=== PATIENT | male | born 1945 | race Caucasian/White ===

== ENCOUNTER 2017-05-05 23:49 | Inpatient (IN) ==
[2017-05-06] MEDS ORDERED: NS 1,000 ML IV ONE ×4 (00:05→00:58)
[2017-05-06] MEDS ORDERED: LANOXIN IV ONE ×2 (00:16→10:36)
[2017-05-06] MEDS ORDERED: OFIRMEV 1000 MG/ISOTONIC SOLN 1,000 MG/100 ML BOTTLE IV ONE (00:17)
[2017-05-06] MEDS ORDERED: VANCOMYCIN 1 GM/NS 1 GM/250 ML IVPB IV ONE (00:49)
[2017-05-06] MEDS ORDERED: VANCOMYCIN 2,000 MG in NS 500 ML IV ONE (01:00)
[2017-05-06 01:06] LABS: BASO% 0.1 % (0.0-0.8); EOS# 0.07 X1000 (0.0-0.7); EOS% 0.8 % (0.0-10.0); HEMATOCRIT 27.7 % (42.0-52.0); IMM GRAN# 0.02 X1000 (0.0-0.04); IMM GRAN% 0.2 % (0.0-0.5); LYMPH% 2.4 % (20.5-51.1); MANUAL DIFF NEEDED? NO; MCHC 32.5 g/dL (33-37); MONO# 0.76 X1000 (0.11-0.59); MONO% 9.2 % (1.7-9.3); NEUT% 87.3 % (42.2-75.2); PLT 166 X1000 (130-400); RBC 3.22 XMIL (4.7-6.1)
[2017-05-06 01:09] LABS: ALBUMIN 3.5 g/dL (3.5-5.0); CALCIUM 8.9 mg/dL (8.8-10.2); INR 1.19; POTASSIUM 3.9 mmol/L (3.5-5.1); PROTIME 12.6 Seconds (9.2-11.7); PTT 33.4 Seconds (22.0-36.0); TOTAL BILIRUBIN 0.8 mg/dL (0.20-1.00); TOTAL PROTEIN 7.3 g/dL (6.3-8.3)
[2017-05-06 01:14] LABS: URINE MICRO REVIEW NEEDED? NO; URINE SOURCE CATH
[2017-05-06 01:16] LABS: BILIRUBIN URINE NEGATIVE (NEGATIVE); BLOOD URINE MODERATE (NEGATIVE); COLOR YELLOW; GLUCOSE URINE NEGATIVE (NEGATIVE); LEUKOCYTES URINE MODERATE (NEGATIVE); NITRITE URINE NEGATIVE (NEGATIVE); PH URINE 5.5; PROTEIN URINE 50 mg/dL (NEGATIVE); SP GRAVITY URINE 1.015; TURBIDITY URINE HAZY (CLEAR); UROBILINOGEN URINE NORMAL (NORMAL)
[2017-05-06 01:17] LABS: UR EPITHELIAL CELLS <10 /HPF (<10); URINE BACTERIA 2+ /HPF
[2017-05-06 01:31] LABS: CK INDEX 1.8 (0.0-2.5); CK-MB 3.89 ng/mL (0.0-5.0)
[2017-05-06] MEDS: LEVOPHED 8 MG in D5 1/2 NS 250 ML IV SCH ×4 (01:57→02:55)
--- NOTE | 2017-05-06 02:03 | PROVIDER DOCUMENTATION ---
This chart was entered by Sharon Calzada Scribe, acting as scribe for Ruperto Henning MD. HPI-General Adult - General Stated Complaint: weakness Time Seen by Provider: 05/05/17 23:54 Source: patient Allergies/Adverse Reactions: Patient Allergies Allergy/AdvReac Type Severity Reaction Status Date / Time bacitracin Allergy Intermediate RASH Verified 12/17/16 17:13 [From Neosporin ([id number])] bacitracin zinc * Allergy Intermediate RASH Verified 12/17/16 17:13 [From Neosporin ([id number])] neomycin sulfate * Allergy Intermediate RASH Verified 12/17/16 17:13 [From Neosporin ([id number])] polymyxin B Allergy Intermediate RASH Verified 12/17/16 17:13 [From Neosporin ([id number])] Home Medications: Home Medication List Medication Instructions Recorded Confirmed Last Taken Type Aspirin 325 mg PO QHS 08/20/13 12/17/16 12/16/16 History Furosemide [Lasix] 40 mg PO BID 08/20/13 12/17/16 12/16/16 History Isosorbide Mononitrate [Isosorbide 60 mg PO DAILY 08/20/13 12/17/16 12/16/16 History Mononitrate ER] Labetalol [Trandate] 400 mg PO TID 08/20/13 12/17/16 12/16/16 History Metformin [Glucophage] 1,000 mg PO BID CC 08/20/13 12/17/16 12/16/16 History Minoxidil 2.5 mg PO BID 08/20/13 12/17/16 12/16/16 History Montelukast [Singulair] 10 mg PO DAILY 08/20/13 12/17/16 12/16/16 History Nitroglycerin [Nitroglycerin 1 spray SL Q5M PRN 08/20/13 12/17/16 06/21/16 History Lingual [place]] Omeprazole [Prilosec] 40 mg PO DAILY 08/20/13 12/17/16 12/16/16 History Potassium Chloride 20 meq PO BID 08/20/13 12/17/16 12/16/16 History Tamsulosin [Flomax] 0.4 mg PO DAILY 08/20/13 12/17/1612/16/17 History Triazolam [Halcion] 0.125 mg PO QHS 08/20/13 12/17/16 12/16/16 History Apixaban [Eliquis] 2.5 mg PO BID 06/29/16 12/17/16 12/16/16 History Cyanocobalamin (Vitamin B-12) 1,000 mcg PO BID 06/29/16 12/17/16 12/16/16 History [Vitamin B-12] Folic Acid 1 mg PO 1200 06/29/16 12/17/16 12/16/16 History Ranolazine [Ranexa] 500 mg PO BID 06/29/16 12/17/16 12/16/16 History Hydrocodone/Acetaminophen [[place] 1 each PO Q4HR PRN 06/30/16 12/17/16 12/16/16 History 10-325 Tablet] Magnesium Citrate [Citrate of 296 ml PO DIRECTED #0 bottle 06/30/16 12/17/16 Unknown Rx Magnesia] Colestipol [Colestid] 1 gm PO DAILY 12/17/16 12/17/16 12/16/16 History Losartan/Hydrochlorothiazide 1 each PO DAILY 12/17/16 12/17/16 12/16/16 History [Hyzaar 100-25 Tablet] ATORVAstatin [Lipitor] 20 mg PO HS #0 tablet 12/18/16 Unknown Rx Acetaminophen [Tylenol] 650 mg PO Q6H PRN PRN #0 tablet 12/18/16 Unknown Rx Benzonatate [Tessalon Perle] 100 mg PO TID #60 capsule 12/18/16 Unknown Rx Clobetasol Prop 0.05% Cream 0 gm TOP BID #0 tube 12/18/16 Unknown Rx [Temovate 0.05% Cream] Multivitamins/Minerals [Centrum 1 each PO DAILY #0 tablet 12/18/16 Unknown Rx Silver] - History of Present Illness -Gen Adult Nature of Presenting Problems: 71 Y/O M presents to ED with Weakness. Pt states that he's been feeling fatigue all day, no other c/o. Pt is a poor historian, family states memory issues. Pt family states increased weakness since Wednesday, pt c/o of sore throat noted by family members. pt had a CT scan done due to incontinence issues yesterday. Location of Pain/Injury: reports: generalized Quality of Pain: reports: aching Severity: reports: moderate, severe Onset/Duration: reports: 4 days ago Timing: reports: still present Context/Activities at Onset: reports: none Associated Symptoms: reports: fatigue, genitourinary problems, weakness. denies : fever/chills Similar Symptoms Previously?: No Review of Systems - Adult - REVIEW OF SYSTEMS - ADULT Constitutional: reports: fever, fatique. denies: chills Eyes: reports: no symptoms reported Ears, Nose, Mouth & Throat: reports: no symptoms reported Cardiovascular: reports: irregular heart rate Respiratory: reports: no symptoms reported Gastrointestinal: reports: no symptoms reported Genitourinary: reports: incontinence. denies: dysuria, discharge Musculoskeletal: denies: bone pain, muscle aches, muscle weakness Integumentary: reports: no symptoms reported Neurological: reports: no symptoms reported Psychiatric: reports: no symptoms reported Endocrine: reports: no symptoms reported Hematologic/Lymphatic: reports: no symptoms reported Allergic/Immunologic: reports: no symptoms reported All Other Systems: Reviewed and Negative Past History - Adult - PAST MEDICAL HISTORY-ADULT Review of Records: reports: Old Records Reviewed, Nursing Assessment Review, Medications Reviewed, Social history reviewed & non-contributory. Cardiovascular: reports: HTN Respiratory: reports: sleep apnea Endocrine/Immune: reports: Diabetes Other Conditions: reports: other cancer (melanoma) - PRIOR SURGERIES/PROCEDURES Surgical/Procedure History: reports: CABG - IMMUNIZATION STATUS Childhood Immunizations: See Nurse Assessment Flu Vaccine: See Nurse Assessment - FAMILY HISTORY Family History: reviewed, not pertinent Physical Exam-General - CONSTITUTIONAL General Appearance: alert, mild distress - EYES Eyes: PERRL/EOMI, pink conjunctivae - HEAD, EARS, NOSE, MOUTH & THROAT HENMT: moist mucous membranes, normal ENT inspection, TMs normal, pharynx normal - NECK Neck: non-tender, full range of motion, supple, normal inspection - RESPIRATORY Respiratory: lungs clear - CARDIOVASCULAR Cardiovascular: tachycardia, other (afib) - GASTROINTESTINAL (ABDOMEN) Abdominal Exam: non tender, soft - MUSCULOSKELETAL Back Exam: normal inspection Extremity: pedal edema (1+ right leg), other (rt hand amputated) - SKIN Integumentary: normal turgor, warm/dry - PSYCHIATRIC Psych/Mental Status: oriented x 3 Progress - PLAN OF CARE/RESULTS Progress/Plan/Lab Results: Orders Category Date Time Status EKG [EKG] Stat Ther 05/06/17 00:00 Ordered Result Diagrams: 05/06/17 00:05 05/06/17 00:05 - EKG 1 Time of EKG reading by physician:: 23:58 EKG Read and Signed by:: Ruperto Henning EKG Interpretation (*Must complete 3 of following elements*): Abnormal Rate: 134 Rhythm: Afib with RVR QRS: other (Marked ST abnormality, possible inferolateral subendocardial injury. ) Comments: Abnormal ECG - CT/MRI 1 CT Study: Renal Stone Impression: Abnormal CT Results: no renal stone identified study ordered by 05/04/[address] Study: Thorax Impression: Normal CT Results: NAD 3 CT Study: Head Impression: Normal CT Results: nad - CONSULTS/PCP/HOSPITALIST Notification #1 *Consult/PCP/Hospitalist*: Time Discussed: 01:48 Reason/Comments: Admit Consult Disposition: Admit (Admit Accepted) Departure - Departure Date of Disposition Decision: 05/06/17 Time of Disposition Decision: 02:00 DIAGNOSIS: UTI (urinary tract infection) Qualifiers: Urinary tract infection type: acute pyelonephritis Qualified Code(s): N10 - Acute pyelonephritis Sepsis Qualifiers: Sepsis type: sepsis due to unspecified organism Qualified Code(s): A41.9 - Sepsis, unspecified organism Renal failure (ARF), acute on chronic Qualifiers: Acute renal failure type: unspecified Chronic kidney disease stage: unspecified stage Qualified Code(s): N17.9 - Acute kidney failure, unspecified; N18.9 - Chronic kidney disease, unspecified Disposition: ADMITTED INPATIENT 09 Certified Medical Emergency: Emergent Condition: Serious Referrals and Follow-Ups: Sky Flores MD [Primary Care Provider] - - Critical Care Note This patient required my direct & personal management of CC.: Yes Total Time (mins): 120 Critical Care Statement: This patient required my direct personal management to treat or rule out processes, the absence of which, could potentiallly result in sudden, clinically significant life or limb threatening deterioration. This chart was documented by the indicated scribe, ([place],Sharon, Scribe) and accurately reflects the services I performed and decisions made by me, Ruperto Henning MD, as attested by the provider's signature.
[2017-05-06 02:27] LABS: HEMOGLOBIN A1C 6.5 % (4.8-6.0)
[2017-05-06] MEDS ORDERED: MAXIPIME 1 GM/NS 1 GM/50 ML IVPB IV ONE (03:16)
[2017-05-06] MEDS ORDERED: NS 1,000 ML IV SCH (03:17)
[2017-05-06] MEDS ORDERED: ZOFRAN IV PRN (03:17)
[2017-05-06] MEDS ORDERED: NORCO-7.5 PO PRN (05:01)
--- NOTE | 2017-05-06 05:06 | SEPSIS: TISSUE PERFUSION ASSMT ---
Sepsis: Tissue Perfusion Assmt - Physical Exam Assessment Date: 05/06/17 Time Assessment Initialized: 02:00 Vital Signs: Last Vital Signs Temp 98.8 F 05/06/17 02:18 Pulse 114 H 05/06/17 03:59 Resp 23 05/06/17 03:59 BP 106/64 05/06/17 03:59 Pulse Ox 98 05/06/17 03:59 Lung Sounds:: lungs clear Heart Sounds:: Regular Capillary Refill Time: Less Than 2 Seconds Peripheral Pulse Evaluation:: radial (R): 3+, radial (L): 3+, dorsalis-pedis (R) : 3+, dorsalis-pedis (L): 3+ Skin Exam:: pink, turgor good - Impression Impression:: Tissue Perfusion Adequate - Plan Plan:: See Orders
--- NOTE | 2017-05-06 05:56 | EKG Report ---
Test Performed on : 05/05/2017 11:58:22 PM Test Reason : Weakness Blood Pressure : / mmHG Vent. Rate : 134 BPM Atrial Rate : 125 BPM P-R Int : 000 ms QRS Dur : 092 ms QT Int : 312 ms P-R-T Axes : 000 022 205 degrees QTc Int : 465 ms Atrial fibrillation. with rapid ventricular response. Marked ST abnormality, possible inferolateral subendocardial injury Abnormal ECG When compared with ECG of 18-DEC-2016 07:20, Vent. rate has increased BY [address] now depressed in Anterior leads T wave inversion now evident in Inferior leads T wave inversion now evident in Anterolateral leads Unconfirmed Result
[2017-05-06 06:03] LABS: URINE CULTURE NEEDED? YES
[2017-05-06] MEDS: HUMALOG SUBQ SCH ×4 (06:09→20:54)
--- NOTE | 2017-05-06 06:20 | Diag Imaging Result Doc PS360 ---
EXAM: CHEST-PORTABLE HISTORY: fever TECHNIQUE: Portable COMPARISON: 12/17/2016 FINDINGS: There are sternal wires and surgical clips. The heart is mildly enlarged. There is pulmonary edema. No pleural effusions identified. Questionable underlying infiltrate in the left base. IMPRESSION: 1.Cardiomegaly with pulmonary edema 2.Possible underlying infiltrate in the left base. Follow-up films recommended. Electronically signed by Fidel Carter 05/06/2017 6:18 AM
--- NOTE | 2017-05-06 06:24 | Diag Imaging Result Doc PS360 ---
EXAM: HEAD W/O CONTRAST HISTORY: fall TECHNIQUE: COMPARISON: 12/17/2016 FINDINGS: No parenchymal hemorrhage. No epidural or subdural hematoma. No subarachnoid hemorrhage. No mass identified on this noncontrasted exam. No hydrocephalus. There are chronic microvascular ischemic changes. Mild atrophy. No sinus opacification. IMPRESSION: 1.No hemorrhage. No injury. 2.Mild atrophy with chronic microvascular ischemic changes. 3.A preliminary report was given at 1:54 AM. Electronically signed by Fidel Carter 05/06/2017 6:22 AM
[2017-05-06] MEDS ORDERED: TYLENOL PO PRN (06:45)
--- NOTE | 2017-05-06 07:37 | Diag Imaging Result Doc PS360 ---
EXAM: CT THORAX W/O CONTRAST INDICATION: poss sepsis COMPARISON: 06/04/2016 FINDINGS: There are several bilateral lung nodules. Many of these are stable. There is a nodule in the right lower lobe on image 87 of series 3 that is not identified on the previous study measuring up to 7 mm. There is another nodule at the superior aspect of the right lower lobe abutting the posterior chest wall that measures up to 1.7 cm axially. This was probably the same nodule that was seen on the previous study where it measures 1.3 cm axially. Note that there was an attempted CT guided biopsy of this nodule on 06/29/2016. The pathology results are unknown. There is a lingular nodule on image 64 series 3 that may have increased marginally in size measuring up to 8.4 mm. The other nodules are essentially stable. There is mild dependent atelectasis at the lung bases. There is mild paraseptal emphysema at the upper lung zones. There is no pleural fluid collection and no pneumothorax. There is stable cardiomegaly. There are few calcified mediastinal and hilar lymph nodes indicating prior granulomatous disease. There is no new lymphadenopathy. There is a small amount of retained debris in the midesophagus. Esophageal wall is questionably slightly thickened. Correlate clinically to exclude mild esophagitis. There is bilateral adrenal gland thickening similar to the previous study, likely representing adrenal hyperplasia or underlying adrenal adenomas. There are calcified granulomata in the liver and spleen. The spleen is enlarged. The liver is partially imaged but is probably enlarged as well. IMPRESSION: 1.Several bilateral lung nodules as described with a new nodule on the right in the lower lobe and a couple nodules that have increased in size. Please see above discussion. 2.Small amount of debris in the midesophagus. Although questionable, there may be very minimal diffuse esophageal wall thickening, which could relate to esophagitis. 3.Splenomegaly and possible hepatomegaly. 4.Other incidental/nonacute findings detailed above. Electronically signed by Estuardo Perry 05/06/2017 7:35 AM
[2017-05-06 08:01] LABS: ALBUMIN 3.4 g/dL (3.5-5.0); CALCIUM 8.7 mg/dL (8.8-10.2); POTASSIUM 4.1 mmol/L (3.5-5.1)
[2017-05-06 08:04] LABS: BASO% 0.2 % (0.0-0.8); EOS# 0.02 X1000 (0.0-0.7); EOS% 0.2 % (0.0-10.0); HEMATOCRIT 29.4 % (42.0-52.0); HEMOGLOBIN 9.6 g/dL (14.0-18.0); IMM GRAN# 0.02 X1000 (0.0-0.04); IMM GRAN% 0.2 % (0.0-0.5); LYMPH# 0.38 X1000 (1.2-3.4); LYMPH% 4.1 % (20.5-51.1); MANUAL DIFF NEEDED? YES; MCH 28.4 PG (27-31); MCHC 32.7 g/dL (33-37); MONO# 0.33 X1000 (0.11-0.59); MONO% 3.6 % (1.7-9.3); MPV 10.6 FL (7.4-10.4); NEUT% 91.7 % (42.2-75.2); PLT 150 X1000 (130-400); RBC 3.38 XMIL (4.7-6.1)
[2017-05-06] MEDS ORDERED: NITROGLYCERIN SL PRN (08:04)
[2017-05-06] MEDS ORDERED: LABETALOL IV PRN (08:06)
[2017-05-06] MEDS ORDERED: LABETALOL IV ONE (08:06)
[2017-05-06] MEDS ORDERED: LASIX IV ONE (08:09)
[2017-05-06 08:10] LABS: LYMPHS 4 % (21-51); MONO 4 % (1-9)
[2017-05-06 08:25] LABS: CK-MB 7.7 ng/mL (0.0-5.0)
[2017-05-06 08:32] LABS: IRON SATURATION 6 %; TIBC 219 ug/dL; TOTAL IRON 14 ug/dL (53-167); UNBOUND IRON 205 ug/dL (112-346)
[2017-05-06 08:51] LABS: FERRITIN 196 ng/mL (30-400)
--- NOTE | 2017-05-06 08:55 | HISTORY AND PHYSICAL ---
PRIMARY CARE PROVIDER: Dr. Sky Flores. DATE AND TIME: May 06, 2017 at 0200. CHIEF COMPLAINT: Weakness, altered mental status, and multiple falls. HISTORY OF PRESENT ILLNESS: Mr. Dueñas is a 71-year-old male who presented to the ER [facility] with increasing weakness, altered mental status, and multiple falls over the past week. His family which include his son and his at bedside reported that since Wednesday the patient has had increasing weakness, confusion. He has fallen a total of 4 times. He has also had some nausea and vomiting as well and has had some hematuria. The patient's states that on Wednesday when he fell he did hit his head, though they denied any loss of consciousness. She states that since Wednesday he has also had symptoms of urinary incontinence. His reports that on Wednesday she tried to get a hold of Dr. Flores's office though was unable to do so and did get a hold of Dr. Brown's office and reported to them his symptoms of hematuria. Dr. Brown ordered a renal CT. He reported that his symptoms though continued to worsen and last night just prior to the patient's arrival to the ER he fell and was unable to get up off the floor, so his son and called an ambulance to come bring him to the ER for further evaluation. Upon arrival to the ER the patient was found to be febrile with a temperature of 103.1 degrees, heart rate 134, in atrial fibrillation with RVR, respirations were 30, blood pressure was 96/54. Oxygen saturation was 100% nasal cannula at 5 L. The patient was initially confused according to ER staff upon arrival. Shortly after his arrival the patient did become increasingly hypotensive. His blood pressure got down to as low as 74 systolic. He was started on sepsis protocol and given a fluid bolus according to sepsis protocol recommendations. He has now had a total of 5 L of normal saline bolus, though unfortunately his pressure continued to remain low and was placed on a Levophed drip. His white blood cell count is within normal limits at 8.29. His lactate is 1.4. He was found to have increased creatinine and a GFR from his baseline. Urine showed moderate blood, moderate leukocytes, 10-20 white blood cells, and 2+ bacteria. His renal CT performed on the did show some findings that may relate to a urinary bladder cystitis with early pyelonephritis on the left. His CT of the chest showed some right pulmonary nodules in his lung, splenomegaly, possible hepatomegaly with some mild esophageal wall thickening with retained debris in the midesophagus. Also the patient does take Eliquis for what we have found to be atrial fibrillation. Patient's denied him having any previous history of atrial fibrillation, though looking back at previous EKGs the patient has had this previously on other admissions. We did do a CT of his head due to this, though it showed no acute intracranial findings. The patient denies any dizziness, lightheadedness, headache, chest pain, shortness of breath, or cough. He denies any abdominal pain, though has had some nausea and vomiting as previously mentioned. He denies any diarrhea, though states his last bowel movement was approximately 2-3 days ago. He denies any hematemesis, hematochezia, or melena. He does report some urinary incontinence and a strong odor to his urine but denies any dysuria. The patient does have some chronic low back pain but other than this, he denies any pain, numbness, tingling or swelling in extremities. At this time. The patient will be admitted for further treatment evaluation of sepsis, urinary tract infection, acute kidney injury, hypotension, atrial fibrillation. We will be admitted inpatient to the ICU. REVIEW OF SYSTEMS: A 14 point review of systems was conducted with the patient and all were negative except for pertinent positives mentioned above in the HPI. PAST MEDICAL HISTORY: 1. Coronary artery disease, status post myocardial infarction and stent placement in 2002 with subsequent coronary artery bypass graft in June of 2009. 2. Diabetes mellitus type 2. 3. Gastroesophageal reflux disease. 4. Chronic kidney disease. 5. History of melanoma skin cancer. 6. Chronic low back pain from multiple low back surgeries. 7. Iron deficiency. 8. Anemia. 9. Previous left pulmonary nodules, followed by Dr. Maurice. 10. Chronic kidney disease. 11. Atrial fibrillation, currently on Eliquis 2.5 mg b.i.d. 12. Hypertension. 13. Hyperlipidemia. PAST SURGICAL HISTORY: 1. Cardiac stent placement in 2002. 2. Coronary artery bypass graft in 2008. 3. Cholecystectomy in 2008. 4. Lumbar fusion May 2010. 5. Lumbar laminectomy in 2001, 2003, and 2012. 6. A total of 4 surgeries in 2001, 2004, 2006, and 2008 for a right ankle fracture with pin placement. 7. Right hand surgery after a traumatic amputation from an industrial accident in 1981. SOCIAL HISTORY: The patient is a former smoker. The patient smoked 3-4 packs a day for 52 years. He quit smoking in 2008 when he had his coronary artery bypass graft. He denies any past or present alcohol or illicit drug use. He currently lives at home with his . FAMILY HISTORY: Positive for a stroke, heart disease, and cancer which is thought to be melanoma cancer. ALLERGIES: The patient reports allergy to Neosporin stating it causes him to have a rash. HOME MEDICATIONS: Folic acid 1 mg p.o. daily, Halcion 0.125 mg p.o. at bedtime , Flomax 0.4 mg p.o. daily, Ranexa 500 mg p.o. b.i.d., potassium chloride 10 mEq p.o. b.i.d., omeprazole 40 mg p.o. daily, nitroglycerin 0.4 mg sublingual p.r.n. for chest pain, Centrum Silver 1 p.o. daily, Singulair 10 mg p.o. daily, minoxidil 2.5 mg b.i.d., metformin 1000 mg p.o. b.i.d., Hyzaar 100/25 mg tablet 1 p.o. daily, labetalol 400 mg p.o. t.i.d., isosorbide mononitrate extended release 60 mg p.o. daily, [place] 10 mg p.o. q.4 hours p.r.n. for pain, Lasix 40 mg p.o. b.i.d., vitamin B12 1000 mcg p.o. b.i.d., Colestid 1 g p.o. daily, Temovate 0.05% cream 1 g topically b.i.d., aspirin 81 mg p.o. at bedtime, Eliquis 2.5 mg p.o. b.i.d., and Lipitor 20 mg p.o. daily. DIAGNOSTIC DATA: Laboratory results: White blood cell count 8.29, hemoglobin 9 , hematocrit 27.7, platelet count is 166,000. PTT is 33.4, INR 1.19, PT is 12.6. Sodium 135, potassium 3.9, chloride 94, bicarb is 35, BUN 59, creatinine 3.5, with a GFR of 17, glucose 142 , hemoglobin A1c 6.5, calcium is 8.9, magnesium 1.8. Liver function tests are within normal limits. CK is 217, CK index 1.8, CK-MB 3.89. Troponin 0.260. ProBNP 6,065. Plasma lactate 1.4. Urinalysis was obtained via catheter and was positive for protein, moderate blood, moderate leukocytes, 10-20 white blood cells, and 2+ bacteria. Renal CT performed on 05/04/2017 showed distal hydroureter with periureteral edema on the left. There is mild perinephric edema or scarring on the left. Hazy infiltration of fat around the urinary bladder. These findings may relate to urinary bladder cystitis with early pyelonephritis on the left. A recently passed stone from the left may also be considered. There is also uncomplicated sigmoid diverticulosis. Stable hepatosplenomegaly and bilateral adrenal enlargement. This was per radiology. A CT of the head showed no intracranial abnormality. This was per radiology. CT of the chest noncontrast showed unchanged left and new right lung pulmonary nodules. There is also mild esophageal wall thickening with retained debris in the midesophagus. Splenomegaly and possible hepatomegaly. EKG showed atrial fibrillation with RVR at a rate of 134 with a QTc of 465. PHYSICAL EXAMINATION: VITAL SIGNS: Temperature 98.8 degrees, heart rate 125, respirations 26, blood pressure 108/47, oxygen saturation is 97% nasal cannula at 2 L. GENERAL: Mr. Dueñas is a pleasant, 71-year-old male, who is resting in the ER stretcher. He was in no acute distress. He was awake and alert and able to answer questions appropriately. HEENT: Head is atraumatic, normocephalic. Pupils are equal, round, reactive to light, were 3 mm bilaterally and brisk. Sub conjunctivae were pink. Oral mucosa is slightly dry. Oropharynx is clear. NECK: Supple. Trachea midline. No carotid bruits noted upon auscultation bilaterally. There is some JVD noted. CARDIOVASCULAR: Patient has normal S1, S2. No murmurs, gallops, or rubs appreciated, with a tachycardic rate that is regular. PULMONARY: Patient has symmetrical chest expansion bilaterally. Lung sounds were clear in bilateral full son. ABDOMEN: Soft, nontender, though does appear to be slightly distended as the patient has a protuberant abdomen noted. Bowel sounds are present in all 4 quadrants, normoactive. GENITOURINARY: Patient does have a Dunn catheter in place at this time. He has slightly cloudy kang color urine noted to the Dunn drainage bag. EXTREMITIES: No cyanosis. No clubbing or edema noted. Pulse, motor, and sensory are noted in bilateral lower extremities and left upper extremity. The patient does have an amputation of his right arm right around the elbow, though he does have positive movement, sensation, and good capillary refill less than 3 in this extremity. Capillary refill is also less than 3 and other extremities as well. INTEGUMENTARY: Patient's skin is pink, warm, dry, and intact. The patient does have a hard, thickened callus noted to his left great toe, as well as he is third right toe. He does have a previous amputation of his right great toe noted as well. NEUROLOGICAL: Patient is alert and oriented to person, place, and time. Cranial nerves 2 through 12 appear to be grossly intact. ASSESSMENT AND PLAN: 1. Sepsis. At this time we think this is likely related to a urinary tract infection and possibly early pyelonephritis. We have placed the patient to receive Maxipime 1 g IV initially and then will do 1 g IV q.24 hours for renal dosing. Blood cultures have been obtained as well as a urine culture. He has been fluid resuscitated according to the sepsis protocol and we will continue to follow closely. 2. Urinary tract infection. We will continue treatment as mentioned above in # 1 and continue to follow. 3. Acute kidney injury. The patient does have a history of chronic kidney disease. Though compared to previous labs, there has been a decrease in his renal function. His creatinine is 3.5, BUN is 59 with a GFR of 17. The patient has been fluid resuscitated. We will continue with gentle fluid infusion of normal saline at 75 mL/h. We will monitor his intake and output very closely. We have placed a consult with Dr. Brown and we will await his evaluation and further recommendations. 4. Hypotension. The patient I do believe is septic from a possible urinary tract infection, though he does not appear to be in septic shock. He does have a normal lactate. He does have adequate tissue perfusion. It is possible since he does have acute kidney injury with a decrease in his renal function that is quite significant from his baseline and he does take several antihypertensive medications, this may be due to a buildup of these and this could be causing his hypotension as well due to he has received 5 L normal saline bolus and subsequently still had to be placed on a Levophed drip to maintain adequate blood pressure. We will continue with the Levophed drip, monitor his vital signs closely, and continue to follow. We have held all of his blood pressure medications at this time. 5. Atrial fibrillation. The patient did receive a one time dose of 250 mcg IV digoxin in the ER. With this along with fluid boluses his heart rate has improved. It is down to 107 at this time, atrial fib. We have placed a consult with cardiology and will await their evaluation and further recommendations. We have also placed order for an echo in the morning. We will do a series of cardiac enzymes and repeat an EKG in the morning. The patient normally takes Eliquis 2.5 mg twice a day though given his renal function at this time, we have decided to switch him to heparin 5000 units q.12 hours so that we can better control this. 6. Coronary artery disease, status post cardiac stent placement and coronary artery bypass graft. We will continue with the patient's aspirin and continue to follow. 7. Diabetes mellitus type 2. We have held his oral diabetic medications and have placed him on a insulin lispro low-dose sliding scale. We will continue to follow. 8. Anemia of chronic disorder. This is likely related to the patient's history of chronic kidney disease, though he does take folate and vitamin B12 and has previously had to have iron infusions. We will order an anemia profile and continue to follow, though his numbers look stable compared to previous labs. 9. Deep vein thrombosis prophylaxis. We will continue with heparin 5000 units q.12 as mentioned above. 10. Gastroesophageal reflux disease and gastrointestinal prophylaxis. We will continue the patient's omeprazole 40 mg p.o. daily. 11. He will be placed in ICU with telemetry. He will have vital signs per ICU protocol. He will be placed on aspiration precaution as well as fall precautions. We will do q.4 hours neuro checks. He will be on a diabetic diet. 12. We also did discuss the patient's resuscitation status. The patient does not have a Power of [employer] but does have a Living Will. He was alert and oriented to person, place, time during this conversation and his was present at bedside. The patient at this time does want CPR to be performed as well as intubation, defibrillation, and for cardiac medications to be given. He has been placed a full code. Further orders and recommendations pending hospital course, diagnostic studies, and physician evaluation. Dictated by ESA Bowers for Candace Li MD Seen and examined and discussed pt with SHAP[employer] SET UP OPERATOR cc: MD Sky Herrera MD [facility]
[2017-05-06] MEDS ORDERED: HEPARIN SUBQ SCH (09:00)
[2017-05-06] MEDS: CENTRUM SILVER PO SCH (09:46)
[2017-05-06] MEDS: VITAMIN B-12 PO SCH ×2 (09:46→20:53)
[2017-05-06] MEDS: RANEXA PO SCH ×2 (09:46→20:53)
[2017-05-06] MEDS: FLOMAX PO SCH (09:46)
[2017-05-06] MEDS: FOLIC ACID PO SCH (09:46)
[2017-05-06] MEDS: PRILOSEC PO SCH (09:46)
[2017-05-06] MEDS: LIPITOR PO SCH (09:46)
[2017-05-06] MEDS ORDERED: TRANDATE PO SCH (10:30)
[2017-05-06] MEDS: ASPIRIN PO SCH (11:38)
--- NOTE | 2017-05-06 11:49 | CONSULTATION ---
DATE OF CONSULTATION: 05/06/2017 Cardiology was consulted for atrial fibrillation, known coronary artery disease, altered mental status, and multiple falls. HISTORY OF PRESENT ILLNESS: Mr. Dueñas is a 71-year-old gentleman, who was admitted with increasing weakness and altered mental status with multiple falls over the past week. History was obtained from the chart, as well as discussing with the patient. The patient states that he feels much better today compared to the last couple of days. He does not remember exactly what had been going on; however, he had seen his house calls nurse, Dr. Marks. From a cardiac standpoint, he does not complain of any chest pain, at least at the present time and prior to this he has not had any chest pain. He has chronic shortness of breath. He has sleep apnea, as well, and multiple other problems as listed below. He had fallen multiple times. Family had stated that he had not lost consciousness but was disoriented. In the emergency room he was noted to have a fever of 103, heart rate of 134 in atrial fibrillation, and a blood pressure of 74 systolic. He was started on the Levophed drip. He was also given normal saline bolus and had urine infection with moderate blood, moderate leukocytes, 10-12 WBCs, and 2+ bacteria. His renal CT performed on the did show some findings of urinary bladder cystitis, pyelonephritis on the left. CT of the chest showed a pulmonary nodules, which had been there in the past. REVIEW OF SYSTEMS: A 14-point review of system was done. GI System: Patient does not complain of nausea, vomiting, hematemesis, or melena. Central nervous system: He says he feels much better. No focal weakness to suggest a CVA or transient ischemic attack. Genitourinary System: As above. Cardiovascular System: No chest pain. He does not remember the situation when he was admitted; however, in the recent past no syncopal episode. PAST MEDICAL HISTORY: 1. Coronary artery disease, status post coronary artery bypass grafting with WHITAKER to left anterior descending artery, SVG to obtuse marginal artery. Cardiac catheterization 01/09/2005, RCA distal PTCA with drug-eluting stents. CABG was on 06/13/2013. 2. Last cardiac catheterization February,. That is when he underwent a PTCA with a drug- eluting stent to RCA and his grafts, WHITAKER, and SVG were patent. 3. Chronic atrial fibrillation. 4. Chronic anticoagulation therapy. 5. Pulmonary arterial hypertension. Last echocardiogram ejection fraction of 60-65%. 6. Hyperlipidemia. 7. Diabetes mellitus. 8. Last stress test in 2016, no evidence of ischemia. 9. Esophageal stricture, status post dilatation. 10. Pulmonary nodules. 11. Morbid obesity. 12. Sleep apnea. 13. Gastroesophageal reflux disease. 14. Diabetes. 15. Colon diverticulosis. OTHER SURGERIES: 1. Lumbar fusion in 2009. 2. Lumbar laminectomy 2001, 2003, 2012. 3. Ankle fracture. 4. 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 SOCIAL HISTORY: Patient is a former smoker. Smoked about 3-4 packs for 52 years. He quit smoking in 2008. FAMILY HISTORY: Was positive for stroke and cerebrovascular accident. ALLERGIES: Patient is allergic to Neosporin. HOME MEDICATIONS: Folic acid 1 mg p.o. b.i.d., Halcion 0.125 mg at bedtime, Flomax 0.4, Ranexa 500 b.i.d., potassium supplements 10, omeprazole 40, nitroglycerin, Singulair 10, minoxidil 2.5 mg p.o. b.i.d., metformin 1000 b.i.d., Hyzaar 125 one tablet daily, labetalol 400 mg p.o. t.i.d., isosorbide mononitrate 60, [place] 10, Lasix 40 mg p.o. b.i.d., multivitamins, B12 1000 mcg p.o. b.i.d., Colestid 1 g p.o. daily, Eliquis 2.5 mg p.o. b.i.d., Lipitor 20, aspirin 81 mg a day, Temovate 0.05% cream 1 g topical twice daily. PHYSICAL EXAMINATION: Vital Signs: Blood pressure on the Levophed drip was 104/60, heart rate 115, irregular. Neck: Jugular venous pressure was elevated. First and second heart sounds were heard. There was faint murmur. Respiratory System: Scattered expiratory wheeze. Abdomen: Soft, obese, nontender. There was no guarding or rigidity. Bowel sounds were heard. Extremities: He was moving all 4 extremities. Central nervous system: Detailed examination not performed, but was answering questions appropriately. Hand: Examination of his right hand has chronic traumatic injury in the past. HEENT: Atraumatic. Pupils reacting to light. LABORATORY EXAMINATION: 1. Revealed sodium 137, potassium 4.1. BUN 52, creatinine 2.9. When he came in his best creatinine was 3.5. 2. Creatinine kinase 256, CK-MB 7.7, troponin abnormal at 0.322. 3. Hematology: Hemoglobin 9.6, hematocrit 29, platelet count 150,000. WBC 9.17. 4. CT scan of his chest revealed several bilateral lung nodules with new nodule on the right lower lobe that had been chronic in the past. A small amount of mid- esophagus debris. 5. Splenomegaly and hepatomegaly, possibly noted. 6. A CT scan of his head was unremarkable. There was no acute bleed. 7. Microbiology: Blood cultures and urine culture pending. CURRENT MEDICATIONS: Include Levophed and antibiotics and Maxipime. ASSESSMENT AND PLAN: Mr. Ismael Dueñas is a 71-year-old gentleman, who is admitted with altered mental status. Had a fever of 103. Urine was abnormal and had urinary pyelonephritis and cystitis in the recent scans. He is admitted with urosepsis and started on IV antibiotics. Since admission, he says he feels much better. He is more oriented today. From a cardiac standpoint, he has had multiple problems including coronary artery disease, coronary artery bypass grafting, multiple stents in the past, chronic atrial fibrillation, pulmonary arterial hypertension, and has diabetes, and morbid obesity. From a cardiac standpoint: 1. His cardiac enzymes were abnormal. This is probably multifactorial, related to acute on chronic renal insufficiency, which is probably related to sepsis urinary tract infection. We will get serial cardiac enzymes. He denies chest pain. 2. Will get an echocardiogram to reassess cardiac and valvular function. 3. His electrocardiogram revealed atrial fibrillation, which has been chronic. Right now he is on a Levophed drip. We will give him 1 dose of digoxin for rate control and put him back on labetalol 100 b.i.d. Continue with the aspirin and Eliquis. Will hold other medications, as he is a hypotensive requiring Levophed. His electrocardiogram does not show acute ST-T changes and I suspect this abnormal troponin is secondary to acute renal insufficiency and sepsis; however, we will follow hospital course. 4. He said he uses oxygen at home and probably has sleep apnea and uses a CPAP machine at home as well. Thank you for the consult. We will follow hospital course. cc: MD Sky Yousif MD
[2017-05-06 14:57] LABS: CK INDEX 2.7 (0.0-2.5); CK-MB 7.53 ng/mL (0.0-5.0)
[2017-05-06] MEDS: NORCO-10 PO PRN ×2 (15:15→21:38)
--- NOTE | 2017-05-06 15:59 | ECHO REPORT ---
ORDER DATE: 05/06/2017 INDICATION: Atrial fibrillation with rapid ventricular response, hypotension. COMMENT: This is an extremely difficult study. The patient's heart rate was anywhere from 120 to 140 beats per minute during the course of the study. Windows were extremely limited and very poor quality. FINDINGS: 1. Likely normal LV systolic function with an estimated left ventricular systolic function greater than 55 as well as normal RV systolic function. Measurements could not be assessed due to poor resolution of the endocardial borders. 2. The aortic valve appears to open well. It does not appear to be significantly stenotic. 3. No pericardial effusion seen. 4. Very poor visualization of the right heart overall. CONCLUSION: This is an extremely limited study with likely normal LV systolic function. Due to atrial fibrillation and rapid rates, I would recommend repetition of the study when the rate is better controlled for a better quality study with better endocardial resolution. cc: MD Sky Rodriguez MD
--- NOTE | 2017-05-06 16:04 | CONSULTATION ---
DATE OF CONSULTATION: 05/06/2017 REASON FOR ADMISSION: Weakness, altered mental status, multiple falls. CONSULTING PHYSICIAN: Dr. Sky Flores. REASON FOR CONSULTATION: Acute on chronic kidney disease, assist with medical management. HISTORY OF PRESENT ILLNESS: This is a 71-year-old gentleman known to our service for chronic kidney disease stage III with a baseline creatinine of 1.7. He was last seen in our office last October and was at that baseline. The patient called our office at the end of last week secondary to hematuria and nausea, vomiting. There was concern for renal stone and he had a renal stone search ordered. There was no stone found, however there were findings of possible early pyelonephritis or possibly previously-passed stone. Over the weekend the patient's symptoms got worse and came to the emergency room secondary to falling and unable to be able to get up. In the emergency room, he was found to be febrile with a temperature of 103.1 degrees in atrial fibrillation with RVR rate of 130s. He continued to have some confusion and was hypotensive with systolic in the 70s. He received saline bolus total of 5 L, but continued to have hypotension. He had a Levophed drip initiated. Continued workup indicated his creatinine was 3.5. So he was admitted to the hospital for further workup and treatment. He was placed in intensive care unit. Placed on pressor support, antibiotics. Today they have been able to wean his pressors down, but not off yet. The patient still is somewhat confused, wanting to go home. He does not really recall all the events prior to hospitalization. The patient today has no complaints and again is willing to go home. PAST MEDICAL HISTORY: 1. Chronic kidney disease stage III with a baseline creatinine of 1.7. 2. Hypertension. 3. Atrial fibrillation on anticoagulation. 4. Chronic anemia, iron deficiency. 5. GERD. 6. Diabetes. 7. Coronary artery disease. 8. Chronic low back pain. 9. History of pulmonary nodules. 10. Hypertension. 11. Hyperlipidemia. SURGICAL HISTORY: 1. Cardiac stenting: Cardiac artery bypass 2008. 2. Cholecystectomy. 3. Lumbar fusion 2009. 4. Lumbar laminectomy x3. 5. Ankle surgery x4. 6. 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 ALLERGIES: Neosporin causes a rash. HOME MEDICATIONS: 1. Folic acid. 2. Halcion. 3. Flomax. 4. Ranexa. 5. Potassium chloride. 6. Omeprazole. 7. Nitroglycerin. 8. Centrum Silver. 9. Singulair. 10. Minoxidil. 11. Metformin. 12. Hyzaar. 13. [place]. 14. Lasix. 15. Vitamin B 12. 16. Colestid. 17. Temovate. 18. Aspirin. 19. Eliquis. 20. Lipitor. FAMILY HISTORY: Vascular disease, CVA, heart disease, cancer. SOCIAL HISTORY: Former smoker. None since 2008. No EtOH or illicit drug use. He is retired from [employer]. REVIEW OF SYSTEMS: Pertinent positives noted above in the HPI. PHYSICAL EXAMINATION: Vital Signs: Temperature 99.6 degrees, pulse 115, respiratory rate 30, blood pressure 131/94. Intake 320 mL; output 815 mL. General: This is an elderly gentleman sitting up in bed. He is awake and alert. He has a large body habitus. HEENT : Normocephalic, atraumatic. Conjunctivae pink. Oral mucosa dry. Neck: Supple. Trachea midline. No JVD. Cardiovascular: Regular rate and rhythm. He remains tachycardic. Pulmonary: He has equal excursion. He is clear bilaterally with no increased work of breathing. Abdomen: Obese, soft, positive bowel sounds. : Not inspected. He has a Dunn catheter with yellow urine. Extremities: He has vascular changes noted to bilateral lower extremities. The right ankle is deformed. The left lower extremity has an old scar. 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 Integumentary: Skin is warm and dry otherwise. Neuro: Grossly nonfocal. LAB DATA: WBC of 9.1, hemoglobin 9.6, hematocrit 29.4, and platelet count 150. Sodium 137, potassium 4.1, CO2 24, BUN 52, creatinine 2.9 (3.5). ASSESSMENT AND PLAN: 1. Urosepsis with pyelonephritis. Patient has been placed on Maxipime. Make no changes. 2. Acute on chronic kidney disease secondary to #1. Renal function has improved overnight. He still about a point off of his baseline. 3. Hypotension. He remains on pressor support. 4. Electrolytes, acid-base balance. These are acceptable. 5. Anemia of chronic disease. He is on oral supplementations. He has an anemia profile ordered. He may need some intravenous iron. 6. Fluid volume. He is not overloaded at this time. Seen, data reviewed, discussed with Reji Cade on 05/06/17. I agree with the above assessment and plan of care. rg Dictated by ESA Flaherty for Rey Brown MD cc: MD Sky Lubin MD [facility]
[2017-05-06] MEDS: ELIQUIS PO SCH (20:54)
[2017-05-06] MEDS: AMBIEN PO SCH (20:54)
[2017-05-06] MEDS ORDERED: ASPIRIN PO SCH (21:00)
[2017-05-06] MEDS: TRANDATE PO SCH (21:04)
[2017-05-06] MEDS: ATIVAN IV PRN (22:59)
[2017-05-06 23:11] LABS: CK INDEX 2.8 (0.0-2.5); CK-MB 7.05 ng/mL (0.0-5.0)
[2017-05-06] MEDS ORDERED: STERILE WATER INJ. INJ ONE (23:51)
[2017-05-06] MEDS ORDERED: GEODON IM ONE (23:51)
[2017-05-07] MEDS ORDERED: STERILE WATER INJ. INJ ONE (00:17)
[2017-05-07] MEDS ORDERED: GEODON IM ONE (00:30)
[2017-05-07 04:31] LABS: ALLEN TEST YES; BE 0.1 mmoll (-3.0-3.0); BLOOD TYPE ARTERIAL; DRAW SITE L RADIAL; PCO2(98.6) 46 mmHg (35-45); PO2(98.6) 61 mmHg (60-100); SAMPLE BLOOD; pH(98.6) 7.36 (7.35-7.45)
[2017-05-07 04:32] LABS: MODALITY CANNULA
[2017-05-07] MEDS: MAXIPIME 1 GM/NS 1 GM/50 ML IVPB IV SCH (05:00)
[2017-05-07] MEDS: LEVOPHED 8 MG in D5 1/2 NS 250 ML IV SCH (05:00)
[2017-05-07] MEDS: ATIVAN IV PRN ×2 (05:18→22:26)
[2017-05-07 05:30] LABS: CALCIUM 9.1 mg/dL (8.8-10.2); POTASSIUM 3.6 mmol/L (3.5-5.1)
--- NOTE | 2017-05-07 06:20 | EKG Report ---
Test Performed on : 05/07/2017 05:46:20 AM Test Reason : dyspnea Blood Pressure : / mmHG Vent. Rate : 119 BPM Atrial Rate : 107 BPM P-R Int : 000 ms QRS Dur : 094 ms QT Int : 302 ms P-R-T Axes : 000 015 151 degrees QTc Int : 424 ms Atrial fibrillation. with rapid ventricular response. ST \T\ T wave abnormality, consider inferolateral ischemia Abnormal ECG When compared with ECG of 05-MAY-2017 23:58, (Unconfirmed) No significant change was found Confirmed by Higinio EM, Mani Arellano ([id number]) on 05/11/2017 2:13:44 PM
[2017-05-07] MEDS: HUMALOG SUBQ SCH ×4 (06:25→20:57)
--- NOTE | 2017-05-07 07:28 | PROGRESS NOTE ---
DATE: 05/07/2017 PRIMARY CARE PHYSICIAN: Sky Flores MD The patient is being followed by Cardiology and Nephrology currently. SUBJECTIVE: Overnight, much difficulty in the patient's acute delirium with agitation, unresponsive to Ativan, as concerns for benzodiazepine withdrawal were noted. Geodon was used x2 with improved effect. The patient is still demonstrating difficulty in focus and overt agitation. Findings consistent with delirium and toxicity. Orders placed at that time. Also of note, the patient had a critical troponin. Cardiology was notified. OBJECTIVE: Vital Signs: Temperature 99.6 degrees, pulse 112, respirations 25, O2 saturation 92% on 4 L nasal cannula. I/O's out in the realm of 1800 above and intake of 3290. Dunn placed. General: Extremely agitated male with overt loss of sensorium. Alert only to self. HEENT: OP is clear. Moist mucous membranes. Neck: Supple. CV: Tachycardic with irregular rate consistent with AFib. No murmur appreciated. Lungs: Showing decreased breath sounds at the bilateral bases. Tachypneic. Wet rhonchi noted. Abdomen: Protuberant. Bowel sounds scant. No tenderness to palpation noted. : Dunn is in place and draining. Concentrated urine. Lower Extremities: No cyanosis, clubbing, with trace edema noted. The patient is right-hand is surgically absent. Neurological: Cranial nerves 2-12 are grossly intact but there is increased movement consistent with psychomotor agitation. Psychiatric: The patient's loss of sensorium is mostly consistent with dementia versus delirium. Multiple repeated questions have been noted with inability to maintain a specific answer to those questions, i.e., short-term memory loss. LABS: Blood gas at 0400 hours shows pH of 7.36, pCO2 of 46, lactate of 0.9. Electrolytes show a BUN of 42 with a creatinine of 2.0, glucose 144-156, troponin staying steady at 0.495. Microbiology shows blood cultures x2 preliminary with gram-negative rods. Waiting for culture and speciation. Urine cultures currently pending. No overt findings at this time. Echo was performed yesterday but difficult to assess per Feet. Rubio Disla's read secondary to patient's rate. ASSESSMENT: 71-year-old male with: 1. Chronic atrial fibrillation. 2. Hypotension, on Levophed. 3. Abnormal troponin. 4. Respiratory distress. 5. Pyelonephritis. 6. Sepsis, gram-negative rods. 7. Acute delirium on chronic baseline dementia versus metabolic encephalopathy. PLAN: The plans are to continue patient in the ICU along with the Nephrology and Cardiology consultations. Patient will be redirected in with psychiatric medications including Geodon for sedation. We will continue the labetalol along with Eliquis and aspirin for the atrial fibrillation and attempt further rate control once patient has been discontinued from the Levophed drip. Liquids are being held right now. Acetaminophen given for the fever. The patient will continue on a vancomycin antibiotic dosing now day 2 and fevers. WBC and cultures will be followed. The patient is in critical condition and will be followed daily by the consulting team. cc: Sky Flores MD
--- NOTE | 2017-05-07 08:13 | PROGRESS NOTE ---
DATE: 05/07/2017 SUBJECTIVE: This morning, Mr. Dueñas states he is feeling okay. The nurse relates that he has been coughing all night and was drinking excessive amounts of fluid. He is now held n.p.o. PHYSICAL EXAMINATION: Blood pressure 120/86, heart rate 112, respirations 25, T-max 101.2 degrees. Intake 3.3 L. Output 5.2 L. PHYSICAL EXAMINATION: No acute distress. Skin is warm and dry. Conjunctivae are pink. Neck veins are distended. Trachea is midline. Heart has irregular rhythm, tachycardia. Lungs have equal breath sounds with a lot of upper airway noise but a few crackles. Abdomen is soft, nontender. Bowel sounds are present. Extremities have 2+ edema. No clubbing or cyanosis. LABORATORY DATA: Sodium 140, potassium 3.6, chloride 99, bicarbonate 21. BUN 42, creatinine 2.0. IMPRESSION: 1. Acute kidney injury overlying chronic kidney disease. His kidney function is approaching his historical baseline. 2. Crackles, elevated neck veins and edema. We will check a chest x-ray today. He is polyuric and was 2 L negative yesterday. As long as he remains polyuric, no diuretics are needed at this point. He is not currently receiving IV fluids. cc: MD Sky Lubin MD
[2017-05-07] MEDS: CENTRUM SILVER PO SCH (08:15)
[2017-05-07] MEDS: FLOMAX PO SCH (08:15)
[2017-05-07] MEDS: VITAMIN B-12 PO SCH ×2 (08:15→20:56)
[2017-05-07] MEDS: ELIQUIS PO SCH ×2 (08:15→20:56)
[2017-05-07] MEDS: FOLIC ACID PO SCH (08:15)
[2017-05-07] MEDS: PRILOSEC PO SCH (08:15)
[2017-05-07] MEDS: RANEXA PO SCH ×2 (08:15→20:57)
[2017-05-07] MEDS: TRANDATE PO SCH ×2 (08:16→20:57)
[2017-05-07] MEDS: LIPITOR PO SCH (08:16)
[2017-05-07] MEDS: ASPIRIN PO SCH (08:16)
[2017-05-07] MEDS: NORCO-10 PO PRN (08:27)
--- NOTE | 2017-05-07 09:22 | Diag Imaging Result Doc PS360 ---
EXAM: CHEST-1 VIEW HISTORY: sob TECHNIQUE: Portable upright AP COMPARISON: 05/06/2017 FINDINGS: Interval worsening in the pulmonary edema. Interval worsening in the infiltrates or atelectasis in the left base. Cardiomegaly remains. No pleural effusions identified. There are sternal wires. IMPRESSION: Interval worsening compared to the prior study. Electronically signed by Fidel Carter 05/07/2017 9:20 AM
[2017-05-07] MEDS ORDERED: LASIX IV ONE (14:40)
[2017-05-07] MEDS: HYZAAR 50/12.5 MG PO SCH (16:09)
[2017-05-07] MEDS: NS IV SCH (16:19)
[2017-05-07] MEDS: VITAMIN C IV SCH (16:19)
[2017-05-07] MEDS: AMBIEN PO SCH (20:57)
[2017-05-07] MEDS: STERILE WATER INJ. INJ PRN (22:38)
[2017-05-07] MEDS: GEODON IM PRN (22:39)
[2017-05-08] MEDS: MAXIPIME 1 GM/NS 1 GM/50 ML IVPB IV SCH (04:11)
[2017-05-08 04:13] LABS: MANUAL DIFF NEEDED? NO
[2017-05-08 04:18] LABS: BASO% 0.2 % (0.0-0.8); EOS# 0.08 X1000 (0.0-0.7); EOS% 1.2 % (0.0-10.0); HEMATOCRIT 27.4 % (42.0-52.0); HEMOGLOBIN 8.7 g/dL (14.0-18.0); IMM GRAN# 0.06 X1000 (0.0-0.04); IMM GRAN% 0.9 % (0.0-0.5); LYMPH# 0.46 X1000 (1.2-3.4); LYMPH% 7.2 % (20.5-51.1); MCH 27.7 PG (27-31); MCHC 31.8 g/dL (33-37); MCV 87.3 FL (81-99); MONO# 0.95 X1000 (0.11-0.59); MONO% 14.8 % (1.7-9.3); MPV 10.5 FL (7.4-10.4); NEUT% 75.7 % (42.2-75.2); PLT 181 X1000 (130-400); RBC 3.14 XMIL (4.7-6.1)
[2017-05-08 04:32] LABS: ALLEN TEST YES; BE 5.1 mmoll (-3.0-3.0); BLOOD TYPE ARTERIAL; DRAW SITE R RADIAL; MODALITY CANNULA; O2(CT) 13.5 mL/dL (15.0-23.0); PO2(98.6) 79 mmHg (60-100); SAMPLE BLOOD; SAO2 100.5 % (95.0-100.0); THB 9.9 g/dL (11.5-17.4); pH(98.6) 7.36 (7.35-7.45)
[2017-05-08 04:33] LABS: PCO2(98.6) 56 mmHg (35-45)
[2017-05-08 04:33] LABS: ALBUMIN 3.1 g/dL (3.5-5.0); CALCIUM 9.3 mg/dL (8.8-10.2); MAGNESIUM 2.2 mg/dL (1.5-2.7); POTASSIUM 3.2 mmol/L (3.5-5.1); TOTAL BILIRUBIN 0.97 mg/dL (0.20-1.00); TOTAL PROTEIN 7.4 g/dL (6.3-8.3)
[2017-05-08] MEDS: HUMALOG SUBQ SCH ×4 (07:18→20:16)
[2017-05-08] MEDS: FLOMAX PO SCH (09:05)
[2017-05-08] MEDS: CENTRUM SILVER PO SCH (09:06)
[2017-05-08] MEDS: ASPIRIN PO SCH (09:06)
[2017-05-08] MEDS: RANEXA PO SCH ×2 (09:06→20:16)
[2017-05-08] MEDS: HYZAAR 50/12.5 MG PO SCH (09:06)
[2017-05-08] MEDS: FOLIC ACID PO SCH (09:06)
[2017-05-08] MEDS: LIPITOR PO SCH (09:06)
[2017-05-08] MEDS: VITAMIN B-12 PO SCH ×2 (09:06→20:16)
[2017-05-08] MEDS: ELIQUIS PO SCH ×2 (09:06→20:15)
[2017-05-08] MEDS: PRILOSEC PO SCH (09:06)
[2017-05-08] MEDS: TRANDATE PO SCH ×2 (09:28→20:15)
--- NOTE | 2017-05-08 11:24 | PROGRESS NOTE ---
DATE: 05/08/2017 Vital signs. Temperature 98.1 degrees, heart rate 110, respirations 16, blood pressure 155/101. O2 saturation 90% on 3 L nasal oxygen. LABORATORY: Hemoglobin 8.7, hematocrit 27.4, white blood count 6400 with 76% neutrophils. Sodium 145, potassium 3.2, BUN 36, creatinine 1.5, glucose 142. Calcium 9.3. Liver functions normal. ProBNP 9414. Albumin low at 3.1. Ammonia 34. General: Patient is slowly improving. Renal function is better with decrease in BUN and creatinine. He continues to be afebrile. He is on cefepime for sepsis and urinary tract infection. Blood cultures and urine cultures grew E. coli. Patient has other chronic problems including coronary artery disease, and chronic back pain. There has also been agitation and multiple recent falls at home. He continues to be on [place] for pain and p.r.n. Ativan and Geodon. He will be restarted on p.o. liquids. If he continues to improve he may be transferred to the floor soon. cc: MD Sky De León MD
--- NOTE | 2017-05-08 13:29 | PROGRESS NOTE ---
DATE: 05/08/2017 SUBJECTIVE: He denies any complaints. OBJECTIVE: Vital Signs: Blood pressure 157/81, heart rate 78, respirations 16, afebrile. Intake 400 mL; output 5.9 L. General: On physical exam, no acute distress. Skin: Warm and dry. Eyes: Conjunctivae are pink. Neck: Neck veins are distended. Heart: Regular with a gallop. Lungs: Have equal breath sounds. No crackles. Abdomen: Soft, nontender. Bowel sounds are present. Extremities: Have 1+ edema. No clubbing or cyanosis. LABORATORY DATA: Sodium 145, potassium 3.2, chloride 104, bicarbonate 27, BUN 36, creatinine 1.5. IMPRESSION: Acute kidney injury overlying chronic kidney disease. His creatinine is back to his historical baseline. Electrolytes are acceptable and volume status is improving daily. As such, I will sign off. If I can be of further assistance, please do not hesitate to call. cc: MD Sky Lubin MD
[2017-05-08] MEDS: KLOR-CON PO SCH ×2 (13:44→17:34)
[2017-05-08] MEDS: APRESOLINE PO SCH ×2 (13:44→20:15)
--- NOTE | 2017-05-08 14:25 | PROGRESS NOTE ---
DATE: 05/08/2017 CHIEF COMPLAINT: Weakness, hypotension, irregular heartbeat. SUBJECTIVE: Mr. Dueñas is feeling much stronger now. Heart rate is better controlled. He is not having any pain. OBJECTIVE: Blood pressure is 157/81, temperature 97.3, pulse 78, respirations 16. He is awake and alert, follows commands. He has eaten all of his meals. HEENT is unremarkable. Chest: Relatively clear to auscultation and percussion. Heart sounds are irregularly irregular without gallop or murmur. Abdomen is obese, nontender. There is no hepatomegaly. Extremities showed no obvious swelling. Neurologic: He is awake and alert, follows commands. DIAGNOSTIC DATA: A chest x-ray done on 05/07/2017 shows worsening infiltrate. Laboratory work shows sodium is 145, potassium 3.2, BUN is 36, creatinine 1.5. His ProBNP went up to 9414. His hemoglobin is down to 8.7, white count is 6420. Blood gases showed pH of 7.36, pCO2 of 56, pO2 of 79, and that was on 3 L of oxygen per nasal cannula earlier this morning. IMPRESSION: 1. The patient presented with septicemia due to Escherichia coli which is resistant to ampicillin and ampicillin sulbactam, sensitive to other antibiotics. 2. Atrial fibrillation with rapid response. This is chronic, with tachycardia probably related to septicemia. 3. Coronary artery disease, previous coronary bypass surgery. Elevation of CK and troponins, possibly demand related coronary ischemia. 4. The patient has abnormal repolarization noted on his 12-lead EKG from 05/07/2017. 5. Obesity. RECOMMENDATIONS: The patient will continue antibiotics. We will continue present medical therapy as we are doing. We may want to do a followup chest x-ray in the next day or two, and further intervention will depend on his clinical course. The patient seems to be improving. cc: MD Sky Moss MD
[2017-05-08] MEDS: NS IV SCH (16:15)
[2017-05-08] MEDS: VITAMIN C IV SCH (16:15)
[2017-05-08] MEDS: AMBIEN PO SCH (20:15)
[2017-05-08] MEDS: NORCO-10 PO PRN (22:47)
[2017-05-09] MEDS: ATIVAN IV PRN ×5 (02:40→23:59)
[2017-05-09] MEDS: GEODON IM PRN ×3 (03:17→20:00)
[2017-05-09] MEDS: MAXIPIME 1 GM/NS 1 GM/50 ML IVPB IV SCH (04:30)
[2017-05-09] MEDS: APRESOLINE PO SCH ×3 (04:36→21:26)
[2017-05-09] MEDS: HUMALOG SUBQ SCH ×4 (06:47→21:27)
--- NOTE | 2017-05-09 08:55 | PROGRESS NOTE ---
DATE: 05/09/2017 VITAL SIGNS: Stable with temperature of 98.8 degrees, heart rate 90, respirations 17, blood pressure 174/97, O2 saturation on 4 L nasal oxygen of 94%. LABORATORY: Hemoglobin 8.7, hematocrit 27.4, white blood count 6400 with 75% neutrophils. Sugar 167. PHYSICAL EXAMINATION: General: Patient is confused and trying to get out of bed this morning. He is agitated. Lungs: Are fairly clear. Abdomen: Soft. ASSESSMENT AND PLAN: He is not wanting to eat but just wanting to leave the hospital. He has as needed medications ordered for agitation. Physical therapy is consulted to assist range of motion. He will be assisted to get up in a chair twice a day. Transfer to the floor will be considered if his agitation is controlled. cc: MD Sky De León MD
[2017-05-09] MEDS ORDERED: LASIX IV SCH (09:00)
[2017-05-09] MEDS: CENTRUM SILVER PO SCH (09:01)
[2017-05-09] MEDS: RANEXA PO SCH ×2 (09:01→21:26)
[2017-05-09] MEDS: VITAMIN B-12 PO SCH ×2 (09:01→21:26)
[2017-05-09] MEDS: PRILOSEC PO SCH (09:01)
[2017-05-09] MEDS: KLOR-CON PO SCH ×3 (09:01→16:32)
[2017-05-09] MEDS: ELIQUIS PO SCH ×2 (09:01→21:26)
[2017-05-09] MEDS: FLOMAX PO SCH (09:01)
[2017-05-09] MEDS: ASPIRIN PO SCH (09:02)
[2017-05-09] MEDS: LIPITOR PO SCH (09:02)
[2017-05-09] MEDS: HYZAAR 50/12.5 MG PO SCH (09:02)
[2017-05-09] MEDS: FOLIC ACID PO SCH (09:02)
[2017-05-09] MEDS: TRANDATE PO SCH ×2 (09:02→21:26)
[2017-05-09] MEDS: STERILE WATER INJ. INJ PRN (09:19)
[2017-05-09] MEDS ORDERED: LABETALOL IV ONE (11:44)
--- NOTE | 2017-05-09 12:13 | PROGRESS NOTE ---
DATE: 05/09/2017 CHIEF COMPLAINT: Irregular heartbeat, shortness of breath. SUBJECTIVE: Mr. Dueñas is confused today. According to his nurse, he has required Ativan and Geodon. The patient is not oriented to place or time and drifts into sleep. He does not seem to be in any pain. OBJECTIVE: His blood pressure is 169/99, pulse 110, respirations 25. The patient is confused. He does not sustain conversation. HEENT: No obvious abnormalities. Chest: Diminished breath sounds at bases. Heart sounds are irregularly irregular, rapid. Abdomen is nontender. Extremities showed no edema. He has amputation of right arm. Neurologic: Exam cannot be performed, he is confused. DIAGNOSTIC DATA: His laboratory has not been done today. Something has been ordered for tomorrow. IMPRESSION: 1. The patient is with atrial fibrillation, chronic, persistent. 2. Possible [id number] myocardial infarction. 3. Coronary artery disease, previous bypass. 4. Diabetes mellitus. 5. Urinary tract infection with septicemia and E. coli with metabolic encephalopathy at this time. RECOMMENDATIONS: I will request STAT blood work. We will make appropriate adjustments. Further advice will be forthcoming. cc: MD Sky Moss MD
[2017-05-09 12:54] LABS: CALCIUM 9.2 mg/dL (8.8-10.2); MAGNESIUM 1.9 mg/dL (1.5-2.7); POTASSIUM 3.1 mmol/L (3.5-5.1)
[2017-05-09 12:58] LABS: BASO% 2.8 % (0.0-0.8); EOS# 0.23 X1000 (0.0-0.7); EOS% 2.8 % (0.0-10.0); HEMATOCRIT 28.1 % (42.0-52.0); HEMOGLOBIN 9.3 g/dL (14.0-18.0); IMM GRAN# 0.14 X1000 (0.0-0.04); IMM GRAN% 1.7 % (0.0-0.5); LYMPH# 0.86 X1000 (1.2-3.4); LYMPH% 10.3 % (20.5-51.1); MANUAL DIFF NEEDED? YES; MCH 28.3 PG (27-31); MCHC 33.1 g/dL (33-37); MCV 85.4 FL (81-99); MONO# 0.96 X1000 (0.11-0.59); MONO% 11.5 % (1.7-9.3); MPV 10.4 FL (7.4-10.4); NEUT% 70.9 % (42.2-75.2); PLT 244 X1000 (130-400); RBC 3.29 XMIL (4.7-6.1)
[2017-05-09 13:14] LABS: EOS 3 % (1-10); LYMPHS 10 % (21-51); MONO 10 % (1-9)
[2017-05-09] MEDS ORDERED: POTASSIUM CHLORIDE 20% LIQUID PO ONE (13:19)
[2017-05-09] MEDS: NORCO-10 PO PRN (16:32)
[2017-05-09] MEDS: NS IV SCH (16:50)
[2017-05-09] MEDS: VITAMIN C IV SCH (16:50)
[2017-05-09] MEDS ORDERED: DILAUDID IV SCH (17:00)
[2017-05-09] MEDS ORDERED: LABETALOL IV STA (17:09)
[2017-05-09] MEDS: NITROGLYCERIN TOP SCH ×2 (17:25→23:31)
[2017-05-09] MEDS: LABETALOL IV SCH ×2 (17:46→18:05)
[2017-05-09] MEDS: DILAUDID IV PRN (19:45)
[2017-05-09] MEDS: NORVASC PO SCH (21:26)
[2017-05-09] MEDS: AMBIEN PO SCH (21:26)
[2017-05-10] MEDS: DILAUDID IV PRN
[2017-05-10] MEDS: NITROGLYCERIN TOP SCH ×4 (04:55→23:05)
[2017-05-10] MEDS: MAXIPIME 1 GM/NS 1 GM/50 ML IVPB IV SCH (04:55)
[2017-05-10] MEDS: APRESOLINE PO SCH ×3 (04:57→20:28)
[2017-05-10 05:28] LABS: BASO% 2.2 % (0.0-0.8); EOS# 0.22 X1000 (0.0-0.7); EOS% 2.2 % (0.0-10.0); HEMATOCRIT 30.5 % (42.0-52.0); HEMOGLOBIN 9.7 g/dL (14.0-18.0); IMM GRAN# 0.37 X1000 (0.0-0.04); IMM GRAN% 3.7 % (0.0-0.5); LYMPH# 1.07 X1000 (1.2-3.4); LYMPH% 10.8 % (20.5-51.1); MANUAL DIFF NEEDED? YES; MCH 27.9 PG (27-31); MCHC 31.8 g/dL (33-37); MCV 87.6 FL (81-99); MONO# 1.12 X1000 (0.11-0.59); MONO% 11.3 % (1.7-9.3); MPV 9.6 FL (7.4-10.4); NEUT% 69.8 % (42.2-75.2); PLT 281 X1000 (130-400); RBC 3.48 XMIL (4.7-6.1)
--- NOTE | 2017-05-10 05:31 | EKG Report ---
Test Performed on : 05/09/2017 07:00:00 AM Test Reason : non ST PA/ASHD/ sepsis Blood Pressure : / mmHG Vent. Rate : 117 BPM Atrial Rate : 127 BPM P-R Int : 000 ms QRS Dur : 096 ms QT Int : 334 ms P-R-T Axes : 000 031 175 degrees QTc Int : 465 ms Atrial fibrillation. with rapid ventricular response. ST \T\ T wave abnormality, consider lateral ischemia Abnormal ECG When compared with ECG of 07-MAY-2017 05:46, (Unconfirmed) No significant change was found Confirmed by Higinio EM, Mani Arellano ([id number]) on 05/11/2017 2:15:24 PM
[2017-05-10 05:59] LABS: CALCIUM 9.5 mg/dL (8.8-10.2); POTASSIUM 3.9 mmol/L (3.5-5.1)
[2017-05-10] MEDS: HUMALOG SUBQ SCH ×4 (06:46→20:29)
[2017-05-10 06:51] LABS: BANDS 2 % (0-1); LYMPHS 12 % (21-51); MONO 10 % (1-9)
--- NOTE | 2017-05-10 07:34 | EKG Report ---
Test Performed on : 05/10/2017 06:26:27 AM Test Reason : atrial fibrillation/ND Blood Pressure : / mmHG Vent. Rate : 111 BPM Atrial Rate : 136 BPM P-R Int : 000 ms QRS Dur : 092 ms QT Int : 356 ms P-R-T Axes : 000 026 188 degrees QTc Int : 484 ms Atrial fibrillation. with rapid ventricular response. ST \T\ T wave abnormality, consider lateral ischemia Abnormal ECG When compared with ECG of 09-MAY-2017 07:00, (Unconfirmed) Nonspecific T wave abnormality has replaced inverted T waves in Inferior leads Confirmed by Higinio EM, Mani Arellano ([id number]) on 05/11/2017 2:15:54 PM
[2017-05-10] MEDS ORDERED: MAGNESIUM SULFATE 2 GM/S.W.I. 2 GM/50 ML IVPB IV ONE (07:38)
--- NOTE | 2017-05-10 08:08 | PROGRESS NOTE ---
DATE: 05/10/2017 SUBJECTIVE: The patient was admitted on 05/06/2017. Overnight, the patient continues to have increased agitation, minimally responsive to Ativan and Dilaudid. Overnight complaining of low back pain and responding minimally to Geodon 20 mg x1. OBJECTIVE: Vital Signs: Temperature 98 degrees, pulse is 108, blood pressure 165/118. O2 saturation 96% on 40 on a Ventimask at 40% FiO2. I Os: Demonstrating good urine output. The patient had 1 bowel movement yesterday. Is eating approximately 75% of meals. PHYSICAL EXAMINATION: General: The patient is agitated, large, male, mild to moderate distress. Ventimask in place. Cardiovascular: Tachycardic with a regular rhythm. Lungs: Showed diffuse decreased breath sounds and mild rhonchi at the left lateral base. Abdomen: Protuberant. Bowel sounds are scant, but audible. Lower Extremities: No cyanosis, clubbing, or edema. Right hand is surgically absent. Neurological: Cranial nerves 2-12 grossly intact. The patient is alert and oriented. Pupils are equal, round, reactive to light. There is some mild confusion and some short-term memory delay being noted. LABS: WBC is 9.94, with an hemoglobin and hematocrit of 9.7 and 30.5. Platelets of 281,000. Neutrophils down from 91% to 69%. The patient is still noted to have increased segs at 76, lymphocytes at 12, and 2 bands. Blood gas on 05/08 showed a pCO2 of 56, sodium elevated at 149, with a potassium of 3.9, creatinine down to 1.3. Glucose ranging from 142-168. Calcium and magnesium have been within normal limits. Patient continues to have troponin, but it is coming down. B-type natriuretic peptide last checked 05/08/2017 was 9414. Digoxin level 0.3. Microbiology: Urine culture came back positive Escherichia coli, resistant to ampicillin. Blood culture also Escherichia coli, resistant to Bactrim and ampicillin. ASSESSMENT AND PLAN: 1. A 71-year-old male with history of atrial fibrillation, chronic, persistent. 2. Questionable ST elevation myocardial infarction. 3. Urosepsis, Escherichia coli bacteremia. 4. Diabetes mellitus. 5. Respiratory failure. 6. Metabolic encephalopathy. 7. Hypernatremia. PLAN: Will continue the patient on antibiotics. Continue further workup of the acute nature of the further myocardial infarction that is under evaluation. Continue the aggressive respiratory therapy and maintain electrolyte normality by decreasing the amount of Lasix the patient is using slowly for the hypernatremia. The patient is still under a guarded prognosis. Will continue to follow daily. cc: Sky Flores MD
[2017-05-10] MEDS: RANEXA PO SCH ×2 (08:30→20:28)
[2017-05-10] MEDS: CENTRUM SILVER PO SCH (08:30)
[2017-05-10] MEDS: TRANDATE PO SCH ×4 (08:30→20:28)
[2017-05-10] MEDS: FLOMAX PO SCH (08:30)
[2017-05-10] MEDS: PRILOSEC PO SCH (08:30)
[2017-05-10] MEDS: VITAMIN B-12 PO SCH ×2 (08:30→20:28)
[2017-05-10] MEDS: HYZAAR 50/12.5 MG PO SCH (08:31)
[2017-05-10] MEDS: NORVASC PO SCH ×2 (08:31→20:28)
[2017-05-10] MEDS: LIPITOR PO SCH (08:31)
[2017-05-10] MEDS: FOLIC ACID PO SCH (08:31)
[2017-05-10] MEDS: ELIQUIS PO SCH ×2 (08:31→20:28)
[2017-05-10] MEDS: ALDACTONE PO SCH (08:31)
[2017-05-10] MEDS: ASPIRIN PO SCH (08:31)
[2017-05-10] MEDS ORDERED: ATIVAN IV PRN (08:54)
[2017-05-10] MEDS: NORCO-10 PO PRN (13:33)
[2017-05-10] MEDS: AMBIEN PO SCH (20:28)
[2017-05-11] MEDS: NORCO-10 PO PRN ×2 (01:21→22:45)
[2017-05-11] MEDS: APRESOLINE PO SCH ×3 (04:28→20:11)
[2017-05-11] MEDS: NITROGLYCERIN TOP SCH ×4 (04:29→22:45)
[2017-05-11] MEDS: MAXIPIME 1 GM/NS 1 GM/50 ML IVPB IV SCH (04:29)
[2017-05-11 04:31] LABS: ALLEN TEST YES; BE 9.9 mmoll (-3.0-3.0); BLOOD TYPE ARTERIAL; DRAW SITE R RADIAL; METHB 0.9 % (0.0-1.5); O2(CT) 12.3 mL/dL (15.0-23.0); PCO2(98.6) 40 mmHg (35-45); PO2(98.6) 75 mmHg (60-100); SAMPLE BLOOD; SAO2 97.8 % (95.0-100.0); THB 9.2 g/dL (11.5-17.4); pH(98.6) 7.53 (7.35-7.45)
[2017-05-11 04:32] LABS: MODALITY ROOM AIR
[2017-05-11 04:36] LABS: BASO% 0.6 % (0.0-0.8); EOS# 0.02 X1000 (0.0-0.7); EOS% 0.1 % (0.0-10.0); HEMATOCRIT 27.8 % (42.0-52.0); HEMOGLOBIN 8.9 g/dL (14.0-18.0); IMM GRAN# 0.36 X1000 (0.0-0.04); IMM GRAN% 2.5 % (0.0-0.5); LYMPH# 1.01 X1000 (1.2-3.4); LYMPH% 6.9 % (20.5-51.1); MANUAL DIFF NEEDED? YES; MCH 27.7 PG (27-31); MCV 86.6 FL (81-99); MONO% 9.5 % (1.7-9.3); MPV 9.9 FL (7.4-10.4); NEUT% 80.4 % (42.2-75.2); PLT 265 X1000 (130-400); RBC 3.21 XMIL (4.7-6.1)
[2017-05-11 05:25] LABS: ALBUMIN 2.8 g/dL (3.5-5.0); CALCIUM 9.3 mg/dL (8.8-10.2); MAGNESIUM 2.1 mg/dL (1.5-2.7); POTASSIUM 3.3 mmol/L (3.5-5.1); TOTAL BILIRUBIN 0.81 mg/dL (0.20-1.00); TOTAL PROTEIN 7.2 g/dL (6.3-8.3)
[2017-05-11] MEDS: HUMALOG SUBQ SCH ×4 (06:02→20:11)
[2017-05-11 08:03] LABS: BANDS 5 % (0-1); LYMPHS 1 % (21-51); MONO 6 % (1-9)
[2017-05-11 08:04] LABS: POLYCHROM OCCASIONAL
[2017-05-11] MEDS: HYZAAR 50/12.5 MG PO SCH (08:39)
[2017-05-11] MEDS: PRILOSEC PO SCH (08:39)
[2017-05-11] MEDS: ALDACTONE PO SCH (08:40)
[2017-05-11] MEDS: TRANDATE PO SCH ×3 (08:40→17:01)
[2017-05-11] MEDS: FLOMAX PO SCH (08:40)
[2017-05-11] MEDS: RANEXA PO SCH ×2 (08:40→20:11)
[2017-05-11] MEDS: CENTRUM SILVER PO SCH (08:40)
[2017-05-11] MEDS: LIPITOR PO SCH (08:40)
[2017-05-11] MEDS: VITAMIN B-12 PO SCH ×2 (08:41→20:11)
[2017-05-11] MEDS: NORVASC PO SCH ×2 (08:41→20:11)
[2017-05-11] MEDS: ELIQUIS PO SCH ×2 (08:41→20:11)
[2017-05-11] MEDS: FOLIC ACID PO SCH (08:41)
[2017-05-11] MEDS: ASPIRIN PO SCH (08:41)
[2017-05-11] MEDS ORDERED: KLOR-CON PO ONE (12:48)
[2017-05-11] MEDS ORDERED: MAGNESIUM SULFATE 2 GM/S.W.I. 2 GM/50 ML IVPB IV ONE (12:48)
--- NOTE | 2017-05-11 13:31 | PROGRESS NOTE ---
DATE: 05/11/2017 SUBJECTIVE: Overnight, the patient remained in the ICU. Much more calm. Still with confusion regarding location and slowed speech, but appropriately reorienting, per my exam today. No requirement for the Geodon overnight. Rate controlled with atrial fibrillation noted on the monitor. OBJECTIVE: Vital Signs: Temperature 97.0 degrees, pulse of 100, respirations 14, blood pressure 177/105, and O2 saturation 95% on room air now with no overt complaints. General: Morbidly obese male in no acute distress. No accessory muscle used for respiration. Cardiovascular: Tachycardic with irregularly irregular rhythm. No suspicious murmurs noted. Chest: Clear to auscultation anteriorly, with occasional rhonchi that clears with cough. Abdomen: Protuberant. Bowel sounds are scant. Lower Extremities: No cyanosis, clubbing, or edema noted. Patient is sensitive above expected examination of the lower extremities, particular in the soles of the feet. Neurological: Cranial nerves 2-12 are grossly intact. Patient is showing diffuse slowing with scarcity of thought and psychomotor retardation. No aggression noted on today's exam. LABORATORIES: WBC trended up to 14.66, hemoglobin and hematocrit of 8.9 and 27.8, respectively, and platelets 265,000. Neutrophils with a slight spike today from 69.8 to 80.4. Bands up from 2 to 5. Occasional eosinophils noted. ABG shows pH of 7.5 with a pCO2 of 40 and a PO2 of 75. Lactate 0.91 on room air. Chemistry shows sodium 145, potassium 3.3, BUN of 24, creatinine of 1.2, glucose ranging from 144 to 170. BNP 10,788 with albumin low at 2.8. IMAGING: The patient's last chest x-ray was 05/07/2017. Cardiology with no overt followup noted today. ASSESSMENT AND PLAN: A 71-year-old male with: 1. Atrial fibrillation, chronic, persistent, rate controlled. 2. ST-elevation myocardial infarction. 3. Urosepsis with Escherichia coli bacteremia. 4. Persistent leukocytosis despite antibiotic treatment. 5. Diabetes mellitus, type 2, with hyperglycemia. 6. Respiratory failure. Resolved. 7. Metabolic encephalopathy. 8. Hypernatremia. Resolved. 9. Hypokalemia. PLAN: Broad spectrum IV antibiotics. Continue the respiratory therapy that we are currently using and decrease the sedative medications to avoid further worsening. Patient will utilize aggressive physical therapy to maintain both ambulation and balance, and electrolytes will be normalized. We will also continue to monitor the blood pressure, which is normal at this time, slowly increasing the medications as necessary with the end result of making patient normotensive and able to stand and walk on own prior to being discharged to outside of ICU. Continue the followup of both Nephrology and Cardiology, with any additional consults as needed. Patient now has an improved prognosis and we will continue to watch to step-down as necessary. cc: Sky Flores MD
[2017-05-11] MEDS: RESTORIL PO SCH (20:11)
[2017-05-12] MEDS: MAXIPIME 1 GM/NS 1 GM/50 ML IVPB IV SCH (03:49)
[2017-05-12 04:22] LABS: ALLEN TEST YES; BE 8.1 mmoll (-3.0-3.0); BLOOD TYPE ARTERIAL; DRAW SITE R RADIAL; O2(CT) 15.4 mL/dL (15.0-23.0); PO2(98.6) 91 mmHg (60-100); SAMPLE BLOOD; SAO2 100.8 % (95.0-100.0); THB 11.2 g/dL (11.5-17.4); pH(98.6) 7.41 (7.35-7.45)
[2017-05-12 04:23] LABS: MODALITY CANNULA; PCO2(98.6) 54 mmHg (35-45)
[2017-05-12 04:30] LABS: MANUAL DIFF NEEDED? NO
[2017-05-12 04:37] LABS: BASO% 0.3 % (0.0-0.8); EOS# 0.17 X1000 (0.0-0.7); EOS% 1.3 % (0.0-10.0); HEMATOCRIT 25.6 % (42.0-52.0); HEMOGLOBIN 8.2 g/dL (14.0-18.0); IMM GRAN# 0.37 X1000 (0.0-0.04); IMM GRAN% 2.8 % (0.0-0.5); LYMPH# 0.96 X1000 (1.2-3.4); LYMPH% 7.3 % (20.5-51.1); MCH 27.9 PG (27-31); MCV 87.1 FL (81-99); MONO# 1.07 X1000 (0.11-0.59); MONO% 8.1 % (1.7-9.3); NEUT% 80.2 % (42.2-75.2); PLT 264 X1000 (130-400); RBC 2.94 XMIL (4.7-6.1)
[2017-05-12] MEDS: NITROGLYCERIN TOP SCH ×3 (05:02→17:19)
[2017-05-12] MEDS: APRESOLINE PO SCH ×3 (05:02→21:17)
[2017-05-12 05:08] LABS: AGAP 11; ALBUMIN 2.6 g/dL (3.5-5.0); ALKALINE PHOSPHATASE 72 U/L (32-122); BUN 24 mg/dL (8-22); CALCIUM 9.1 mg/dL (8.8-10.2); CHLORIDE 102 mmol/L (98-107); COSMO 289; GOT 15 U/L (10-34); GPT 16 U/L (10-44); MAGNESIUM 2.4 mg/dL (1.5-2.7); POTASSIUM 3.5 mmol/L (3.5-5.1); SODIUM 142 mmol/L (136-145); TCO2 29 mmol/L (25-35); TOTAL BILIRUBIN 0.65 mg/dL (0.20-1.00); TOTAL PROTEIN 7.1 g/dL (6.3-8.3)
[2017-05-12] MEDS: NORCO-10 PO PRN ×2 (05:44→20:05)
[2017-05-12] MEDS: HUMALOG SUBQ SCH ×3 (06:08→15:26)
--- NOTE | 2017-05-12 06:15 | Diag Imaging Result Doc PS360 ---
EXAM: CHEST-1 VIEW HISTORY: volume overload TECHNIQUE: Portable AP COMPARISON: 05/07/2017 FINDINGS: Sternal wires are present. Heart is enlarged. The vessels aren't distended. No pleural effusions identified. No consolidation. Interval clearing of the left basilar infiltrates. IMPRESSION: Cardiomegaly with pulmonary edema. Electronically signed by Fidel Carter 05/12/2017 6:13 AM
[2017-05-12] MEDS ORDERED: LASIX IV SCH (06:45)
[2017-05-12] MEDS: DILAUDID IV PRN ×2 (07:20→20:25)
--- NOTE | 2017-05-12 08:35 | PROGRESS NOTE ---
DATE: 05/12/2017 PRIMARY CARE PHYSICIAN: Sky Flores MD. FIBER OPTIC SPLICER: Rey Brown MD. STATE WILDLIFE OFFICER: Igor Fernandes MD. SUBJECTIVE: Overnight, the patient had an excellent night, resting well on the new medication of temazepam with no need for any additional medications. The patient awoke this a.m. with increased cognition and mental clarity over prior exams. PHYSICAL EXAMINATION: Vital Signs: Patient is afebrile, with a pulse of 69, respirations 18, blood pressure 135/78, O2 saturation 96% on 2 L nasal cannula. 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 No acute distress. Sleeping well with nasal cannula in place. No apparent rhonchi noted. No increased work of breathing. CV: Irregular rhythm with a regular rate. No murmurs, gallops, or rubs. Lungs: Clear to auscultation anteriorly. Extremities: No cyanosis, clubbing, or edema. Abdomen: Soft, protuberant. Bowel sounds are noted x4 quadrants. No abdominal tenderness. No guarding. Neurological: Cranial nerves 2-12 are grossly intact. Psychologic: The patient's mentation has improved. There is more clarity. The patient is alert and oriented x3. LABS: WBC 13.17, with a hemoglobin and hematocrit of 8.2 and 25.2, platelet count of 264,000, neutrophils down from 80.4 to 80.2. ABG shows slight hypercarbia at 54, otherwise improved over prior exam. Lactate at 0.6. Chemistry shows a BUN of 24, with a creatinine at baseline of 1, glucose of 140-170. ProBNP of 6224. With an albumin level at 2.6. Chest x-ray performed 05/12/2017 shows no left pleural effusion. Stable cardiomegaly. ASSESSMENT: Mr. Dueñas is a 71-year-old male with: 1. Atrial fibrillation, chronic, persistent, rate controlled. 2. ST-elevation myocardial infarction. 3. Urosepsis with E. coli bacteremia. 4. Anemia of chronic disease. 5. Diabetes mellitus type 2. 6. Hypercarbic respiratory failure, improved. 7. Metabolic encephalopathy, improving. PLAN: The patient will continue broad-spectrum antibiotics. We will transfuse 2 units of blood secondary to patient's cardiac dysfunction. Status post the transfusion, we will be able to send the patient to the floor, transfer him out of ICU, and continue to measure and change blood pressure medicines up as appropriate for home blood pressure medication regimen. We will continue to monitor on telemetry and continue to utilize the specialists that had been consulted as available. The patient's pain medications will be slightly spread out to avoid oversedation. We will advise the patient to increase ambulation. The patient will be given a 40 mg IV dose of Lasix status post blood transfusion. We will check hemoglobin and hematocrit along with ABG in the a.m. cc: Sky Flores MD
[2017-05-12] MEDS: LIPITOR PO SCH (09:00)
[2017-05-12] MEDS: ASPIRIN PO SCH (09:07)
[2017-05-12] MEDS: FLOMAX PO SCH (09:08)
[2017-05-12] MEDS: VITAMIN B-12 PO SCH ×2 (09:08→21:17)
[2017-05-12] MEDS: HYZAAR 50/12.5 MG PO SCH (09:08)
[2017-05-12] MEDS: CENTRUM SILVER PO SCH (09:08)
[2017-05-12] MEDS: TRANDATE PO SCH ×3 (09:08→17:19)
[2017-05-12] MEDS: PRILOSEC PO SCH (09:08)
[2017-05-12] MEDS: NORVASC PO SCH ×2 (09:09→21:17)
[2017-05-12] MEDS: ALDACTONE PO SCH (09:09)
[2017-05-12] MEDS: ELIQUIS PO SCH ×2 (09:09→21:17)
[2017-05-12] MEDS: FOLIC ACID PO SCH (09:09)
[2017-05-12] MEDS: RANEXA PO SCH ×2 (09:09→21:17)
[2017-05-12] MEDS ORDERED: NS 250 ML ONE (10:03)
[2017-05-12] MEDS: MUCOMYST 20% INH SCH ×2 (12:19→12:43)
[2017-05-12] MEDS: ATIVAN IV PRN (19:50)
[2017-05-12] MEDS: GEODON IM PRN (20:05)
[2017-05-12] MEDS: STERILE WATER INJ. INJ PRN (20:05)
[2017-05-12] MEDS: RESTORIL PO SCH (21:17)
[2017-05-13] MEDS: NORCO-10 PO PRN (01:45)
[2017-05-13] MEDS: ATIVAN IV PRN (01:46)
[2017-05-13] MEDS: GEODON IM PRN (01:46)
[2017-05-13] MEDS: NITROGLYCERIN TOP SCH ×5 (01:47→22:05)
[2017-05-13] MEDS: HUMALOG SUBQ SCH ×5 (01:50→22:10)
[2017-05-13 04:37] LABS: ALLEN TEST YES; BE 5.5 mmoll (-3.0-3.0); BLOOD TYPE ARTERIAL; DRAW SITE R RADIAL; METHB 0.9 % (0.0-1.5); O2(CT) 16.7 mL/dL (15.0-23.0); PO2(98.6) 96 mmHg (60-100); SAMPLE BLOOD; SAO2 98.6 % (95.0-100.0); THB 12.4 g/dL (11.5-17.4); pH(98.6) 7.31 (7.35-7.45)
[2017-05-13 04:38] LABS: MODALITY CANNULA; PCO2(98.6) 67 mmHg (35-45)
[2017-05-13] MEDS: MAXIPIME 1 GM/NS 1 GM/50 ML IVPB IV SCH (05:20)
[2017-05-13] MEDS: APRESOLINE PO SCH ×3 (05:20→22:08)
[2017-05-13 05:43] LABS: MANUAL DIFF NEEDED? NO
[2017-05-13 05:49] LABS: BASO% 0.2 % (0.0-0.8); HEMOGLOBIN 9.4 g/dL (14.0-18.0); LYMPH# 0.83 X1000 (1.2-3.4); LYMPH% 8.2 % (20.5-51.1); MCH 27.6 PG (27-31); MCHC 31.3 g/dL (33-37); MCV 88.2 FL (81-99); MONO# 0.72 X1000 (0.11-0.59); MONO% 7.1 % (1.7-9.3); MPV 10.5 FL (7.4-10.4); NEUT% 76.5 % (42.2-75.2); PLT 260 X1000 (130-400)
[2017-05-13 06:06] LABS: ALBUMIN 2.6 g/dL (3.5-5.0); CALCIUM 9.1 mg/dL (8.8-10.2); MAGNESIUM 2.2 mg/dL (1.5-2.7); POTASSIUM 3.8 mmol/L (3.5-5.1); TOTAL BILIRUBIN 0.57 mg/dL (0.20-1.00); TOTAL PROTEIN 7.2 g/dL (6.3-8.3)
[2017-05-13] MEDS: MUCOMYST 20% INH SCH ×2 (07:56→09:36)
[2017-05-13] MEDS ORDERED: GEODON IM PRN (07:57)
[2017-05-13] MEDS ORDERED: LASIX IV ONE (07:57)
--- NOTE | 2017-05-13 08:42 | PROGRESS NOTE ---
DATE: 05/13/2017 PRIMARY CARE PHYSICIAN: Sky Flores MD SUBJECTIVE: Overnight the patient responded well, required less medication than over the last couple of days. He was available for transfer to the floor, but room availability held him in the ICU. OBJECTIVE: Vital Signs: Temperature 98.7 degrees, pulse 88, blood pressure 112/65, and O2 saturation 93% on 2 to 3 liters nasal cannula. Input and Output: The input and output show -695 mL balance. Eating 50% of meal and now having normal bowel movements. General: The physical exam is primarily unchanged. The patient is a large male, no acute distress. Extremities: Right hand absent surgically. Abdomen: Protuberant. Bowel sounds are increased and active. No guarding, no tenderness. Cardiovascular: Irregular rhythm with a regular rate. No murmurs, gallops, rubs. Lungs: Show mildly decreased breath sounds at bilateral bases, otherwise within normal limits. Neurologic: Cranial nerves 2 through 12 are grossly intact. The patient is alert and oriented x3 with minimal noted confusion today. LABORATORY DATA: WBC 10.09 with an hemoglobin and hematocrit of 9.4 and 30, platelets of 260,000, neutrophils down from 80.2 to 75.6. ABG shows some slight worsening of the hypercarbia, so respiratory acidosis. Lactate is within normal limits. Metabolic panel shows excellent response. Phosphorus slightly down. BNP down to 3478. Albumin at 2.6. Chest x-ray on 05/12/2017 showed pulmonary edema, cardiomegaly. No pleural effusion noted. ASSESSMENT AND PLAN: We have a 71-year-old white male currently in the intensive care unit with: 1. Atrial fibrillation, chronic, persistent, rate controlled. 2. ST-elevation myocardial infarction. Cardiology following. No additional treatment now at this time. 3. Urosepsis with Escherichia coli bacteremia. Approaching end of antibiotic regimen requirement with no longer leukocytosis. 4. Anemia of chronic disease, status post 2 units of packed red blood cells. 5. Diabetes mellitus type 2. 6. Hypercarbic respiratory failure. Continue ABGs. We will give an additional dose of Lasix today and monitor renal function. Have the patient increase activity and transfer if possible. Continue O2 as necessary. 7. Metabolic encephalopathy, improving. 8. Electrolyte imbalance. We will replete. cc: Sky Flores MD
[2017-05-13] MEDS: FLOMAX PO SCH (09:15)
[2017-05-13] MEDS: LIPITOR PO SCH (09:15)
[2017-05-13] MEDS: NORVASC PO SCH ×2 (09:16→22:07)
[2017-05-13] MEDS: ELIQUIS PO SCH ×2 (09:16→22:08)
[2017-05-13] MEDS: VITAMIN B-12 PO SCH ×2 (09:16→22:06)
[2017-05-13] MEDS: ALDACTONE PO SCH (09:16)
[2017-05-13] MEDS: PRILOSEC PO SCH (09:16)
[2017-05-13] MEDS: TRANDATE PO SCH ×3 (09:16→17:21)
[2017-05-13] MEDS: FOLIC ACID PO SCH (09:16)
[2017-05-13] MEDS: RANEXA PO SCH ×2 (09:16→22:08)
[2017-05-13] MEDS: ASPIRIN PO SCH (09:16)
[2017-05-13] MEDS: CENTRUM SILVER PO SCH (09:16)
[2017-05-13] MEDS: NEUTRA-PHOS PO SCH ×4 (09:17→22:08)
[2017-05-13] MEDS: HYZAAR 50/12.5 MG PO SCH (09:17)
[2017-05-13] MEDS: DEPAKOTE SPRINKLE PO SCH ×2 (09:22→22:05)
[2017-05-13] MEDS: DUONEB (A & A) INH SCH ×3 (09:36→22:52)
[2017-05-13] MEDS: LASIX PO SCH (17:29)
[2017-05-13] MEDS: RESTORIL PO SCH (22:08)
[2017-05-14] MEDS: DUONEB (A & A) INH SCH ×4 (03:02→21:44)
[2017-05-14 04:28] LABS: ALLEN TEST YES; BLOOD TYPE ARTERIAL; DRAW SITE L RADIAL; O2(CT) 13.7 mL/dL (15.0-23.0); PCO2(98.6) 39 mmHg (35-45); PO2(98.6) 67 mmHg (60-100); SAMPLE BLOOD; SAO2 96.4 % (95.0-100.0); THB 10.4 g/dL (11.5-17.4); pH(98.6) 7.54 (7.35-7.45)
[2017-05-14 04:29] LABS: MODALITY CANNULA
[2017-05-14] MEDS: MAXIPIME 1 GM/NS 1 GM/50 ML IVPB IV SCH (05:00)
[2017-05-14] MEDS: ATIVAN IV PRN (05:19)
[2017-05-14] MEDS: NITROGLYCERIN TOP SCH ×5 (05:20→22:53)
[2017-05-14] MEDS: APRESOLINE PO SCH ×3 (05:20→22:53)
[2017-05-14] MEDS: HUMALOG SUBQ SCH ×4 (06:04→22:42)
[2017-05-14 07:18] LABS: MANUAL DIFF NEEDED? NO
[2017-05-14 07:27] LABS: BASO% 0.2 % (0.0-0.8); EOS# 0.17 X1000 (0.0-0.7); EOS% 1.4 % (0.0-10.0); HEMATOCRIT 31.4 % (42.0-52.0); IMM GRAN# 0.16 X1000 (0.0-0.04); IMM GRAN% 1.3 % (0.0-0.5); LYMPH# 0.72 X1000 (1.2-3.4); LYMPH% 5.8 % (20.5-51.1); MCH 27.6 PG (27-31); MCHC 31.8 g/dL (33-37); MCV 86.7 FL (81-99); MONO# 0.95 X1000 (0.11-0.59); MONO% 7.7 % (1.7-9.3); MPV 10.1 FL (7.4-10.4); NEUT% 83.6 % (42.2-75.2); PLT 328 X1000 (130-400); RBC 3.62 XMIL (4.7-6.1)
[2017-05-14 07:48] LABS: AGAP 14; ALBUMIN 2.8 g/dL (3.5-5.0); ALKALINE PHOSPHATASE 85 U/L (32-122); BUN 24 mg/dL (8-22); CHLORIDE 99 mmol/L (98-107); COSMO 291; GOT 21 U/L (10-34); GPT 21 U/L (10-44); MAGNESIUM 1.9 mg/dL (1.5-2.7); POTASSIUM 3.5 mmol/L (3.5-5.1); SODIUM 142 mmol/L (136-145); TCO2 29 mmol/L (25-35); TOTAL BILIRUBIN 0.81 mg/dL (0.20-1.00); TOTAL PROTEIN 7.9 g/dL (6.3-8.3)
[2017-05-14] MEDS ORDERED: LEXISCAN ONE (08:19)
[2017-05-14] MEDS ORDERED: ALBUMIN 25% IV ONE (09:22)
--- NOTE | 2017-05-14 10:00 | PROGRESS NOTE ---
DATE: 05/14/2017 PRIMARY CARE PHYSICIAN: 1. Dr. Sky Flores, family physician. 2. Dr. Monty Novak, cardiology. 3. Dr. Rey Brown, nephrology. SUBJECTIVE: Overnight patient was transferred from ICU to a standard bed on the fourth floor. No issues or concerns noted. The patient did well regarding transfer. Patient was started on Depakote and had a good response to that overnight. OBJECTIVE: Vital Signs: On physical exam, temperature 98.4 degrees, pulse 102, respirations 18, blood pressure 156/76, O2 saturation 93% on 2 L nasal cannula. I's and O's note about 1 L negative fluid balance. The patient is having bowel movements appropriately. General: Large male in no acute distress, much improved clarity in overall speech and function. CV: Irregularly irregular rate. No murmurs, gallops or rubs. Lungs: Decreased breath sounds at the bilateral bases, decreased rhonchi over this exam. Abdomen: Protuberant, soft. Bowel sounds positive. No guarding, no tenderness. Lower Extremities: No cyanosis, clubbing, edema. The patient has a right hand surgically absent just above the wrist. Neurologic: Cranial nerves 2-12 are grossly intact. LABS: The patient's labs this morning showed WBC of 12.39 with hemoglobin and hematocrit of 10 and 31 respectively, up from 9.4 and 30 respectively, platelets of 328, neutrophils from 76.5 to 83.6. ABG shows alkalosis at 7.53 with pCO2 now at 39 and a bicarb of 32.7. FiO2 of 28. Electrolytes are within normal limits. Patient has just a slight decrease in the albumin of 2.8, glucose ranging from approximately 140-166. BUN of 24 with a creatinine of 1.0. BNP down from 3470 to 3340. TSH within normal limits. Blood cultures: No new cultures at this time. ASSESSMENT/PLAN: This is a 71-year-old male well known to myself currently on the general medical floor with: 1. Atrial fibrillation. Chronic persistent rate controlled. 2. ST elevation myocardial infarction. Cardiology evaluating with Lexiscan stress test this morning. We will follow the response to therapy and any additional treatments. 3. Urosepsis with Escherichia coli bacteremia. Patient is on day #7 of antibiotic treatment. White blood cell counts have not come down to normal. Consideration of change regarding the antibiotic regimen. Will consult infectious disease regarding any questions or concerns for outpatient treatment. 4. Diabetes mellitus type 2, well controlled. 5. Hypercarbic respiratory failure. Arterial blood gases are still important daily. Lasix was given yesterday with good function. Renal function still with good response and renal function still within normal limits. I advised increased activity and will give albumin times one. 6. Metabolic encephalopathy, improving. 7. Electrolyte imbalance, repleted. We will continue to follow daily. Likely discharge home if stable within the next 48-72 hours. cc: Sky Flores MD
[2017-05-14] MEDS: MUCOMYST 20% INH SCH (10:49)
[2017-05-14] MEDS: VITAMIN B-12 PO SCH ×2 (12:18→22:52)
[2017-05-14] MEDS: ALDACTONE PO SCH (12:22)
[2017-05-14] MEDS: ASPIRIN PO SCH (12:23)
[2017-05-14] MEDS: RANEXA PO SCH ×2 (12:25→22:52)
[2017-05-14] MEDS: LASIX PO SCH (12:26)
[2017-05-14] MEDS: DEPAKOTE SPRINKLE PO SCH ×2 (12:33→22:52)
[2017-05-14] MEDS: CENTRUM SILVER PO SCH (12:33)
[2017-05-14] MEDS: COZAAR PO SCH (12:34)
[2017-05-14] MEDS: ELIQUIS PO SCH ×2 (12:37→22:52)
[2017-05-14] MEDS: FOLIC ACID PO SCH (12:38)
[2017-05-14] MEDS: LIPITOR PO SCH (12:39)
[2017-05-14] MEDS: NORVASC PO SCH ×2 (12:39→22:53)
--- NOTE | 2017-05-14 14:03 | Diag Imaging Result Doc PS360 ---
EXAM: MRI BRAIN W/O CONTRAST HISTORY: Persistant Encephalopathy TECHNIQUE: MRI of the brain; T1,T2,, gradient echo axial, post gadolinium-enhanced FSPGR 3-D axial,DWI and FLAIR axial, T1 sagittal COMMENT: there is encephalomalacia and increased T2-weighted signal intensity in the periatrial white matter bilaterally. There is considerable motion artifact in the post gadolinium-enhanced T1-weighted images however there is no evidence of abnormal gadolinium enhancement. There is no evidence of diffusion restriction. There is no evidence of bleed mass effect or abnormal extra-axial fluid collection. IMPRESSION: Chronic ischemic microvascular changes. No evidence of acute disease. Electronically signed by Royer Gardiner 05/14/2017 2:01 PM
[2017-05-14] MEDS: PRILOSEC PO SCH (14:20)
[2017-05-14] MEDS: TRANDATE PO SCH ×3 (14:21→17:06)
[2017-05-14] MEDS: FLOMAX PO SCH (14:23)
[2017-05-14] MEDS: RESTORIL PO SCH (22:51)
[2017-05-15] MEDS: DUONEB (A & A) INH SCH ×4 (03:23→22:07)
[2017-05-15] MEDS: MAXIPIME 1 GM/NS 1 GM/50 ML IVPB IV SCH (04:18)
[2017-05-15] MEDS: APRESOLINE PO SCH ×3 (04:18→21:38)
[2017-05-15] MEDS: NITROGLYCERIN TOP SCH ×5 (04:18→22:34)
[2017-05-15 04:54] LABS: ALLEN TEST YES; BE 9.9 mmoll (-3.0-3.0); BLOOD TYPE ARTERIAL; DRAW SITE L RADIAL; METHB 0.9 % (0.0-1.5); O2(CT) 9.6 mL/dL (15.0-23.0); PCO2(98.6) 49 mmHg (35-45); PO2(98.6) 56 mmHg (60-100); SAMPLE BLOOD; SAO2 92.6 % (95.0-100.0); THB 7.6 g/dL (11.5-17.4); pH(98.6) 7.46 (7.35-7.45)
[2017-05-15 04:57] LABS: MODALITY CANNULA
[2017-05-15 06:01] LABS: MANUAL DIFF NEEDED? NO
[2017-05-15 06:04] LABS: BASO% 0.2 % (0.0-0.8); HEMOGLOBIN 9.8 g/dL (14.0-18.0); IMM GRAN# 0.16 X1000 (0.0-0.04); IMM GRAN% 1.6 % (0.0-0.5); LYMPH# 0.88 X1000 (1.2-3.4); MCH 27.3 PG (27-31); MCHC 31.6 g/dL (33-37); MCV 86.4 FL (81-99); MONO# 0.94 X1000 (0.11-0.59); MONO% 9.6 % (1.7-9.3); NEUT% 77.6 % (42.2-75.2); PLT 309 X1000 (130-400); RBC 3.59 XMIL (4.7-6.1)
[2017-05-15] MEDS: HUMALOG SUBQ SCH ×4 (06:04→20:52)
[2017-05-15 06:26] LABS: AGAP 14; ALBUMIN 2.7 g/dL (3.5-5.0); ALKALINE PHOSPHATASE 84 U/L (32-122); BUN 18 mg/dL (8-22); CALCIUM 9.2 mg/dL (8.8-10.2); CHLORIDE 97 mmol/L (98-107); COSMO 285; GOT 20 U/L (10-34); GPT 20 U/L (10-44); MAGNESIUM 1.8 mg/dL (1.5-2.7); POTASSIUM 3.5 mmol/L (3.5-5.1); SODIUM 140 mmol/L (136-145); TCO2 29 mmol/L (25-35); TOTAL BILIRUBIN 0.84 mg/dL (0.20-1.00); TOTAL PROTEIN 7.8 g/dL (6.3-8.3)
[2017-05-15] MEDS ORDERED: ATIVAN IV PRN (10:07)
[2017-05-15] MEDS: DEPAKOTE SPRINKLE PO SCH ×2 (10:37→21:38)
[2017-05-15] MEDS: LIPITOR PO SCH (10:37)
[2017-05-15] MEDS: TRANDATE PO SCH ×3 (10:37→17:28)
[2017-05-15] MEDS: LASIX PO SCH (10:38)
[2017-05-15] MEDS: NORVASC PO SCH ×2 (10:38→21:37)
[2017-05-15] MEDS: RANEXA PO SCH ×2 (10:38→21:37)
[2017-05-15] MEDS: ELIQUIS PO SCH ×2 (10:38→21:38)
[2017-05-15] MEDS: PRILOSEC PO SCH (10:38)
[2017-05-15] MEDS: COZAAR PO SCH (10:38)
[2017-05-15] MEDS: FOLIC ACID PO SCH (10:38)
[2017-05-15] MEDS: ASPIRIN PO SCH (10:39)
[2017-05-15] MEDS: FLOMAX PO SCH (10:39)
[2017-05-15] MEDS: ALDACTONE PO SCH (10:39)
[2017-05-15] MEDS: VITAMIN B-12 PO SCH ×2 (10:39→21:38)
[2017-05-15] MEDS: CENTRUM SILVER PO SCH (10:39)
[2017-05-15] MEDS: MUCOMYST 20% INH SCH (11:05)
[2017-05-15] MEDS: VITAMIN E PO SCH (11:38)
--- NOTE | 2017-05-15 12:11 | PROGRESS NOTE ---
DATE: 05/15/2017 PRIMARY CARE PHYSICIAN: Dr. Sky Flores. CARDIOLOGY: Dr. Novak is following as well. SUBJECTIVE: Overnight, the patient responded well to the Depakote. Upon checking the records, last dosage of Geodon was 05/13 at 0757 hours. Complaints per the who is at the bedside was that the patient still is experiencing acute delirium that is waxing and waning in nature, but less combative status post the use of Depakote. OBJECTIVE: Vital Signs: On physical exam, temperature 98 degrees, pulse 85, respirations 18, blood pressure 140/80, O2 saturation 95 on 2 L nasal cannula. I's and O's demonstrate negative 1100 mL out. Two bowel movements noted. General: Alert male with surgical absence of the right hand above wrist. HEENT: Oropharynx is clear. Moist mucous membranes. CV: Irregular rhythm with a regular rate. No murmurs noted. Chest: Clear to auscultation anteriorly. Minimal rhonchi that clears with cough. Abdomen: Protuberant, soft, nondistended. No guarding, no rebound. Extremities: Lower extremities with trace lower extremity edema. Neurologic: Cranial nerves 2 through 12 are grossly intact. Lower extremity reflexes are normal. Patient has normal strength, but slight atrophy secondary to disuse. Regarding the patient's psychologic status, patient still is experiencing waxing and waning of mentation with poor reality testing. LABS: WBC 9.77 with a hemoglobin and hematocrit of 9.8 and 31.8. Neutrophils at 77.6. Blood gas showing a pH improved to 7.46 with a pCO2 of 49, bicarbonate of 32.6. Lactate is slightly up at 1.30. FiO2 of 32%. POC glucose from 160-166. AST, ALT within normal limits. BNP continues to trend down. Albumin 2.7. X-RAYS: MRI of brain done 05/14/2017 at 1222 hours showed chronic ischemic microvascular changes. No acute disease. No evidence of diffusion reaction. ASSESSMENT AND PLAN: A 71-year-old male with: 1. Atrial fibrillation, chronic, persistent, rate controlled. 2. ST elevation myocardial infarction. Lexiscan performed, but as of this time results are not available. Will discuss with cardiology any changes in the plan as necessary. 3. Urosepsis with Escherichia coli bacteremia. The patient has had actually 8 days of antibiotic treatment. We will switch to oral medication regimen. Needs for consulting infectious disease have decreased now that patient's white blood cell is coming down. We will continue to monitor on the oral antibiotic regimen. 4. Diabetes 2 well-controlled above and beyond basal home regimen. We will increase the insulin dosage as we note the patient's increased intake. 5. Hypercarbic respiratory failure. Arterial blood gases still showing abnormalities. Patient is still requiring 3 liters of oxygen. No need for diuresis at this time. We will continue to monitor daily and evaluate. 6. Metabolic encephalopathy with moderate to severe delirium, now reaching a chronic state. Patient is responding well to the Depakote. We will decrease the medications that are sedating or disorienting at this time. 7. Electrolyte imbalances responding well. No need for any repletion today. DISPOSITION: Recommendations are being made for disposition to rehabilitation. I will have both social work and the hospital discuss with patient that specific need, but due to past history and nausea of the patient, I think it is unlikely they will be agreeing to discharge. It is likely that the delirium will last anywhere from 3 weeks up to 3 months, so it might be difficult to access at home. The patient's current state with physical therapy has been deemed as low quality, so will follow status post with changes. cc: Sky Flores MD
[2017-05-15] MEDS: NORCO-10 PO PRN ×2 (13:07→19:00)
--- NOTE | 2017-05-15 13:08 | Diag Imaging Result Doc PS360 ---
EXAM: CHEST-1 VIEW HISTORY: hypoxia/chf TECHNIQUE: AP portable at 1300 COMMENT: There is cardiomegaly. There is ill-defined opacity in both lung bases particularly the left lower lobe and lingula. There appears to be less opacification of the upper lung zones and on 05/12/2017 however the opacification of the left base is worse. IMPRESSION: Pulmonary edema and cardiomegaly. Electronically signed by Royer Gardiner 05/15/2017 1:06 PM
--- NOTE | 2017-05-15 13:11 | Diag Imaging Result Document ---
PROCEDURE NAME: MYOCARDIAL PERF SCAN, STR/REST - 05/14/2017 PROCEDURE: Lexiscan Cardiolite stress test. DESCRIPTION OF PROCEDURE IN DETAIL: Baseline electrocardiogram revealed atrial fibrillation, nonspecific ST-T changes. Lexiscan was infused per standard protocol. There was no chest pain. Stress electrocardiogram was nondiagnostic baseline ST-T changes. Total of 15.9 mCi of Cardiolite was injected for the rest phase, 46 mCi of Cardiolite was injected for the stress phase. Gated SPECT images were obtained in standard views. Images revealed moderate to severe grade, fixed defect in the inferior wall diagnostic of infarct or scar. In addition, there is fixed defect in the inferoapical wall. There is significant chest wall attenuation as well. Left ventricular ejection fraction 53%. There is inferior wall hypokinesis. There is no evidence of ischemia. CONCLUSIONS: 1. No chest pain. 2. Nondiagnostic Lexiscan stress electrocardiogram. 3. Baseline atrial fibrillation. 4. There is no evidence of ischemia on the myocardial perfusion scan. 5. There is moderate to severe grade, fixed defect in the inferior wall and inferoapical wall diagnostic of infarct. 6. Left ventricular ejection fraction 53%. cc: Monty Novak MD
[2017-05-15] MEDS: RESTORIL PO SCH (21:37)
[2017-05-16] MEDS: NORCO-10 PO PRN ×4 (00:35→21:09)
[2017-05-16] MEDS: DUONEB (A & A) INH SCH ×4 (03:24→21:46)
[2017-05-16 05:47] LABS: MANUAL DIFF NEEDED? NO
[2017-05-16] MEDS: APRESOLINE PO SCH ×3 (05:57→21:10)
[2017-05-16] MEDS: NITROGLYCERIN TOP SCH ×5 (05:57→22:33)
[2017-05-16 06:00] LABS: BASO% 0.2 % (0.0-0.8); EOS% 3.3 % (0.0-10.0); HEMATOCRIT 31.5 % (42.0-52.0); HEMOGLOBIN 9.8 g/dL (14.0-18.0); IMM GRAN# 0.11 X1000 (0.0-0.04); IMM GRAN% 1.2 % (0.0-0.5); LYMPH# 1.01 X1000 (1.2-3.4); MCH 27.2 PG (27-31); MCHC 31.1 g/dL (33-37); MCV 87.5 FL (81-99); MONO# 0.83 X1000 (0.11-0.59); MONO% 9.1 % (1.7-9.3); NEUT% 75.2 % (42.2-75.2); PLT 328 X1000 (130-400)
[2017-05-16] MEDS: HUMALOG SUBQ SCH ×4 (06:05→22:30)
[2017-05-16 06:14] LABS: AGAP 8; ALBUMIN 2.5 g/dL (3.5-5.0); ALKALINE PHOSPHATASE 78 U/L (32-122); BUN 21 mg/dL (8-22); CALCIUM 9.4 mg/dL (8.8-10.2); CHLORIDE 99 mmol/L (98-107); COSMO 281; GOT 15 U/L (10-34); GPT 18 U/L (10-44); POTASSIUM 3.4 mmol/L (3.5-5.1); SODIUM 138 mmol/L (136-145); TCO2 31 mmol/L (25-35); TOTAL BILIRUBIN 0.64 mg/dL (0.20-1.00); TOTAL PROTEIN 7.2 g/dL (6.3-8.3)
[2017-05-16] MEDS: TRANDATE PO SCH ×3 (09:19→17:10)
[2017-05-16] MEDS: RANEXA PO SCH ×2 (09:19→21:10)
[2017-05-16] MEDS: ASPIRIN PO SCH (09:19)
[2017-05-16] MEDS: PRILOSEC PO SCH (09:19)
[2017-05-16] MEDS: VITAMIN E PO SCH (09:20)
[2017-05-16] MEDS: VITAMIN B-12 PO SCH ×2 (09:20→21:09)
[2017-05-16] MEDS: COZAAR PO SCH (09:20)
[2017-05-16] MEDS: LASIX PO SCH (09:20)
[2017-05-16] MEDS: LEVAQUIN PO SCH (09:20)
[2017-05-16] MEDS: CENTRUM SILVER PO SCH (09:20)
[2017-05-16] MEDS: NORVASC PO SCH ×2 (09:20→21:10)
[2017-05-16] MEDS: LIPITOR PO SCH (09:20)
[2017-05-16] MEDS: ALDACTONE PO SCH (09:20)
[2017-05-16] MEDS: DEPAKOTE SPRINKLE PO SCH ×2 (09:20→21:09)
[2017-05-16] MEDS: FLOMAX PO SCH (09:20)
[2017-05-16] MEDS: FOLIC ACID PO SCH (09:21)
[2017-05-16] MEDS: ELIQUIS PO SCH ×2 (09:21→21:10)
[2017-05-16] MEDS: MUCOMYST 20% INH SCH (09:50)
--- NOTE | 2017-05-16 15:19 | PROGRESS NOTE ---
DATE: 05/16/2017 PRIMARY CARE PHYSICIAN: Dr. Sky Flores SUBJECTIVE: Patient responded really well overnight, increased mental clarity, good understanding of the evaluation and the dire nature of patient's lower extremity weakness. 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 PHYSICAL EXAMINATION: Vital signs: Temperature 98.8 degrees, blood pressure 139/63, pulse 83, respirations 18, O2 saturation 91% on room air. Input and output: Note approximately 800 mL negative with greater than 3 L out per Dunn. Eating as appropriate. General: Large male with a surgically absent right hand, no apparent distress. HEENT: Oropharynx is clear. Pupils equal, round, reactive to light and accommodation. Extraocular movements are intact. Chest: Clear to auscultation anteriorly with minimal rhonchi to brisk cough. CARDIOVASCULAR: Regular rate with irregular rhythm. Abdomen: Protuberant, but no tenderness, no rebound. Extremities: Show 3/5 strength bilaterally and normal reflexes. Neurological: Cranial nerves 2- 12 grossly intact. Psychiatric: Patient has appropriate mood and affect. Alert and oriented x3 at this time. LABORATORY: For today note 2 days in a row WBC less than 10, hemoglobin and hematocrit 9.8 and 31.5. Platelets of 328,000. Sodium 138 with potassium 3.4, glucose ranging 138 to 160, BNP of 1180 with protein at 2.5. CHEST X-RAY: Noted to be within normal limits. Brain MRI from 2 days ago noted to be normal. ASSESSMENT: A 71-year-old, white male with: 1. Atrial fibrillation, chronic, persistent. Rate controlled. 2. ST-elevation myocardial infarction. Cleared per Cardiology, status post normal Lexiscan. 3. Urosepsis with Escherichia coli bacteremia. IV antibiotics discontinued. We will continue for 14 total days of antibiotics with p.o. at this time. No need for Infectious Disease. 4. Diabetes 2, well controlled on the current insulin regimen. The patient be discharged on insulin. 5. Hypercarbic respiratory failure. Evaluation of home oxygen has been made and will be available on discharge. 6. Metabolic encephalopathy with moderate to severe delirium. Chronic. Continue Depakote b.i.d. 7. Anemia of blood loss with noted hematochezia. Patient is stable at this time, but will likely require evaluation as outpatient further. PLAN: Discharge has been discussed and decided along with myself and the family. Patient will go to rehab as early as tomorrow. Requesting [facility]. The rehab is necessary due to patient's inability to ambulate on his own, increased size which causes burden, increased risk of fall and danger to self or others. cc: Sky Flores MD
[2017-05-16] MEDS: RESTORIL PO SCH (21:10)
[2017-05-17] MEDS: DUONEB (A & A) INH SCH ×2 (03:26→10:56)
[2017-05-17 06:23] LABS: MANUAL DIFF NEEDED? NO
[2017-05-17] MEDS: APRESOLINE PO SCH ×2 (06:38→12:29)
[2017-05-17] MEDS: NITROGLYCERIN TOP SCH ×2 (06:38→10:53)
[2017-05-17] MEDS: HUMALOG SUBQ SCH ×2 (06:50→10:53)
[2017-05-17 06:55] LABS: ALBUMIN 2.5 g/dL (3.5-5.0); CALCIUM 9.5 mg/dL (8.8-10.2); POTASSIUM 3.5 mmol/L (3.5-5.1); TOTAL BILIRUBIN 0.68 mg/dL (0.20-1.00); TOTAL PROTEIN 7.2 g/dL (6.3-8.3)
[2017-05-17 07:05] LABS: BASO% 0.2 % (0.0-0.8); EOS# 0.28 X1000 (0.0-0.7); EOS% 3.1 % (0.0-10.0); HEMATOCRIT 29.5 % (42.0-52.0); HEMOGLOBIN 9.4 g/dL (14.0-18.0); IMM GRAN# 0.06 X1000 (0.0-0.04); IMM GRAN% 0.7 % (0.0-0.5); LYMPH# 0.98 X1000 (1.2-3.4); LYMPH% 10.8 % (20.5-51.1); MCH 27.6 PG (27-31); MCHC 31.9 g/dL (33-37); MCV 86.8 FL (81-99); MONO# 0.82 X1000 (0.11-0.59); MPV 10.4 FL (7.4-10.4); NEUT% 76.2 % (42.2-75.2); PLT 317 X1000 (130-400)
[2017-05-17] MEDS: LASIX PO SCH (08:00)
[2017-05-17] MEDS: LEVAQUIN PO SCH (08:15)
[2017-05-17] MEDS: FLOMAX PO SCH (08:15)
[2017-05-17] MEDS: COZAAR PO SCH (08:15)
[2017-05-17] MEDS: LIPITOR PO SCH (08:15)
[2017-05-17] MEDS: VITAMIN E PO SCH (08:15)
[2017-05-17] MEDS: DEPAKOTE SPRINKLE PO SCH (08:15)
[2017-05-17] MEDS: RANEXA PO SCH (08:15)
[2017-05-17] MEDS: CENTRUM SILVER PO SCH (08:16)
[2017-05-17] MEDS: ASPIRIN PO SCH (08:16)
[2017-05-17] MEDS: ELIQUIS PO SCH (08:16)
[2017-05-17] MEDS: PRILOSEC PO SCH (08:16)
[2017-05-17] MEDS: FOLIC ACID PO SCH (08:16)
[2017-05-17] MEDS: ALDACTONE PO SCH (08:16)
[2017-05-17] MEDS: NORVASC PO SCH (08:16)
[2017-05-17] MEDS: TRANDATE PO SCH ×2 (08:16→12:29)
[2017-05-17] MEDS: VITAMIN B-12 PO SCH (08:16)
--- NOTE | 2017-05-17 08:27 | DISCHARGE SUMMARY ---
ADMISSION DATE: 05/06/2017 DISCHARGE DATE: PRIMARY CARE PHYSICIAN: Sky Flores MD CHIEF CARDIOLOGY ON THE CASE: Monty Novak MD CHIEF SHOP SUPERVISOR: Rey Brown MD The patient was admitted 05/06/2017, being discharged today 05/17/2017 as soon as bed is available, to rehab facility. CHIEF COMPLAINT: Weakness, altered mental status, and multiple falls. HISTORY OF PRESENT ILLNESS: In brief, a 71-year-old male, presented to the ER with 2 days of increasing confusion, weakness, altered mental status, and multiple falls. Noted to have some hematuria. Concerns in the ER were for urosepsis. Cultures WBC proved as such. PROBLEM LIST ON DISCHARGE: 1. Coronary artery disease, status post myocardial infarction and stent placement in 2002 with coronary artery bypass graft in 2008. 2. Atrial fibrillation, rate controlled. 3. Diabetes mellitus type 2. 4. Urosepsis, Escherichia coli bacteremia. 5. Acute on chronic hypercarbic respiratory failure. 6. Acute kidney injury on chronic kidney disease, resolved. 7. Chronic low back pain with opioid dependence. 8. Anemia with Hemoccult-positive stools. 9. History of pulmonary nodules, followed by Rodri Maurice MD. 10. Hypertension, malignant, [id number]. 11. Hyperlipidemia. 12. Electrolyte imbalance secondary to chronic kidney disease, resolved. IMAGING: The patient had echocardiogram performed 05/06/2017, that showed extremely limited study, with no pericardial effusion noted. Repeat study was recommended. The patient had multiple chest x-rays showing resolution of pleural effusion. The patient had a myocardial perfusion scan performed showed nondiagnostic electrocardiogram, baseline atrial fibrillation, no evidence of ischemia. Moderate to severe fixed defect inferior wall. Ejection fraction 53%. Brain MRI performed 05/14/2017 showed chronic ischemic microvascular changes. No evidence of acute disease. Chest x-ray 05/15/2017 showed pulmonary edema and cardiomegaly. Less opacifications upper lung zones. Shows slight worsening at the bases. LABS: On discharge showed WBC down from 20 to 9.09, with an hemoglobin and hematocrit of 9.4 and 25.9. Neutrophils of 76.2. Chemistry shows a creatinine approximately 1.3, with no anion gap. Electrolytes within normal limits. Blood sugar ranging from approximately 124 to 138. AST and ALT within normal limits. Albumin 2.5. Microbiology from 05/06 shows positive blood and urine cultures, Escherichia coli, with resistance to ampicillin; otherwise, pansensitive. HOSPITAL COURSE: Patient admitted to the ICU. Treated with pressors, along with aggressive ventilation with BiPAP. IV antibiotics, broad structure spectrum were performed. The patient was given IV rate control for the acute on chronic atrial fibrillation. The patient responded well. We had to decrease the fluids over time to further evaluate the condition, status post the slow improvement of the condition. The patient was weaned off of pressors and back onto O2 nasal cannula, after the issues with combativeness associated with delirium with acute, requiring multiple doses of Geodon, but otherwise has been doing well as the course is continued. The patient was placed on Depakote and insulin sliding scale and since has had much improvement in overall function. Lower extremity weakness, due to atrophy and bed-bound status, is of mild concern. The patient is also having some Hemoccult stools, so the aspirin is being held on his discharge medication list. The patient is being discharged today to rehab facility for strengthening, gait imbalance evaluations, so that he can maintain function at home. I think patient will do well. Prognosis is good. The patient has chronic conditions but can be well- maintained. We are decreasing some opioid, the blood pressure medications, and the sleep medications to avoid further sedation and worsening of the acute delirium on some chronic mild dementia. MEDICATIONS: Please refer to medication reconciliation order form for a most up-to-date list. Prescriptions have been written and orders for transition to STR have been placed. cc: Sky Flores MD
[2017-05-17] MEDS: NORCO-10 PO PRN (09:51)
[2017-05-17] MEDS: MUCOMYST 20% INH SCH (10:56)
[2017-05-17 11:42] VITALS: BP 131/61
== END 2017-05-17 14:43 ==
LOC: ED 23:49 → SUATTDRO 05-06 02:38 → ICU 05-06 02:38 → 4N 05-13 12:50
PROVIDERS: ADMIT Family Medicine; ATTEND Family Medicine

== ENCOUNTER 2017-05-21 11:53 | Inpatient (IN) ==
[2017-05-21] MEDS ORDERED: NS 1,000 ML IV PRN (12:16)
[2017-05-21 12:24] LABS: MANUAL DIFF NEEDED? NO
[2017-05-21 12:41] LABS: BASO% 0.5 % (0.0-0.8); EOS# 0.18 X1000 (0.0-0.7); EOS% 2.4 % (0.0-10.0); HEMATOCRIT 30.1 % (42.0-52.0); HEMOGLOBIN 9.4 g/dL (14.0-18.0); IMM GRAN# 0.04 X1000 (0.0-0.04); IMM GRAN% 0.5 % (0.0-0.5); LYMPH# 0.88 X1000 (1.2-3.4); LYMPH% 11.8 % (20.5-51.1); MCH 27.2 PG (27-31); MCHC 31.2 g/dL (33-37); MONO# 0.75 X1000 (0.11-0.59); MPV 9.8 FL (7.4-10.4); NEUT% 74.8 % (42.2-75.2); PLT 386 X1000 (130-400); RBC 3.46 XMIL (4.7-6.1)
[2017-05-21 12:52] LABS: INR 1.2; PROTIME 12.7 Seconds (9.2-11.7); PTT 27.3 Seconds (22.0-36.0)
[2017-05-21 13:34] LABS: ALBUMIN 3.1 g/dL (3.5-5.0); CALCIUM 10.1 mg/dL (8.8-10.2); MAGNESIUM 1.5 mg/dL (1.5-2.7); POTASSIUM 3.4 mmol/L (3.5-5.1); TOTAL BILIRUBIN 0.58 mg/dL (0.20-1.00); TOTAL PROTEIN 7.6 g/dL (6.3-8.3)
--- NOTE | 2017-05-21 16:13 | PROVIDER DOCUMENTATION ---
This chart was entered by Danika Aquino Scribe, acting as scribe for Uvaldo Weiner MD. HPI-Abdominal Pain/GI Problem - General Stated Complaint: possible GI bleed Time Seen by Provider: 05/21/17 12:02 Source: patient, EMS, [facility] records Allergies/Adverse Reactions: Patient Allergies Allergy/AdvReac Type Severity Reaction Status Date / Time bacitracin Allergy Intermediate RASH Verified 05/21/17 12:16 [From Neosporin ([id number])] bacitracin zinc * Allergy Intermediate RASH Verified 05/21/17 12:16 [From Neosporin ([id number])] neomycin sulfate * Allergy Intermediate RASH Verified 05/21/17 12:16 [From Neosporin ([id number])] polymyxin B Allergy Intermediate RASH Verified 05/21/17 12:16 [From Neosporin ([id number])] Home Medications: Home Medication List Medication Instructions Recorded Confirmed Last Taken Type Labetalol [Trandate] 400 mg PO TID 08/20/13 05/21/17 05/21/17 10:00 History Metformin [Glucophage] 1,000 mg PO BID CC 08/20/13 05/21/17 05/21/17 06:00 History Omeprazole [Prilosec] 40 mg PO DAILY 08/20/13 05/21/17 05/21/17 06:00 History Tamsulosin [Flomax] 0.4 mg PO DAILY 08/20/13 05/21/17 05/21/17 10:00 History Apixaban [Eliquis] 2.5 mg PO BID 06/29/16 05/21/17 05/21/17 10:00 History Cyanocobalamin (Vitamin B-12) 1,000 mcg PO BID 06/29/16 05/21/17 05/21/17 10:00 History [Vitamin B-12] Folic Acid 1 each PO DAILY 06/29/16 05/21/17 05/21/17 10:00 History Ranolazine [Ranexa] 500 mg PO BID 06/29/16 05/21/17 05/05/17 History Multivitamins/Minerals [Centrum 1 each PO DAILY #0 tablet 12/18/16 05/21/1705/31 10:00 Rx Silver] ATORVAstatin [Lipitor] 20 mg PO DAILY 05/06/17 05/21/17 05/20/17 21:00 History Nitroglycerin 0.4 mg SL PRN PRN 05/06/17 05/21/17 05/20/17 23:00 History Amlodipine [Norvasc] 5 mg PO BID tablet 05/16/17 05/21/17 05/21/17 10:00 Rx Divalproex [Depakote Sprinkle] 250 mg PO BID capsule 05/16/17 05/21/17 10:00 Rx Furosemide [Lasix] 40 mg PO DAILY tablet 05/16/17 05/21/17 05/21/17 10:00 Rx Hydralazine [Apresoline] 25 mg PO Q8HR tablet 05/16/17 05/21/17 05/21/17 06:00 Rx Hydrocodone/APAP 10 mg/325 mg 1 each PO Q6H PRN PRN #60 tablet 05/16/1705/21/17 03:00 Rx [[place]-10] Losartan [Cozaar] 50 mg PO DAILY tablet 05/16/17 05/21/17 05/21/17 10:00 Rx Nitroglycerin 2 inch TOP Q6H oint...g. 05/16/17 05/21/17 05/21/17 11:00 Rx Spironolactone [Aldactone] 25 mg PO DAILY #30 tablet 05/16/17 05/21/17 Unknown Rx Temazepam [Restoril] 30 mg PO QHS #30 capsule 05/16/17 05/21/17 Unknown Rx Vitamin E 400 unit PO DAILY capsule 05/16/17 05/21/17 05/21/17 08:00 Rx Levofloxacin [Levaquin] 500 mg PO DAILY 05/21/17 05/21/17 05/21/17 10:00 History Metronidazole [Flagyl] 250 mg PO TID 05/21/17 05/21/17 05/21/17 10:00 History - History of Present Illness-ABD Nature of Presenting Problems: 71 yo M presents to the ER with complaint of rectal bleeding x2 days. Reports bright red blood, with or without stool. States he was hospitalized a couple years ago with similar problem and they found internal hemorrhoids. Denies any abdominal pain or rectal pain. Denies any CP or SOB. Takes Eloquis daily for a -fib. Onset/Duration: reports: 2 days ago Dark Stools Present?: reports: bright red blood Rectal Bleeding: reports: bleeding without stool Rectal Pain: reports: none Review of Systems - Adult - REVIEW OF SYSTEMS - ADULT Constitutional: denies: chills, fever Eyes: reports: no symptoms reported Ears, Nose, Mouth & Throat: reports: no symptoms reported Cardiovascular: denies: chest pain, palpitations Respiratory: denies: cough, shortness of breath Gastrointestinal: reports: rectal bleeding. denies: abdominal pain, diarrhea, nausea, vomiting Genitourinary: reports: no symptoms reported Musculoskeletal: reports: no symptoms reported Integumentary: reports: no symptoms reported Neurological: reports: no symptoms reported Psychiatric: reports: no symptoms reported Endocrine: reports: no symptoms reported Hematologic/Lymphatic: reports: no symptoms reported Allergic/Immunologic: reports: no symptoms reported All Other Systems: Reviewed and Negative Past History - Adult - PAST MEDICAL HISTORY-ADULT Review of Records: reports: Nursing Assessment Review, Medications Reviewed Cardiovascular: reports: HTN Respiratory: reports: sleep apnea Endocrine/Immune: reports: Diabetes Other Conditions: reports: other cancer (melanoma) - PRIOR SURGERIES/PROCEDURES Surgical/Procedure History: reports: CABG, orthopedic (extremity) (RUE amputation) - IMMUNIZATION STATUS Childhood Immunizations: See Nurse Assessment Flu Vaccine: See Nurse Assessment Physical Exam-General - PHYSICAL EXAM-ADULT Initial Vital Signs Reviewed: Yes - CONSTITUTIONAL General Appearance: alert, no apparent distress - EYES Eyes: PERRL/EOMI, pink conjunctivae - HEAD, EARS, NOSE, MOUTH & THROAT HENMT: normocephalic/atraumatic, normal ENT inspection - NECK Neck: supple, normal inspection - RESPIRATORY Respiratory: no respiratory distress, no accessory muscle use - CARDIOVASCULAR Cardiovascular: normal peripheral pulses, regular rate, rhythm - GASTROINTESTINAL (ABDOMEN) Abdominal Exam: normal bowel sounds, non tender, soft - GENITOURINARY Rectal Exam: normal rectal tone, other (ulcer, no stool only bright red blood and mucous). negative: hemorrhoids (no external) - MUSCULOSKELETAL Back Exam: no CVA tenderness, no vertebral tenderness Extremity: normal range of motion, non-tender, normal gait, normal inspection, deformity (L leg, previous injury/surgery) - SKIN Integumentary: normal color, warm/dry - NEUROLOGIC Neurologic: grossly normal, no motor/sensory deficits - PSYCHIATRIC Psych/Mental Status: normal mood/affect, normal thought content, normal thought process, oriented x 3 Progress - PLAN OF CARE/RESULTS Progress/Plan/Lab Results: Vital Signs - 8 hr 05/21/17 11:57 05/21/17 14:37 Temperature 97.9 F Pulse Rate 84 83 Respiratory Rate 16 17 Blood Pressure 128/73 113/59 O2 Sat by Pulse Oximetry 97 97 05/21/17 14:26 Stool Occult Blood (BRIAN) - Final Stool Laboratory Results - last 24 hr 05/21/17 05/21/17 05/21/17 12:05 12:05 12:05 WBC 7.48 RBC 3.46 L Hgb 9.4 L Hct 30.1 L MCV 87.0 MCH 27.2 MCHC 31.2 L RDW Std Deviation 17.2 H Plt Count 386 MPV 9.8 Immature Gran % (Auto) 0.5 Neut % (Auto) 74.8 Lymph % (Auto) 11.8 L Logan % (Auto) 10.0 H Eos % (Auto) 2.4 Baso % (Auto) 0.5 Immature Gran # (Auto) 0.04 Neut # (Auto) 5.59 Lymph # (Auto) 0.88 L Logan # (Auto) 0.75 H Eos # (Auto) 0.18 Baso # (Auto) 0.04 PT 12.7 H INR 1.20 PTT (Actin FS) 27.3 Sodium 138 Potassium 3.4 L Chloride 100 Carbon Dioxide 25 Anion Gap 13 BUN 22 Creatinine 1.4 H Estimated GFR/1.73 m2 50 BUN/Creatinine Ratio 16 Glucose 133 H Calculated Osmolality 281 Calcium 10.1 Magnesium 1.5 Total Bilirubin 0.58 AST 16 ALT 17 Alkaline Phosphatase 76 Total Protein 7.6 Albumin 3.1 L Globulin 4.5 Albumin/Globulin Ratio 0.7 Blood Type Antibody Screen 05/21/17 12:05 WBC RBC Hgb Hct MCV MCH MCHC RDW Std Deviation Plt Count MPV Immature Gran % (Auto) Neut % (Auto) Lymph % (Auto) Logan % (Auto) Eos % (Auto) Baso % (Auto) Immature Gran # (Auto) Neut # (Auto) Lymph # (Auto) Logan # (Auto) Eos # (Auto) Baso # (Auto) PT INR PTT (Actin FS) Sodium Potassium Chloride Carbon Dioxide Anion Gap BUN Creatinine Estimated GFR/1.73 m2 BUN/Creatinine Ratio Glucose Calculated Osmolality Calcium Magnesium Total Bilirubin AST ALT Alkaline Phosphatase Total Protein Albumin Globulin Albumin/Globulin Ratio Blood Type B POSITIVE Antibody Screen NEGATIVE Orders Category Date Time Status IV Insertion ORDERED Care 05/21/17 12:17 Completed Saline Loc DIRECTED Care 05/21/17 12:16 Active CBC WITH ELECTRONIC DIFF [HEME] Stat Lab 05/21/17 12:05 Completed COMPREHENSIVE METABOLIC PANEL [CHEM] Stat Lab 05/21/17 12:05 Completed MAGNESIUM [CHEM] Stat Lab 05/21/17 12:05 Completed OCCULT BLOOD NON-FECES Stat Lab 05/21/17 12:16 Uncollected OCCULT BLOOD SCREENING [STOOL] Stat Lab 05/21/17 14:26 Completed PROTIME WITH INR [COAG] Stat Lab 05/21/17 12:05 Completed PTT [COAG] Stat Lab 05/21/17 12:05 Completed TYPE & SCREEN [BBK] Stat Lab 05/21/17 12:05 Completed 0.9% Sodium Chloride Inj [Ns] 1,000 ml Med 05/21/17 12:16 Active IV 125 mls/hr hemoglobin is 0.4 gm/dl lower than when d/c on May 16. review of prior notes reveals mention of guiaic pos stools (but not marisol hematochezia) during recent admit, ASA was stopped. Discussed with Dr. Cuello (covering for Dr. Flores) who recommended admission and withhold apixaban for now. Result Diagrams: 05/21/17 12:05 05/21/17 12:05 - CONSULTS/PCP/HOSPITALIST Notification #1 *Consult/PCP/Hospitalist*: Dr. Cuello Time Discussed: 16:07 Consult Disposition: Admit Departure - Departure Date of Disposition Decision: 05/21/17 Time of Disposition Decision: 16:12 DIAGNOSIS: Hematochezia Disposition: ADMITTED INPATIENT 09 Certified Medical Emergency: Emergent Condition: Fair Referrals and Follow-Ups: Sky Flores MD [ACTIVE STAFF PHYSICIAN] - - Critical Care Note This patient required my direct & personal management of CC.: No This chart was documented by the indicated scribe, (Danika Aquino Scribe) and accurately reflects the services I performed and decisions made by me, Uvaldo Weiner MD, as attested by the provider's signature.
[2017-05-21] MEDS ORDERED: SALINE LOCK IV FLUID XX ONE (18:19)
[2017-05-21] MEDS ORDERED: NITROGLYCERIN SL PRN (18:21)
[2017-05-21] MEDS ORDERED: NORCO-10 PO PRN (18:21)
--- NOTE | 2017-05-21 18:58 | HISTORY AND PHYSICAL ---
CHIEF COMPLAINT: Bright red rectal bleeding. PRESENT ILLNESS: This is one of several [facility] admissions for this 71-year-old, white man who has been at rehab for 4 days after an admission 05/06 to 05/17/2017. Diagnoses that admission were sepsis and urinary tract infection, coronary artery disease, atrial fibrillation, diabetes, acute hypercarbic respiratory failure, acute kidney injury, low back pain with opioid dependence, anemia and Hemoccult-positive stool. There is history of pulmonary nodules unchanged over the past several months and he is followed by Dr. Maurice. He was doing fairly well at rehab until developing bright red rectal bleeding. He presented to the emergency room. Hematocrit was found to be a few points lower than on last admission with value at 30. Hemoglobin was 10 last admission, 9.4 this admission. He is admitted for further evaluation and monitoring of bleeding and hematocrit. He had colonoscopy by Dr. Morejon 3 weeks ago revealing no significant abnormality. There is history of diverticulosis and esophagitis. He is on omeprazole 40 mg daily. There is history of atrial fibrillation and he is being treated with Eliquis 2.5 mg b.i.d. PAST SURGERY HISTORY: Numerous surgeries including several back surgeries, melanoma skin cancer, cardiac stent placement in 2002, coronary artery bypass graft in 2008, cholecystectomy 2008, lumbar fusion 2009, lumbar alignment laminectomy 1999, 2003 and 2012. Several surgeries for ankle fracture with pin placement. 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 SOCIAL HISTORY: 3-4 packs per day smoker for 52 years. He stopped smoking in 2008 when he had his coronary artery bypass grafts. He denies alcohol or drug usage. FAMILY HISTORY: Significant for stroke, heart disease and cancer. ALLERGIES: Neosporin which causes a rash. PRESENT MEDICATIONS: Amlodipine 5 mg b.i.d. Lipitor 20 mg daily. B12 vitamin 1000 mcg b.i.d. Depakote 250 mg b.i.d. Folic acid 1 mg daily. Hydralazine 25 mg q.8 hours. [place] 10/325, 1 q.6 hours p.r.n. pain. Labetalol 400 mg t.i.d. Levaquin 500 mg daily. Losartan 50 mg daily. Metformin 1000 mg b.i.d. Metronidazole 250 mg t.i.d. Multivitamins 1 daily. Nitroglycerin topical 2 inches q.6 hours and sublingual 0.4 mg p.r.n. Omeprazole 40 mg daily. Ranexa 500 mg b.i.d. Spironolactone 25 mg daily. Flomax 0.4 mg daily. Temazepam 30 mg at bedtime, and vitamin E 400 units p.o. daily. REVIEW OF SYSTEMS: Significant for chronic back pain and hypertension. Also coronary artery disease as above. He has had mild renal insufficiency or chronic kidney disease stage 2 and has been followed by Dr. Brown. He has been followed with pulmonary nodules by Dr. Maurice. He had a colonoscopy as above by Dr. Morejon 3 weeks ago. He had Hemoccult-positive stool during the last admission 05/06 to 05/17, but no hematochezia until today. IMPRESSION: Hematochezia most likely related to Eliquis, coronary artery disease, anemia, hypertension. PLAN: Admit for observation and serial hematocrits. Eliquis is held. PHYSICAL EXAMINATION: VITAL SIGNS: Temperature 97.7 degrees, heart rate 84, respirations 20, blood pressure 122/69, O2 saturation on room air 97%. Height 6 feet 6 inches. Weight 310 pounds. GENERAL: Patient is a well-developed, well-nourished, arousable white man in no distress. HEENT: Pupils are equal, round, and reactive to light. Mucous membranes are slightly pale. Pharynx benign. NECK: Supple with no mass or lymphadenopathy. HEART: Irregular in rate and rhythm with no murmur or gallop. LUNGS: Clear with no rales or rhonchi. ABDOMEN: Soft with no mass, tenderness, or organomegaly. EXTREMITIES: No cyanosis, clubbing, or edema. There is absence of the right hand post traumatic amputation in 1981. RECTAL AND GENITALIA: Deferred. IMPRESSION: Hematochezia and anemia. PLAN: As above. Hopefully his rectal bleeding will stop after Eliquis is discontinued. This may be held for several days before restarting. If his hematocrit remains stable he may only stay in the hospital a day or 2. cc: MD Sky De León MD
[2017-05-21] MEDS ORDERED: RESTORIL PO SCH (21:00)
[2017-05-21] MEDS: APRESOLINE PO SCH (21:05)
[2017-05-21] MEDS: TRANDATE PO SCH (21:05)
[2017-05-21] MEDS: VITAMIN B-12 PO SCH (21:06)
[2017-05-21] MEDS: NORVASC PO SCH (21:06)
[2017-05-21] MEDS: RANEXA PO SCH (21:06)
[2017-05-21] MEDS: FLAGYL PO SCH (21:06)
[2017-05-21] MEDS: DEPAKOTE SPRINKLE PO SCH (21:06)
[2017-05-21] MEDS: NITROGLYCERIN TOP SCH (21:07)
[2017-05-22] MEDS: NITROGLYCERIN TOP SCH ×2 (01:47→06:44)
[2017-05-22] MEDS: APRESOLINE PO SCH (04:23)
[2017-05-22 06:08] LABS: MANUAL DIFF NEEDED? NO
[2017-05-22 06:24] LABS: BASO% 0.6 % (0.0-0.8); EOS# 0.19 X1000 (0.0-0.7); EOS% 3.9 % (0.0-10.0); HEMATOCRIT 29.8 % (42.0-52.0); HEMOGLOBIN 9.5 g/dL (14.0-18.0); IMM GRAN# 0.03 X1000 (0.0-0.04); IMM GRAN% 0.6 % (0.0-0.5); LYMPH# 0.79 X1000 (1.2-3.4); MCH 27.8 PG (27-31); MCHC 31.9 g/dL (33-37); MCV 87.1 FL (81-99); MONO# 0.69 X1000 (0.11-0.59); MPV 9.9 FL (7.4-10.4); NEUT% 64.9 % (42.2-75.2); PLT 363 X1000 (130-400); RBC 3.42 XMIL (4.7-6.1)
[2017-05-22 07:48] VITALS: BP 154/71
[2017-05-22] MEDS ORDERED: GLUCOPHAGE PO SCH (08:00)
[2017-05-22] MEDS ORDERED: LIPITOR PO SCH (09:00)
[2017-05-22] MEDS ORDERED: COZAAR PO SCH (09:00)
[2017-05-22] MEDS ORDERED: ALDACTONE PO SCH (09:00)
[2017-05-22] MEDS ORDERED: VITAMIN E PO SCH (09:00)
[2017-05-22] MEDS ORDERED: LEVAQUIN PO SCH (09:00)
[2017-05-22] MEDS ORDERED: FLOMAX PO SCH (09:00)
[2017-05-22] MEDS ORDERED: CENTRUM SILVER PO SCH (09:00)
[2017-05-22] MEDS ORDERED: FOLIC ACID PO SCH (09:00)
[2017-05-22] MEDS ORDERED: PRILOSEC PO SCH (09:00)
[2017-05-22] MEDS: FLAGYL PO SCH (09:18)
[2017-05-22] MEDS: NORVASC PO SCH (09:18)
[2017-05-22] MEDS: TRANDATE PO SCH (09:19)
[2017-05-22] MEDS: DEPAKOTE SPRINKLE PO SCH (09:19)
[2017-05-22] MEDS: VITAMIN B-12 PO SCH (09:20)
[2017-05-22] MEDS: RANEXA PO SCH (09:20)
--- NOTE | 2017-05-22 16:01 | DISCHARGE SUMMARY ---
ADMISSION DATE: 05/21/2017 DISCHARGE DATE: 05/22/2017 FINAL DIAGNOSES: Hematochezia, most likely due to bleeding diverticula, anticoagulation with Eliquis, atrial fibrillation, hypertension, coronary artery disease. DISCHARGE MEDICATIONS: Usual medication at rehab except that Eliquis is discontinued for several days. It will be restarted on Wednesday. Also he is given a prescription for Fusion Plus to take 1 daily for 1 month. Hematocrit is to be rechecked on Wednesday. DISPOSITION: To rehab. HISTORY: This is one of several recent [facility] admissions for this 71-year-old, white man, a patient of Dr. Flores who had been at rehab for 4 days following an admission for urinary tract infection and sepsis when he began to have bright red rectal bleeding. This was moderate in amount and he presented to the emergency room. Initial hemoglobin and hematocrit were 9.4 and 30.1. This was down 4/10ths of a point in hematocrit. Sodium was 138, potassium 3.4. BUN 22, creatinine 1.4. Glucose 108, albumin 3.1. HOSPITAL COURSE: He was placed on a saline lock and was able to eat fairly well. He had no further bowel movement. Hematocrit this morning is 29.8. He is feeling well. He is transferred back to rehab today where hematocrit will be rechecked and he will be given iron and vitamins. Eliquis will be held until Wednesday. cc: MD Sky De León MD
== END 2017-05-22 12:47 ==
LOC: SUPCPDRO → ED 11:53 → 4N 16:46
PROVIDERS: ADMIT Family Medicine; ATTEND Family Medicine

== ENCOUNTER 2019-09-28 12:22 | Observation (INO) ==
[2019-09-28] MEDS ORDERED: ASPIRIN PO ONE (12:27)
--- NOTE | 2019-09-28 12:37 | EKG Report ---
Test Performed on : 09/28/2019 12:30:21 PM Test Reason : chest pain Blood Pressure : / mmHG Vent. Rate : 089 BPM Atrial Rate : 078 BPM P-R Int : 000 ms QRS Dur : 098 ms QT Int : 382 ms P-R-T Axes : 000 006 052 degrees QTc Int : 464 ms Atrial fibrillation. Septal infarct (cited on or before 18-NOV-2018) Abnormal ECG When compared with ECG of 18-NOV-2018 16:16, Questionable change in initial forces of Septal leads Nonspecific T wave abnormality, improved in Lateral leads Unconfirmed Result
[2019-09-28 13:00] LABS: BASO# 0.02 X1000 (0.0-0.2); BASO% 0.3 % (0.0-0.8); EOS# 0.78 X1000 (0.0-0.7); EOS% 10.7 % (0.0-10.0); HEMATOCRIT 35.7 % (42.0-52.0); HEMOGLOBIN 11.5 g/dL (14.0-18.0); IMM GRAN# 0.02 X1000 (0.0-0.04); IMM GRAN% 0.3 % (0.0-0.5); LYMPH# 1.16 X1000 (1.2-3.4); LYMPH% 15.9 % (20.5-51.1); MCH 32.5 PG (27-31); MCHC 32.2 g/dL (33-37); MCV 100.8 FL (81-99); MONO# 0.79 X1000 (0.11-0.59); MONO% 10.8 % (1.7-9.3); MPV 10.3 FL (7.4-10.4); NEUT# 4.52 X1000 (1.4-6.5); PLT 170 X1000 (130-400); RBC 3.54 XMIL (4.7-6.1); RDW 14.2 % (11.5-14.5); WBC 7.29 X1000 (4.8-10.8)
[2019-09-28 13:01] LABS: INR 1.07
[2019-09-28 13:02] LABS: PTT 30.4 Seconds (22.3-41.8)
--- NOTE | 2019-09-28 13:09 | Diag Imaging Result Doc PS360 ---
EXAM: CHEST-2 VIEWS 09/28/2019 HISTORY: chest pain TECHNIQUE: PA and lateral chest COMMENT: There is a platelike opacity in the left upper lobe which has not changed since 11/18/2018. There are sternotomy wires. There is ill-defined opacity in the right mid lower lung son which has also not changed significantly. The heart size is slightly enlarged. IMPRESSION: Bilateral fibrotic opacities. Cardiomegaly. Electronically signed by Royer Gardiner 09/28/2019 1:07 PM
[2019-09-28 13:34] LABS: ALB/GLOB RATIO 1.6; CALCIUM 9.2 mg/dL (8.8-10.2); CREATININE 1.6 mg/dL (0.7-1.2); POTASSIUM 4.7 mmol/L (3.5-5.1); TOTAL BILIRUBIN 0.56 mg/dL (0.20-1.00); TOTAL PROTEIN 6.5 g/dL (6.3-8.3)
[2019-09-28 13:59] LABS: CK INDEX 1.9 (0.0-2.5); CK-MB 5.42 ng/mL (0.0-5.0)
--- NOTE | 2019-09-28 15:15 | PROVIDER DOCUMENTATION ---
This chart was entered by Mary Marie Scribe, acting as scribe for Donte Mena MD. HPI-Chest Pain - General Chief Complaint: Chest Pain Stated Complaint: CP Time Seen by Provider: 09/28/19 12:36 Source: patient, family () Allergies/Adverse Reactions: Patient Allergies Allergy/AdvReac Type Severity Reaction Status Date / Time bacitracin Allergy Intermediate RASH Verified 09/28/19 12:48 [From Neosporin ([id number])] bacitracin zinc * Allergy Intermediate RASH Verified 09/28/19 12:48 [From Neosporin ([id number])] neomycin sulfate * Allergy Intermediate RASH Verified 09/28/19 12:48 [From Neosporin ([id number])] polymyxin B Allergy Intermediate RASH Verified 09/28/19 12:48 [From Neosporin ([id number])] Home Medications: Home Medication List Medication Instructions Recorded Confirmed Last Taken Type Labetalol [Trandate] 400 mg PO TID 08/20/13 08/18/19 09/28/19 History Omeprazole [Prilosec] 40 mg PO DAILY 08/20/13 09/28/19 08/17/19 History Ranolazine [Ranexa] 500 mg PO BID 06/29/16 09/28/19 09/28/19 History Multivitamins/Minerals [Centrum 1 each PO DAILY #0 tablet 12/18/16 09/28/19 09/28/19 Rx Silver] ATORVAstatin [Lipitor] 20 mg PO DAILY 05/06/17 09/28/19 08/17/19 History Nitroglycerin 0.4 mg SL PRN PRN 05/06/17 09/28/19 09/28/19 History Furosemide [Lasix] 40 mg PO DAILY tablet 05/16/17 09/28/19 09/28/19 Rx Losartan [Cozaar] 50 mg PO DAILY tablet 05/16/17 09/28/19 08/17/19 Rx Spironolactone [Aldactone] 25 mg PO DAILY #30 tablet 05/16/17 09/28/19 08/17/19 Rx Temazepam [Restoril] 30 mg PO QHS #30 capsule 05/16/17 09/28/19 09/27/19 Rx Quetiapine [Seroquel] 50 mg PO QHS 07/06/17 09/28/19 09/27/19 History Trazodone [Desyrel] 50 mg PO QHS 07/06/17 09/28/19 09/27/19 History Apixaban [Eliquis] 2.5 mg PO BID 08/18/19 09/28/19 09/28/19 History Aspirin [Aspir-Low] 81 mg PO HS 08/18/19 09/28/19 09/27/19 History Divalproex Sodium 125 mg PO BID 08/18/19 09/28/19 09/28/19 History Folic Acid 1 mg PO DAILY 08/18/19 09/28/19 09/27/19 History Isosorbide Mononitrate E.r. [Imdur] 60 mg PO DAILY 08/18/19 09/28/19 09/28/19 History Oxycodone HCl/Acetaminophen 1 ea PO DIRECTED 08/18/19 09/28/19 Unknown History [Oxycodone-Acetaminophen 10-325] Hydralazine [Apresoline] 25 mg PO TID 09/28/19 09/28/19 09/28/19 History - History of Present Illness-CP Nature of Presenting Problem: Patient is a 74 year old male who presents with chest pain. States chest pain started at 1100 this afternoon. reports giving the patient 3 doses of nitro. Patient reports pain resolved after nitro. Denies shortness of breath with chest pain. Location: reports: central Chest Pain Radiation: reports: no radiation Quality of Pain: reports: aching Severity in ED: mild Onset/Duration: this afternoon (1100) Timing: gone now Context/Activities at Onset: reports: light activity Associated Symptoms: reports: denies symptoms Nitro Today/Relief: 0.4 mg x 3, provided by ED, complete relief Similar Symptoms Previously?: Yes Recently Seen Here or By Another Healthcare Provider: No Review of Systems - Adult - REVIEW OF SYSTEMS - ADULT Constitutional: reports: no symptoms reported. denies: chills, fever, fatique Eyes: reports: no symptoms reported Ears, Nose, Mouth & Throat: reports: no symptoms reported Cardiovascular: reports: no symptoms reported. denies: chest pain, irregular heart rate, palpitations Respiratory: reports: no symptoms reported. denies: cough, shortness of breath, wheezing Gastrointestinal: reports: no symptoms reported Genitourinary: reports: no symptoms reported Musculoskeletal: reports: no symptoms reported Integumentary: reports: no symptoms reported Neurological: reports: no symptoms reported Psychiatric: reports: no symptoms reported Endocrine: reports: no symptoms reported Hematologic/Lymphatic: reports: no symptoms reported Allergic/Immunologic: reports: no symptoms reported All Other Systems: Reviewed and Negative Past History - Adult - PAST MEDICAL HISTORY-ADULT Review of Records: reports: Old Records Reviewed, Nursing Assessment Review, Medications Reviewed, Social history reviewed & non-contributory. Major Childhood Illnesses: reports: denies history Cardiovascular: reports: cardiac disease, A-Fib, CAD, CHF, HTN, CA Respiratory: reports: asthma, sleep apnea Gastrointestinal: reports: denies history Obstetrical/Gynecological: reports: denies history Genitourinary: reports: denies history Musculoskeletal: reports: denies history Neurological: reports: denies history Endocrine/Immune: reports: Diabetes Other Conditions: reports: other cancer (melanoma) - PRIOR SURGERIES/PROCEDURES Surgical/Procedure History: reports: CABG, cardiac stent, orthopedic (extremity) (RUE amputation), back/neck (back) - IMMUNIZATION STATUS Childhood Immunizations: See Nurse Assessment Flu Vaccine: See Nurse Assessment - FAMILY HISTORY Family History: reviewed, not pertinent - SOCIAL HISTORY Smoking: cigarettes (former) Substance Use: denies Living Situation: family Physical Exam-General - PHYSICAL EXAM-ADULT Initial Vital Signs Reviewed: Yes - CONSTITUTIONAL General Appearance: alert, no apparent distress. negative: lethargic - HEAD, EARS, NOSE, MOUTH & THROAT HENMT: normocephalic/atraumatic, moist mucous membranes. negative: angioedema - RESPIRATORY Respiratory: chest non-tender, lungs clear, normal breath sounds. negative: crackles, rhonchi - CARDIOVASCULAR Cardiovascular: normal peripheral pulses, irregularly irregular. negative: tachycardia - MUSCULOSKELETAL Extremity: normal range of motion, other (edema to bilateral lower extremities. right hand amputation from prior injury in the 80's.). negative: erythema, tenderness - SKIN Integumentary: normal color, normal turgor, warm/dry. negative: diaphoresis, pallor - NEUROLOGIC Neurologic: grossly normal. negative: aphasia, facial droop - PSYCHIATRIC Psych/Mental Status: normal mood/affect, oriented x 3. negative: anxious - HEART Score HEART Score: History: Moderately Suspicious HEART Score: ECG: Non-Specific Repolarization Disturbance/LBBB/PM HEART Score: Age: > or = 65 Years HEART Score: Risk Factors for Atherosclerotic Disease: > or = 3 Risk Factors or History of Atherosclerotic Disease HEART Score: Troponin: < or = Normal Limit Total HEART Score:: 6 Progress - PLAN OF CARE/RESULTS Progress/Plan/Lab Results: Vital Signs - 8 hr 09/28/19 12:23 09/28/19 13:06 09/28/19 14:00 Temperature 98.0 F Pulse Rate 90 80 92 H Respiratory Rate 18 23 12 Blood Pressure 134/78 137/83 137/101 O2 Sat by Pulse Oximetry 98 98 98 09/28/19 14:07 Temperature Pulse Rate 83 Respiratory Rate 12 Blood Pressure 131/80 O2 Sat by Pulse Oximetry 95 Laboratory Results - last 24 hr 09/28/19 09/28/19 09/28/19 12:48 12:48 12:48 WBC 7.29 RBC 3.54 L Hgb 11.5 L Hct 35.7 L MCV 100.8 H MCH 32.5 H MCHC 32.2 L RDW Std Deviation 14.2 Plt Count 170 MPV 10.3 Immature Gran % (Auto) 0.3 Neut % (Auto) 62.0 Lymph % (Auto) 15.9 L [place] % (Auto) 10.8 H Eos % (Auto) 10.7 H Baso % (Auto) 0.3 Immature Gran # (Auto) 0.02 Neut # (Auto) 4.52 Lymph # (Auto) 1.16 L [place] # (Auto) 0.79 H Eos # (Auto) 0.78 H Baso # (Auto) 0.02 PT INR PTT (Actin FS) Sodium 136 Potassium 4.7 Chloride 98 Carbon Dioxide 27 Anion Gap 11 BUN 20 Creatinine 1.6 H Estimated GFR/1.73 m2 43 BUN/Creatinine Ratio 13 Glucose 164 H Calculated Osmolality 278 Calcium 9.2 Total Bilirubin 0.56 AST 18 ALT 14 Alkaline Phosphatase 85 Creatine Kinase 283 H Creatine Kinase Index 1.9 CK-MB (CK-2) 5.42 H Troponin T [id number] Pept 2089 H Total Protein 6.5 Albumin 4.0 Globulin 2.5 Albumin/Globulin Ratio 1.6 09/28/19 09/28/19 12:48 12:48 WBC RBC Hgb Hct MCV MCH MCHC RDW Std Deviation Plt Count MPV Immature Gran % (Auto) Neut % (Auto) Lymph % (Auto) [place] % (Auto) Eos % (Auto) Baso % (Auto) Immature Gran # (Auto) Neut # (Auto) Lymph # (Auto) [place] # (Auto) Eos # (Auto) Baso # (Auto) PT 14.0 INR 1.07 PTT (Actin FS) 30.4 Sodium Potassium Chloride Carbon Dioxide Anion Gap BUN Creatinine Estimated GFR/1.73 m2 BUN/Creatinine Ratio Glucose Calculated Osmolality Calcium Total Bilirubin AST ALT Alkaline Phosphatase Creatine Kinase Creatine Kinase Index CK-MB (CK-2) Troponin T < 0.010 [id number] Pept Total Protein Albumin Globulin Albumin/Globulin Ratio Orders Category Date Time Status Cardiac Monitoring DIRECTED Care 09/28/19 12:27 Active Oxygen Therapy- ED Nursing DIRECTED Care 09/28/19 12:27 Active Saline Loc NOW Care 09/28/19 12:27 Active CHEST-2 VIEWS [RAD] Stat Exams 09/28/19 12:27 Completed CBC WITH ELECTRONIC DIFF [HEME] Stat Lab 09/28/19 12:48 Completed CK PROFILE [SP CHEM] Stat Lab 09/28/19 12:48 Completed COMPREHENSIVE METABOLIC PANEL [CHEM] Stat Lab 09/28/19 12:48 Completed PRO B-NATRIURETIC PEPTIDE Stat Lab 09/28/19 12:48 Completed PROTIME WITH INR [COAG] Stat Lab 09/28/19 12:48 Completed PTT [COAG] Stat Lab 09/28/19 12:48 Completed TROPONIN T Stat Lab 09/28/19 12:48 Completed Aspirin Med 09/28/19 12:27 Discontinued 325 mg PO NOW ONE CP/SOB/Palp >45 yrs of Age Stat Oth 09/28/19 12:27 Ordered EKG [EKG] Stat Ther 09/28/19 12:27 Draft Result Diagrams: 09/28/19 12:48 09/28/19 12:48 - EKG 1 Time of EKG reading by physician:: 12:30 EKG Read and Signed by:: Donte Mena EKG Interpretation (*Must complete 3 of following elements*): Abnormal Rate: 89 Rhythm: atrial fibrillation [place]: normal Comments: septal infarct, age undetermined - XRAY 1 XRAY Study: Chest Impression: See EMR Report ( EXAM: CHEST-2 VIEWS 09/28/2019 HISTORY: chest pain TECHNIQUE: PA and lateral chest COMMENT: There is a platelike opacity in the left upper lobe which has not changed since 11/18/2018. There are sternotomy wires. There is ill-defined opacity in the right mid lower lung son which has also not changed significantly. The heart size is slightly enlarged. IMPRESSION: Bilateral fibrotic opacities. Cardiomegaly. Electronically signed by Royer Gardiner 09/28/2019 1:07 PM 09/28/19 1307 Interpreting Physician: Royer Gardiner MD Dictated Date/Time: 09/28/19 1306 cc: Donte Mena MD; Sky Flores MD) Departure - Departure Date of Disposition Decision: 09/28/19 Time of Disposition Decision: 15:15 DIAGNOSIS: Chest pain Qualifiers: Chest pain type: unspecified Qualified Code(s): R07.9 - Chest pain, unspecified Disposition: ADMITTED INPATIENT 09 Certified Medical Emergency: Emergent Condition: Serious Referrals and Follow-Ups: Sky Flores MD [Primary Care Provider] - - Critical Care Note This patient required my direct & personal management of CC.: No Attestation - Physician/ JONH Attestation The physician spent face to face time with patient:: Yes Advanced Practice Provider documentation review:: Supervising physician onsite and consulted in the evaluation and care of this patient. The physician did have a face to face encounter with the patient. This chart was documented by the indicated scribe, (Mary Marie Scribe) and accurately reflects the services I performed and decisions made by me, Donte Mena MD, as attested by the provider's signature.
[2019-09-28] MEDS ORDERED: NITROGLYCERIN SL PRN (16:36)
[2019-09-28] MEDS ORDERED: ZOFRAN IV PRN (16:36)
[2019-09-28] MEDS ORDERED: TYLENOL PO PRN (16:36)
[2019-09-28] MEDS ORDERED: NORCO-10 PO PRN (16:47)
[2019-09-28 20:34] LABS: CK-MB 4.12 ng/mL (0.0-5.0)
[2019-09-28] MEDS: TRANDATE PO SCH (20:44)
[2019-09-28] MEDS: APRESOLINE PO SCH (20:44)
[2019-09-28] MEDS: ASPIRIN EC PO SCH (20:44)
[2019-09-28] MEDS: SEROQUEL PO SCH (20:45)
[2019-09-28] MEDS: RESTORIL PO SCH (20:45)
[2019-09-28] MEDS: DEPAKOTE SPRINKLE PO SCH (20:45)
[2019-09-28] MEDS: DESYREL PO SCH (20:45)
[2019-09-28] MEDS: ELIQUIS PO SCH (20:46)
[2019-09-28] MEDS: RANEXA PO SCH (20:46)
--- NOTE | 2019-09-28 21:21 | HISTORY AND PHYSICAL ---
PRIMARY CARE PROVIDER: Sky Flores MD AUDIENCE COORDINATOR: Rodri Marks MD CHIEF COMPLAINT: Per at bedside, chest pain. HISTORY OF PRESENT ILLNESS: Mr. Dueñas is a pleasant 74-year-old male, who is lying on the stretcher in the ED, carries a past medical history of chronic atrial fibrillation, coronary artery disease status post CABG, congestive heart failure, hypertension, VT, asthma, sleep apnea of diabetes mellitus type 2 not on any medication, melanoma. The patient thought he had an appointment and was about to go home. He did not know that he was brought in for chest pain; however, states that this morning around 11 a.m. he stated that he had chest pain, and he took 3 nitroglycerin and brought him to the ED. Initially, he did not remember the episode, but after she reminded him, he was like okay I remember now; however, he was not really able to describe the chest pain to me or any associated symptoms. However, given his risk factors and previous history, he will be admitted and observed. On workup in the ED, he does have negative troponins. EKG shows atrial fibrillation. Chest x-ray shows bilateral fibrotic opacities and cardiomegaly. PAST MEDICAL HISTORY: 1. Chronic atrial fibrillation. 2. Coronary artery disease. 3. Congestive heart failure. 4. Hypertension. 5. Diabetes mellitus, type 2, diet controlled. 6. Melanoma. PAST SURGICAL HISTORY: 1. CABG in early . 2. Cardiac stent placement. 3. Back surgery with some type of gel placement. 4. Right hand amputation secondary to an industrial accident at, I think, [facility]. FAMILY HISTORY: Reviewed and noncontributory. SOCIAL HISTORY: He is a former smoker years ago. He lives with his . No alcohol, tobacco, or illicit drug use. ALLERGIES: Bacitracin causes a rash. HOME MEDICATION: 1. Eliquis 2.5 mg p.o. b.i.d. 2. Aspirin 81 mg p.o. at bedtime. 3. Lipitor 20 mg p.o. daily. 4. Divalproex sodium 125 mg p.o. b.i.d. 5. Folic acid 1 mg p.o. daily. 6. Lasix 40 mg p.o. daily. 7. Apresoline 25 mg p.o. t.i.d. 8. Imdur 60 mg p.o. daily. 9. Labetalol 400 mg p.o. t.i.d. 10. Cozaar 50 mg p.o. daily. 11. Multivitamin 1 each p.o. daily. 12. Nitroglycerin 0.4 mg sublingual p.r.n. 13. Prilosec 40 mg p.o. daily. 14. Percocet 10 mg/325 mg 1 each p.o. as directed. 15. Seroquel 50 mg p.o. at bedtime. 16. Ranexa 500 mg p.o. b.i.d. 17. Aldactone 25 mg p.o. daily. 18. Restoril 30 mg p.o. at bedtime. 19. Desyrel 50 mg p.o. at bedtime. REVIEW OF SYSTEMS: On a 12 point review of systems, the patient was not in any current chest pain. No headache. No fever. No chills. No cough. No nausea/vomiting, diarrhea, abdominal pain. He does appear to have some undiagnosed memory issue. PHYSICAL EXAMINATION: VITAL SIGNS: Temperature is 98 degrees, heart rate 83, respirations 12, blood pressure 131/80, O2 is 95% on room air. GENERAL: Mr. Dueñas is a pleasant, sometimes confused, 74-year-old male, lying on the stretcher in no acute distress. HEENT: Atraumatic, normocephalic. PERRL. NECK: Supple. Trachea midline. CARDIOVASCULAR: Irregularly irregular rhythm. No obvious murmurs, gallops, or rubs noted. RESPIRATORY: Lung sounds clear bilaterally. Bilaterally decreased in the bases GASTROINTESTINAL: Obese, soft, nontender, nondistended. Positive bowel sounds 4 quadrants. LOWER EXTREMITIES: Generalized edema, nonpitting. NEUROLOGICAL: No overt focal deficits. He is awake, alert. He knows his name, date of . Once prompted, he does remember that he is in the ER and what he came for. DIAGNOSTIC DATA: Chest x-ray: Cardiomegaly and bilateral fibrotic changes. EKG: Atrial fibrillation. White count 7, hemoglobin 11, hematocrit 35, platelet count 136,000. Potassium 4.7, BUN 20, creatinine 1.6, blood glucose is 64. Troponin less than 0.010. ProBNP is 2089. ASSESSMENT AND PLAN: 1. Chest pain in a patient with known coronary artery disease, who has had myocardial infarction and coronary artery bypass grafting in the past. He is on antianginals. Unsure if just these medications need to be adjusted. We will do a full cardiac workup with an echocardiogram, a stress test in the a.m. We follow up on a lipid profile. Continue with his home regimen for now. 2. Chronic atrial fibrillation. We will continue his home Eliquis. He is currently rate controlled. 3. Hypertension. Continue home medications. 4. Congestive heart failure. We will continue his home Lasix. 5. Diabetes mellitus, type 2. He has recently been taken off his metformin at home. 6. Chronic kidney disease. 7. Probable undiagnosed dementia. Further recommendations to follow physician evaluation and laboratory and diagnostic data. Dictated by ESA Guy for Mg Earl MD cc: MD Sky Mccall MD James Murphy, MD
--- NOTE | 2019-09-28 21:40 | PROGRESS NOTE ---
DATE: 09/28/2019 HISTORY OF PRESENT ILLNESS: The patient was seen and examined by me [id number]. All of the laboratory, vital signs, and images were reviewed. The patient has been brought by his due to chest pain. At the moment of my physical exam, this patient's chest pain is basically resolved. As per the , he has been having a couple of weeks with chest pain on and off, at least 3 or 4 times, and always resolved with nitroglycerin. He sees Dr. Marks at [facility], and she has been told that if this patient has pain, just to bring the patient to the nearest hospital. Vital signs are stable. He is not requiring oxygen to breathe. His chest x- ray showed cardiomegaly and the EKG showed atrial fibrillation. He has been on chronic anticoagulation. We will continue with his home medications. We will request evaluation by Cardiology Department. Probably this patient will need to get a stress test done and also an echocardiogram to start with. On the other hand, this patient seems to be mentally declining. He has been more confused, and per the , everything has been getting worse since for one year. I do believe this patient has dementia. He is able to say his name. He is able to follow commands and he recognized family members at the bedside. PHYSICAL EXAMINATION: This patient has a right hand amputation, traumatic, a long time ago, and also he has some deformity at the level of the right ankle which is chronic.Cardiovascular: RRR. He has a sternotomy scar which is old. Abdomen: Protuberant, but positive bowel sounds. He has 1 to 2+ lower extremity edema. No clubbing. No cyanosis. ASSESSMENT/PLAN: We will admit this patient. We will put this patient on his home medications since he is not having any symptoms. Cardiology Department consulted. We will do a stress test and also we will monitor the cardiac enzymes. The first set of troponins has been negative. The proBNP is 2089. The creatinine is slightly elevated at 1.6, but it seems to be his baseline. I agree with the rest of the nurse practitioner's assessment and plan. cc: Mg Earl MD
[2019-09-29] MEDS: PRILOSEC PO SCH (06:05)
[2019-09-29] MEDS ORDERED: PRILOSEC PO SCH (07:00)
[2019-09-29 07:15] LABS: BASO# 0.02 X1000 (0.0-0.2); BASO% 0.3 % (0.0-0.8); EOS% 11.4 % (0.0-10.0); HEMATOCRIT 37.4 % (42.0-52.0); HEMOGLOBIN 12.3 g/dL (14.0-18.0); IMM GRAN# 0.02 X1000 (0.0-0.04); IMM GRAN% 0.3 % (0.0-0.5); LYMPH# 0.96 X1000 (1.2-3.4); LYMPH% 15.7 % (20.5-51.1); MCH 32.7 PG (27-31); MCHC 32.9 g/dL (33-37); MCV 99.5 FL (81-99); MONO# 0.71 X1000 (0.11-0.59); MONO% 11.6 % (1.7-9.3); MPV 10.5 FL (7.4-10.4); NEUT# 3.72 X1000 (1.4-6.5); NEUT% 60.7 % (42.2-75.2); PLT 165 X1000 (130-400); RBC 3.76 XMIL (4.7-6.1); RDW 14.2 % (11.5-14.5); WBC 6.13 X1000 (4.8-10.8)
--- NOTE | 2019-09-29 07:24 | ECHO REPORT ---
ORDER DATE: 09/28/2019 INTERPRETING PHYSICIAN: Dr. Fernandes REQUESTING PHYSICIAN: Hospitalist. CLINICAL INDICATIONS: Coronary heart disease, chest pain, hypertension. M-MODE MEASUREMENTS: Left ventricle end diastole: 5.8 cm. Left ventricle end systole: 3.6 cm. Posterior wall: 1.1 cm. Interventricular septum: 1.1 cm. Left atrium: 5.3 cm. Aortic diameter: 4.2 cm. SUMMARY OF 2-DIMENSIONAL IMAGING: The left ventricular function is normal. Ejection fraction is 65-70%. There is no wall motion abnormality. The left atrium is significantly enlarged. The patient appears to be in atrial fibrillation. Aortic valve shows sclerosis of the cusp without stenosis. Mitral valve shows trace regurgitation. The pulmonic valve shows a minimal degree of regurgitation. The tricuspid valve shows a mild degree of regurgitation. Pulmonary pressure is estimated at 48-53 mmHg. The right ventricle is slightly prominent. There is no pericardial effusion, mass and no thrombus. SUMMARY: This study shows 1. Excellent left ventricular systolic function. 2. Pulmonary pressure estimated in the range of 48-53 mmHg. 3. Moderately enlarged left atrium and moderately enlarged right atrium. 4. Sclerosis of the aortic valve without stenosis. Patient is in atrial fibrillation, diastolic function cannot be evaluated. cc: Igor Fernandes MD MTDD
--- NOTE | 2019-09-29 07:34 | Diag Imaging Result Doc PS360 ---
EXAM: CHEST-PORTABLE INDICATION: Chest Pain TECHNIQUE: 2 views COMPARISON: 09/28/2019 FINDINGS: Inspiration is suboptimal. Bilateral interstitial thickening and pulmonary venous congestion is approximately stable. The focal airspace consolidation in the right mid to lower lung zone is approximately stable given differences in positioning compared to the previous study. No new consolidation is identified. Cardiac silhouette is stable. IMPRESSION: Essentially stable chest. Electronically signed by Estuardo Perry 09/29/2019 7:31 AM
[2019-09-29 07:35] LABS: AGAP 13; ALB/GLOB RATIO 1.3; ALKALINE PHOSPHATASE 79 U/L (32-122); BUN 17 mg/dL (8-22); CALCIUM 9.7 mg/dL (8.8-10.2); CHLORIDE 100 mmol/L (98-107); CHOLESTEROL 149 mg/dL (0-200); COSMO 283; CREATININE 1.5 mg/dL (0.7-1.2); ESTIMATED GFR 46; GLUCOSE 143 mg/dL (70-104); GOT 22 U/L (10-34); GPT 13 U/L (10-44); HDL 40 mg/dL (35-55); LDL 74 mg/dL; POTASSIUM 4.3 mmol/L (3.5-5.1); SODIUM 140 mmol/L (136-145); TCO2 27 mmol/L (25-35); TOTAL BILIRUBIN 0.75 mg/dL (0.20-1.00); TOTAL PROTEIN 7.1 g/dL (6.3-8.3); TRIGLYCERIDES 175 mg/dL (39-160); VLDL 35 mg/dL
--- NOTE | 2019-09-29 07:45 | EKG Report ---
Test Performed on : 09/29/2019 07:14:27 AM Test Reason : CP Blood Pressure : / mmHG Vent. Rate : 098 BPM Atrial Rate : 250 BPM P-R Int : 000 ms QRS Dur : 096 ms QT Int : 376 ms P-R-T Axes : 000 001 -71 degrees QTc Int : 480 ms Atrial fibrillation. Moderate voltage criteria for LVH, may be normal variant T wave abnormality, consider inferior ischemia Prolonged QT Abnormal ECG When compared with ECG of 28-SEP-2019 12:30, (Unconfirmed) Criteria for Septal infarct are no longer present Non-specific change in ST segment in Inferior leads T wave inversion now evident in Inferior leads T wave inversion now evident in Lateral leads Unconfirmed Result
[2019-09-29] MEDS ORDERED: LEXISCAN ONE (08:14)
[2019-09-29] MEDS: CENTRUM SILVER PO SCH (10:03)
[2019-09-29] MEDS: TRANDATE PO SCH ×3 (10:03→20:47)
[2019-09-29] MEDS: APRESOLINE PO SCH ×3 (10:03→20:47)
[2019-09-29] MEDS: DEPAKOTE SPRINKLE PO SCH ×2 (10:03→20:37)
[2019-09-29] MEDS: COZAAR PO SCH (10:03)
[2019-09-29] MEDS: FOLIC ACID PO SCH (10:04)
[2019-09-29] MEDS: LASIX PO SCH (10:04)
[2019-09-29] MEDS: ALDACTONE PO SCH (10:04)
[2019-09-29] MEDS: RANEXA PO SCH ×2 (10:04→20:30)
[2019-09-29] MEDS: IMDUR PO SCH (10:04)
[2019-09-29] MEDS: ELIQUIS PO SCH ×2 (10:04→20:37)
--- NOTE | 2019-09-29 14:16 | Diag Imaging Result Document ---
PROCEDURE NAME: MYOCARDIAL PERF SCAN, STR/REST - 09/29/2019 INDICATIONS: Chest pain. PROCEDURES PERFORMED: 1. Lexiscan stress. 2. One-day stress rest myocardial perfusion imaging. PROCEDURE AND FINDING: LEXISCAN STRESS RESULTS: 1. Baseline EKG shows atrial fibrillation, rate of 85 beats per minute. 2. Lexiscan stress did not demonstrate any clear evidence of ischemic related EKG changes or significant arrhythmias during the course of the study. PERFUSION IMAGING RESULTS: 1. No evidence of abnormal extracardiac uptake. 2. TID ratio is 1.10. 3. Perfusion imaging demonstrates a moderate-sized defect located in the inferior apical, mid inferior and basal inferior segments. This defect is mild in intensity on rest, worsening to moderate to severe intensity on stress suggesting a baseline defect with a moderate burden of ischemia on top. 4. The ejection fraction appears to be mildly reduced at 49%. The end-diastolic volume is 130 and systolic volume of 67. There appears to be inferior wall hypokinesis on this study. cc: Rubio Disla MD
--- NOTE | 2019-09-29 16:28 | CARDIOLOGY CONSULTATION ---
DATE: 09/29/2019 CONSULTATION REQUESTED BY: Hospitalist service REASON FOR CONSULT: Chest pain. HISTORY: Mr. Dueñas is a 74-year-old male who is normally followed by Dr. Rodri Marks in [place]. He was brought to the emergency room on the day of admission by his because he developed angina pectoris which was happening a little more frequently than usual and he did not get better after the usual 2 sublingual nitroglycerin. It took about half an hour to go away after the third one. Since he has been in the ER, he has not had any more chest pains. They have done a total of 3 troponins. All of them are negative. His CPK initially was 209. The 2nd one was 72. ProBNP level is 2089 mcg/mL per normal is up to 229. His creatinine is 1.6 and 1.5. The patient weighs 330 pounds. His body mass index is 38.1. The patient denies having dyspnea. He is not very active at home on account of knee arthritis. This morning, he has completed a stress test and it shows ischemia of inferior wall. He is just comfortably sitting in bed. is at the bedside. Apparently, the patient has some memory issues. PAST MEDICAL HISTORY: Positive for coronary heart disease. Previous surgical coronary revascularization. He has hypertension. He has some diastolic heart failure. He has persistent/permanent atrial fibrillation. He has been on anticoagulants. He has diabetes mellitus type 2, hypertension, hyperlipidemia, chronic kidney disease. A remote history of lung cancer. He has had also esophageal strictures, diverticulosis and lately he has been diagnosed with dementia. SURGICAL HISTORY: He has had bypass x2, mammary graft to LAD and vein graft to marginal system in 2002. Previously, he had a stent to the right coronary artery. He has had back surgery x3. He had right forearm amputation. He has had esophageal dilatation, shoulder surgery, right ankle surgery, cholecystectomy, and right toe amputation. SOCIAL HISTORY: He is , retired. He worked at [employer]. He retired in 2000. He quit smoking a long time ago. FAMILY HISTORY: Negative. ALLERGIES: Bacitracin, neomycin, polymyxin. HOME MEDICATIONS: Include apixaban 2.5 twice a day, aspirin 81 daily, atorvastatin 20 daily, divalproex 125 twice a day, folic acid 1 mg daily, furosemide 40 mg daily, hydralazine 25 three times a day, isosorbide mononitrate 60 mg daily, labetalol 400 three times a day, losartan 50 mg daily, Seroquel 50 mg at bedtime, Ranexa 500 twice a day, spironolactone 25 daily, Restoril 30 mg at bedtime, trazodone 50 mg at bedtime. REVIEW OF SYSTEMS: He is basically limited because of knee arthritis. He cannot do much. He has gained weight daily. He gets short of breath with [id number] activity. His chest pains usually happen once every couple weeks. Lately they have been happening 2 or 3 times a week. The patient had a heart catheterization at the [facility] in December of this year and Dr. Marks noted that the vein grafts and the mammary graft were patent. However, the patient had a stenosis of the right coronary artery in the midportion. They chose to treat the patient conservatively because of concerns about his general health and other things. Additional review of systems, he used to snore in the past. He is not doing that anymore. PHYSICAL EXAMINATION: Vital signs: Blood pressure is 153/86, temperature 98.4 degrees, pulse 102, respirations 20. He is awake, alert, oriented, in no distress. Obese. HEENT: Unremarkable. Chest: Sounds clear to auscultation and percussion. Heart: Sounds are irregularly irregular, distant. Abdomen: Obese. Nontender. Extremities: Show good pulses. No peripheral edema. Neurological: He follows commands. Moves 4 extremities. He has amputation of the right forearm. His EKG shows atrial fibrillation with a question of an inferior scar. This is a lot of artifact. Chest x-ray done at the time of presentation showed bilateral fibrotic opacities in the right mid lower lung field and left lower lung field. Echocardiogram done yesterday shows excellent ejection fraction 65 to 70 percent. No significant valvular abnormality. IMPRESSION: 1. Patient presented with chest pain. This is angina pectoris, probably crescendo pattern. He does have an abnormal myocardial perfusion stress test showing moderately severe inducible ischemia of the inferior wall of the left ventricle on top of a relatively small scar. That is consistent with the angiographic finding of a stenosis within the right coronary artery distribution. 2. Previous bypass surgery x2. 3. Obesity. 4. Permanent atrial fibrillation. 5. Hyperlipidemia. 6. Hypertension. 7. Dementia. RECOMMENDATION: At this time, I would suggest to up titrate his Lipitor to get LDL cholesterol below 74, up-titrate Ranexa to a 1000 mg twice a day and also up titrate his Eliquis to 5 mg twice a given the fact that he carries a weight of 330 pounds, making his GFR much greater than the 1 estimated. We will observe his course probably overnight and if he is stable, he may get to go home tomorrow and then discuss as an outpatient the possibility of doing a heart catheterization with Dr. Rodri Marks at the [facility]. cc: Igor Fernandes MD
--- NOTE | 2019-09-29 16:38 | PROGRESS NOTE ---
DATE: 09/29/2019 SUBJECTIVE: No acute events overnight. This patient was not complaining of chest pain or shortness of breath. He had a stress test done. Cardiology will evaluate this patient. OBJECTIVE: Vital Signs: Temperature 98.4 degrees, pulse 95, respiratory rate 18, blood pressure 138/77, saturation 98 on room air. HEENT: Head normocephalic. No trauma. PERRLA. Neck: Supple. No JVD, no masses. Central trachea. Cardiovascular: Irregularly irregular rhythm. Chest: Clear to auscultation. No wheezing, no rales. Some decreased breath sounds at the bases. Abdomen: Soft, nontender, nondistended. No hepatosplenomegaly. Extremities: Generalized edema, no clubbing, no cyanosis. Right hand amputation and right ankle deformity. Neurological: No focal deficits but I do believe he has a baseline cognitive disorder/dementia. LABORATORY: WBC 6.1, hemoglobin 12.3, hematocrit 37.4, platelets 165,000. Sodium 140, potassium 4.3, chloride 100, bicarbonate 27, BUN 17, creatinine 1.5, glucose 143, calcium 9.7, AST 22, ALT 13, alkaline phosphatase 79. Troponins negative x3. Albumin 4. ASSESSMENT AND PLAN: 1. Chest pain in a patient with known history of coronary artery disease with coronary artery bypass graft in the past, as per the he has been having more frequent chest pain pressure- like and they get better with nitroglycerin, he has been having chest pain even at rest, cardiac workup has been performed including echocardiogram and stress test, Cardiology Department has been consulted. I will wait for recommendations. 2. Chronic atrial fibrillation, rate controlled. Continue with same management. 3. Hypertension. Continue home medication. 4. Congestive heart failure. Echocardiogram showed an excellent ejection fraction but the stress test showed a mildly reduced ejection fraction, I will wait for more recommendations. I will continue with his home Lasix. 5. Type 2 diabetes. Continue with same management for now. 6. Chronic kidney disease stable. 7. Likely this patient has dementia that has been going on for at least 1 year and as per the this is getting worse. cc: Mg Earl MD
[2019-09-29] MEDS: ASPIRIN EC PO SCH (20:30)
[2019-09-29] MEDS: SEROQUEL PO SCH (20:30)
[2019-09-29] MEDS: DESYREL PO SCH (20:30)
[2019-09-29] MEDS: RESTORIL PO SCH (20:37)
[2019-09-29] MEDS ORDERED: LIPITOR PO SCH ×2 (21:00)
[2019-09-30] MEDS: PRILOSEC PO SCH (06:03)
[2019-09-30 08:01] VITALS: BP 158/92
[2019-09-30] MEDS: ALDACTONE PO SCH (08:25)
[2019-09-30] MEDS: IMDUR PO SCH (08:26)
[2019-09-30] MEDS: TRANDATE PO SCH (08:26)
[2019-09-30] MEDS: DEPAKOTE SPRINKLE PO SCH (08:26)
[2019-09-30] MEDS: CENTRUM SILVER PO SCH (08:26)
[2019-09-30] MEDS: COZAAR PO SCH (08:26)
[2019-09-30] MEDS: LASIX PO SCH (08:26)
[2019-09-30] MEDS: FOLIC ACID PO SCH (08:26)
[2019-09-30] MEDS: APRESOLINE PO SCH (08:26)
[2019-09-30] MEDS: RANEXA PO SCH (08:26)
[2019-09-30] MEDS: ELIQUIS PO SCH (08:27)
[2019-09-30 08:33] LABS: CALCIUM 9.5 mg/dL (8.8-10.2); CREATININE 1.5 mg/dL (0.7-1.2); POTASSIUM 4.1 mmol/L (3.5-5.1)
--- NOTE | 2019-10-01 00:21 | DISCHARGE SUMMARY ---
ADMISSION DATE: 09/28/2019 DISCHARGE DATE: 09/30/2019 DISCHARGE DIAGNOSES: 1. Chest pain in a patient with history of coronary artery disease with CABG. 2. Chronic atrial fibrillation. 3. Hypertension. 4. Congestive heart failure. 5. Type 2 diabetes. 6. Chronic kidney disease. HISTORY: Cardiology Department evaluated this patient and they state that this patient presented with chest pain. This is angina pectoris, probably crescendo pattern. He does have an abnormal myocardial perfusion stress test showing moderately severe inducible ischemia of the inferior wall of the left ventricle on top of a relatively small scar, that is consistent with the angiographic findings of a stenosis within the right coronary artery distribution. Cardiology Department suggested to titrate his Lipitor to get the LDL cholesterol below 74, increase Ranexa to 1000 mg twice a day and, also, Eliquis 5 mg twice a day given his weight and GFR and age. PROCEDURES PERFORMED: 1. Chest x-ray dated 09/28/2019. Impression: Bilateral fibrotic opacities, cardiomegaly. 2. Echocardiogram dated 09/28/2019: Summary: Excellent left ventricular systolic function, pulmonary pressure estimated in the range of 48 to 53 mmHg, moderately enlarged left atrium and moderately enlarged right atrium, sclerosis of the aortic valve without stenosis. 3. Chest x-ray dated 09/29/2019. Impression: Essentially stable chest. 4. Nuclear stress test dated 09/29/2019: No evidence of abnormal extracardiac uptake, TID ratio is 1.10. The perfusion images demonstrate a moderate sized defect located in the future apical, mid inferior and basal inferior segments, this defect is mild in intensity on rest, worsening to moderately to intensity on stress, suggesting a baseline defect with a moderate burden of ischemia on top, the ejection fraction appears to be mildly reduced at 49%, end- diastolic volume is 130, and systolic volume of 67, there appear to be inferior wall hypokinesis on this study. CONSULT: Cardiology Department, Dr. Fernandes. HOSPITAL COURSE: A 74-year-old male admitted on 09/28/2019, with a past medical history of chronic atrial fibrillation, coronary artery disease status post CABG, CHF, hypertension, MS, asthma, sleep apnea, diabetes, not on any medication, melanoma. The patient thought he had an appointment and was about to go home. He did not know he was brought in for chest pain, however, states that the morning of admission around 11 a.m., he was complaining of chest pain. He took 3 nitroglycerin and brought him to the emergency department. Initially, he did not remember the episode, but after she remind him he remembered the episode. However, he was not really able to describe the chest pain to us. When I evaluated this patient, I asked him why he was here, he told me to ask to his because he feels fine. I do believe we are dealing with some dementia. He was hospitalized and placed on telemetry. Since the moment of admission he never complained of chest pain. We did a nuclear stress test that basically was abnormal, as per Cardiology Department, this patient presented with angina pectoris, probably crescendo pattern. He does have an abnormal myocardial perfusion stress test showing moderately severe inducible ischemia of the inferior wall on the left ventricle, on top of a relatively small scar that is consistent with the angiographic finding of a stenosis within the right coronary artery distribution, so Cardiology Department recommended to modify some of the medications, including his Lipitor, Ranexa and Eliquis. We observed the patient overnight and this patient did great, no chest pain. He was completely awake, alert, and oriented today but, of course, he has a baseline confusion due to probably dementia. We will discharge this patient home. I talked to the family, including his son and , they were at the bedside. I gave them the prescription for Ranexa and Eliquis, and I told them that probably this patient needs a heart catheterization by Dr. Rodri Marks at the [facility] and they agree with that. At the moment of discharge, the patient was in a stable medical condition, tolerating p.o. and without any more chest pain. PHYSICAL EXAMINATION: Vital signs: Temperature 97.7 degrees, pulse 92, respiratory rate 14, blood pressure 158/92, oxygen saturation 97% on room air. HEENT: Head normocephalic, atraumatic. PERRLA. Neck: Supple. No JVD. No masses. Central trachea. Chest: Clear to auscultation. No wheezing, no rales. Cardiovascular: Irregularly irregular rate and rhythm. Abdomen: Soft, nontender, nondistended. No hepatosplenomegaly. Extremities: Some lower extremity edema. No clubbing, no cyanosis. Right hand amputation and right ankle deformity. Neurological: No focal deficits but it looks like he has a baseline cognitive disorder/dementia. LABORATORY: Sodium 139, potassium 4.1, chloride 99, bicarbonate 24, BUN 20, creatinine 1.5. Glucose 166, calcium 9.5. DISCHARGE MEDICATIONS: Eliquis 5 mg p.o. b.i.d., Lipitor 20 mg p.o. daily, aspirin 81 mg p.o. at bedtime, divalproex sodium 125 mg p.o. b.i.d., folic acid 1 mg p.o. daily, furosemide 40 mg p.o. daily, hydralazine 25 mg p.o. t.i.d., Imdur 60 mg p.o. daily, Losartan 50 mg p.o. daily, labetalol 400 mg p.o. t.i.d., Centrum Silver daily, nitroglycerin 0.4 mg sublingual as needed for chest pain, omeprazole 40 mg p.o. daily, Mcdonald 10 as directed, quetiapine 50 mg p.o. at bedtime, Ranexa 1000 mg p.o. b.i.d., spironolactone 25 mg p.o. daily, temazepam 30 mg p.o. at bedtime and trazodone 50 mg p.o. at bedtime. TIME SPENT: Discharging this patient and discussing with the family all the results and follow- ups around 30 minutes. cc: Mg Earl MD
== END 2019-09-30 10:39 | disposition home or self-care (01) ==
LOC: EDIPHOLD 12:22 → ED 12:22 → 3N 18:08
PROVIDERS: ATTEND Internal Medicine

== ENCOUNTER 2020-01-01 17:41 | Inpatient (IN) ==
[2020-01-01] MEDS ORDERED: ASPIRIN PO ONE (17:47)
--- NOTE | 2020-01-01 18:21 | PROVIDER DOCUMENTATION ---
HPI-Chest Pain - General Chief Complaint: Chest Pain Stated Complaint: CP/HEART PT Time Seen by Provider: 01/01/20 18:20 Source: patient Allergies/Adverse Reactions: Patient Allergies Allergy/AdvReac Type Severity Reaction Status Date / Time bacitracin Allergy Intermediate RASH Verified 09/28/19 12:48 [From Neosporin ([id number])] bacitracin zinc * Allergy Intermediate RASH Verified 09/28/19 12:48 [From Neosporin ([id number])] neomycin sulfate * Allergy Intermediate RASH Verified 09/28/19 12:48 [From Neosporin ([id number])] polymyxin B Allergy Intermediate RASH Verified 09/28/19 12:48 [From Neosporin ([id number])] Home Medications: Home Medication List Medication Instructions Recorded Confirmed Last Taken Type Labetalol [Trandate] 200 mg PO TID 08/20/13 01/01/20 09/28/19 History Omeprazole [Prilosec] 40 mg PO DAILY 08/20/13 01/01/20 08/17/19 History ATORVAstatin [Lipitor] 20 mg PO DAILY 05/06/17 01/01/20 08/17/19 History Nitroglycerin 0.4 mg SL PRN PRN 05/06/17 01/01/20 09/28/19 History Furosemide [Lasix] 40 mg PO DAILY tablet 05/16/17 01/01/20 09/28/19 Rx Losartan [Cozaar] 50 mg PO DAILY tablet 05/16/17 01/01/20 08/17/19 Rx Spironolactone [Aldactone] 25 mg PO DAILY #30 tablet 05/16/17 01/01/20 08/17/19 Rx Temazepam [Restoril] 30 mg PO QHS #30 capsule 05/16/17 01/01/20 09/27/19 Rx Quetiapine [Seroquel] 50 mg PO QHS 07/06/17 01/01/20 09/27/19 History Trazodone [Desyrel] 50 mg PO QHS 07/06/17 01/01/20 09/27/19 History Aspirin [Aspir-Low] 81 mg PO HS 08/18/19 01/01/20 09/27/19 History Divalproex Sodium 125 mg PO BID 08/18/19 01/01/20 09/28/19 History Folic Acid 1 mg PO DAILY 08/18/19 01/01/20 09/27/19 History Oxycodone HCl/Acetaminophen 1 tab PO BID PRN PRN 08/18/19 01/01/20 Unknown History [Oxycodone-Acetaminophen 10-325] Hydralazine [Apresoline] 25 mg PO TID 09/28/19 01/01/20 09/28/19 History Apixaban [Eliquis] 5 mg PO BID #60 tab 09/30/19 01/01/20 Unknown Rx Ranolazine E.r. [Ranexa] 1,000 mg PO BID #120 tab 09/30/19 01/01/20 Unknown Rx Cyanocobalamin/Folic Acid [Vitamin 1 tab PO DAILY 01/01/20 01/01/20 Unknown History E50-Khbjy Acid Tablet] Isosorbide Mononitrate [Isosorbide 60 mg PO DAILY 01/01/20 01/01/20 Unknown History Mononitrate ER] Multivitamins/Minerals [Centrum 1 tab PO DAILY 01/01/20 01/01/20 Unknown History Silver] - History of Present Illness-CP Nature of Presenting Problem: 74 year old male pmh significant for lung CA currently in remission presenting to the ED today stating he was having some substernal chest pain earlier today t hat was relieved after taking 3 SL nitro's. The patient states he is currently asymptomatic and feeling well, but thought he should get checked out anyways. The patient has a PMH of chronic atrial fibrillation for which he takes Elliquis for, denies any history of DVT or PE, and denies any recent travel. Review of Systems - Adult - REVIEW OF SYSTEMS - ADULT Constitutional: reports: cherrie. denies: chills, fever, night sweats Eyes: denies: blurred vision, double vision Ears, Nose, Mouth & Throat: reports: no symptoms reported Cardiovascular: reports: chest pain (resolved), irregular heart rate (chronic rate controlled atrial fibrillation) Respiratory: reports: chronic cough. denies: dyspnea on exertion, excessive sputum production, shortness of breath, wheezing Gastrointestinal: denies: abdominal pain, constipation, diarrhea, nausea, vomiting Genitourinary: denies: dysuria, frequency, flank pain, frequent UTI's, hematuria, urinary retention, urgency Musculoskeletal: reports: no symptoms reported Integumentary: reports: no symptoms reported Neurological: denies: ataxia, dizziness/vertigo, headache/migraines, loss of balance, numbness, paresthesia, slurred speech, syncope Psychiatric: reports: no symptoms reported Endocrine: reports: no symptoms reported Hematologic/Lymphatic: reports: no symptoms reported Allergic/Immunologic: reports: no symptoms reported All Other Systems: Reviewed and Negative Past History - Adult - PAST MEDICAL HISTORY-ADULT Review of Records: reports: Old Records Reviewed, Nursing Assessment Review, Medications Reviewed, Social history reviewed & non-contributory. Major Childhood Illnesses: reports: denies history Cardiovascular: reports: cardiac disease, A-Fib, CAD, HTN, NC Respiratory: reports: sleep apnea Gastrointestinal: reports: denies history Obstetrical/Gynecological: reports: denies history Genitourinary: reports: denies history Musculoskeletal: reports: denies history Neurological: reports: denies history Endocrine/Immune: reports: Diabetes Other Conditions: reports: other cancer (melanoma) - PRIOR SURGERIES/PROCEDURES Surgical/Procedure History: reports: CABG, cardiac stent, orthopedic (extremity) (RUE amputation) - IMMUNIZATION STATUS Childhood Immunizations: See Nurse Assessment Flu Vaccine: See Nurse Assessment - FAMILY HISTORY Family History: reviewed, not pertinent - SOCIAL HISTORY Smoking: quit greater than 1 year Substance Use: none/never Alcohol Use Frequency: never Physical Exam-General - PHYSICAL EXAM-ADULT Initial Vital Signs Reviewed: Yes (stable) - CONSTITUTIONAL General Appearance: appears well, alert, no apparent distress - EYES Eyes: negative: meningismus - HEAD, EARS, NOSE, MOUTH & THROAT HENMT: normocephalic/atraumatic, TMs normal. negative: moist mucous membranes (dry mucous membranes) - NECK Neck: non-tender, full range of motion, supple, normal inspection. negative: Brudzinski's sign - RESPIRATORY Respiratory: chest non-tender, decreased breath sounds (in lower lobes bilaterally), prolonged expiration. negative: crackles, rales, rhonchi, wheezing - CARDIOVASCULAR Cardiovascular: no gallop, no JVD, irregularly irregular. negative: no edema (1+ pretibial edema bilaterally) - GASTROINTESTINAL (ABDOMEN) Abdominal Exam: non tender, soft - MUSCULOSKELETAL Back Exam: normal inspection Extremity: normal range of motion, normal gait, pedal edema (1+ pretibial edema bilaterally), other (right hand amputation from industrial work accident.) Peripheral Pulses: radial (R): 2+, radial (L): 2+ - SKIN Integumentary: normal color, warm/dry. negative: normal turgor (poor turgor) - NEUROLOGIC Neurologic: grossly normal - PSYCHIATRIC Psych/Mental Status: normal mood/affect, normal thought content, normal thought process, oriented x 3 - HEART Score HEART Score: History: Moderately Suspicious HEART Score: ECG: Non-Specific Repolarization Disturbance/LBBB/PM HEART Score: Age: > or = 65 Years HEART Score: Risk Factors for Atherosclerotic Disease: > or = 3 Risk Factors or History of Atherosclerotic Disease Progress - PLAN OF CARE/RESULTS Progress/Plan/Lab Results: Vital Signs - 8 hr 01/01/20 17:44 01/01/20 20:44 Temperature 97.9 F Pulse Rate 90 90 Respiratory Rate 18 22 Blood Pressure 159/85 O2 Sat by Pulse Oximetry 98 98 Laboratory Results - last 24 hr 01/01/20 01/01/20 01/01/20 20:10 20:10 20:10 WBC 6.65 RBC 3.60 L Hgb 12.0 L Hct 36.4 L MCV 101.1 H MCH 33.3 H MCHC 33.0 RDW Std Deviation 13.7 Plt Count 170 MPV 10.7 H Immature Gran % (Auto) 0.3 Neut % (Auto) 57.6 Lymph % (Auto) 19.1 L Weakley % (Auto) 10.8 H Eos % (Auto) 11.9 H Baso % (Auto) 0.3 Immature Gran # (Auto) 0.02 Neut # (Auto) 3.83 Lymph # (Auto) 1.27 Weakley # (Auto) 0.72 H Eos # (Auto) 0.79 H Baso # (Auto) 0.02 PT INR PTT (Actin FS) Specimen Type Sample Site pH pCO2 pO2 HCO3 Base Excess Oxyhemoglobin ABG O2 Sat (Calculated) ABG O2 Saturation ABG Carboxyhemoglobin ABG Methemoglobin Cuate Test A-a O2 Difference Total Hemoglobin Lactate Blood Gas Modality FiO2 % Sodium 141 Potassium 5.0 Chloride 102 Carbon Dioxide 28 Anion Gap 11 BUN 21 Creatinine 1.7 H Estimated GFR/1.73 m2 40 BUN/Creatinine Ratio 12 Glucose 133 H Calculated Osmolality 286 Calcium 9.3 Total Bilirubin 0.42 AST 13 ALT 12 Alkaline Phosphatase 81 Creatine Kinase 62 Troponin T High Sens [id number]-A-[id number] Pept 1432 H Total Protein 6.8 Albumin 3.9 Globulin 2.9 Albumin/Globulin Ratio 1.3 01/01/20 01/01/20 01/01/20 20:10 20:10 20:15 WBC RBC Hgb Hct MCV MCH MCHC RDW Std Deviation Plt Count MPV Immature Gran % (Auto) Neut % (Auto) Lymph % (Auto) Weakley % (Auto) Eos % (Auto) Baso % (Auto) Immature Gran # (Auto) Neut # (Auto) Lymph # (Auto) Weakley # (Auto) Eos # (Auto) Baso # (Auto) PT 13.6 INR 1.03 PTT (Actin FS) 29.8 Specimen Type ARTERIAL Sample Site R RADIAL pH 7.41 pCO2 44 pO2 90 HCO3 27.1 H Base Excess 2.8 Oxyhemoglobin 95.8 ABG O2 Sat (Calculated) 16.3 ABG O2 Saturation 98.3 ABG Carboxyhemoglobin 1.30 ABG Methemoglobin 1.2 Cuate Test YES A-a O2 Difference 5.0 Total Hemoglobin 12.0 Lactate 1.30 Blood Gas Modality ROOM AIR FiO2 % 21.0 Sodium Potassium Chloride Carbon Dioxide Anion Gap BUN Creatinine Estimated GFR/1.73 m2 BUN/Creatinine Ratio Glucose Calculated Osmolality Calcium Total Bilirubin AST ALT Alkaline Phosphatase Creatine Kinase Troponin T High Sens 25 H [id number] Pept Total Protein Albumin Globulin Albumin/Globulin Ratio Orders Category Date Time Status Cardiac Monitoring DIRECTED Care 01/01/20 17:47 Active Oxygen Therapy- ED Nursing DIRECTED Care 01/01/20 17:47 Active Saline Loc NOW Care 01/01/20 17:47 Active CHEST-2 VIEWS [RAD] Stat Exams 01/01/20 17:47 Completed ABG [RESP] Routine Lab 01/01/20 20:15 Completed CBC WITH ELECTRONIC DIFF [HEME] Stat Lab 01/01/20 20:10 Completed CK PROFILE [SP CHEM] Stat Lab 01/01/20 20:10 Completed COMPREHENSIVE METABOLIC PANEL [CHEM] Stat Lab 01/01/20 20:10 Completed PRO B-NATRIURETIC PEPTIDE Stat Lab 01/01/20 20:10 Completed PROTIME WITH INR [COAG] Stat Lab 01/01/20 20:10 Completed PTT [COAG] Stat Lab 01/01/20 20:10 Completed TROPONIN T HIGH SENSITIVITY Stat Lab 01/01/20 20:10 Completed 0.9% Sodium Chloride Inj [Ns] 1,000 ml Med 01/01/20 21:08 Discontinued IV 999 mls/hr Albuterol 2.5MG/Ipratrop 0.5MG [Duoneb (A & A)] Med 01/01/20 20:24 Discontinued 3 ml INH NOW ONE Aspirin Med 01/01/20 22:18 Discontinued 325 mg .ROUTE .STK-MED ONE Aspirin Med 01/01/20 17:47 Discontinued 325 mg PO NOW ONE Azithromycin 500 mg/Ns [Zithromax 500 mg/Ns] Med 01/01/20 20:24 Discontinued 500 mg in 250 ml IV NOW CefTRIAXONE [Rocephin] Med 01/01/20 21:53 Discontinued 1 gm .ROUTE .STK-MED ONE CefTRIAXONE [Rocephin] 1 gm Med 01/01/20 19:11 Discontinued 0.9% Sodium Chloride Inj [Ns] 50 ml IV NOW Aerosol Treatments Routine Oth 01/01/20 20:24 Completed Aerosol Treatments Stat Oth 01/01/20 20:24 Completed CP/SOB/Palp >45 yrs of Age Stat Oth 01/01/20 17:47 Ordered EKG [EKG] Stat Ther 01/01/20 17:47 Draft Patient's BNP is elevated with no prior to compare to. Possible exacerbation of SCHF contributing to the patient's chest pain. 2154: Dr. Li now paged for the 3rd time. Result Diagrams: 01/01/20 20:10 01/01/20 20:10 - EKG 1 Time of EKG reading by physician:: 17:56 EKG Read and Signed by:: Yadiel Villeda EKG Interpretation (*Must complete 3 of following elements*): Abnormal Rate: 84 (A. fib rate controlled) [place]: normal QRS: LVH ST Wave: non-specific ST changes Prior EKG Comparison: no prior EKG Comments: A. fib rate controlled, LVH, non-specific T-wave changes anterolateral - XRAY 1 XRAY Study: Chest Impression: Abnormal (EXAM: CHEST-2 VIEWS INDICATION: cp TECHNIQUE: 3 views COMPARISON: 09/29/2019 FINDINGS: There is vague airspace consolidation at the right lower lung zone suggesting pneumonia. It is slightly nodular, however. Follow-up is recommended to assure resolution. There is platelike atelectasis in the left midlung zone. There is no discrete pleural fluid collection or pneumothorax. There are stable CABG changes. There is no cardiomegaly. Central vasculature is unremarkable. IMPRESSION: Vague consolidation is somewhat nodular in the right lower lung zone and platelike atelectasis in the left midlung zone. Please see above discussion. Electronically signed by Estuardo Perry 01/01/2020 6:18 PM 01/01/201817 Interpreting Physician: Estuardo Perry MD Dictated Date/Time: 01/01/201814 cc: Yadiel Villeda MD; Sky Flores MD) - CONSULTS/PCP/HOSPITALIST Notification #1 *Consult/PCP/Hospitalist*: Dr. Li Time Discussed: 22:34 (Accepted inpatient admit) Reason/Comments: Right lower lobe PNA Consult Disposition: Will see in ED, Admit Departure - Departure Date of Disposition Decision: 01/01/20 Time of Disposition Decision: 21:56 (Admit inpatient) DIAGNOSIS: Right lower lobe consolidation, Macrocytic anemia Atrial fibrillation Qualifiers: Atrial fibrillation type: longstanding persistent Qualified Code(s): I48.11 - Longstanding persistent atrial fibrillation Chest pain Qualifiers: Chest pain type: unspecified Qualified Code(s): R07.9 - Chest pain, unspecified Disposition: ADMITTED INPATIENT 09 Certified Medical Emergency: Emergent Condition: Fair Referrals and Follow-Ups: Sky Flores MD [Primary Care Provider] - - Critical Care Note This patient required my direct & personal management of CC.: Yes Total Time (mins): 65 Critical Care Statement: This patient required my direct personal management to treat or rule out processes, the absence of which, could potentiallly result in sudden, clinically significant life or limb threatening deterioration. Comments: 65 minutes of critical care time was spent with this patient to prevent respiratory and cardiovascular deterioration. Attestation - Physician/ JONH Attestation Patient care was provided by Advanced Practice Provider:: No The physician spent face to face time with patient:: Yes Advanced Practice Provider documentation review:: Supervising physician onsite and consulted in the evaluation and care of this patient. The physician did have a face to face encounter with the patient.
--- NOTE | 2020-01-01 18:36 | EKG Report ---
Test Performed on : 01/01/2020 5:51:37 PM Test Reason : cp Blood Pressure : / mmHG Vent. Rate : 084 BPM Atrial Rate : 326 BPM P-R Int : 000 ms QRS Dur : 100 ms QT Int : 392 ms P-R-T Axes : 000 -11 -22 degrees QTc Int : 463 ms Atrial fibrillation. Minimal voltage criteria for LVH, may be normal variant Cannot rule out Anteroseptal infarct , age undetermined Abnormal ECG When compared with ECG of 29-SEP-2019 07:14, Minimal criteria for Anteroseptal infarct are now present Nonspecific T wave abnormality has replaced inverted T waves in Inferior leads Nonspecific T wave abnormality has replaced inverted T waves in Lateral leads Unconfirmed Result
[2020-01-01] MEDS ORDERED: ROCEPHIN 1 GM in NS 50 ML IV ONE (19:11)
[2020-01-01 20:24] LABS: ALLEN TEST YES; BE 2.8 mmoll (-3.0-3.0); BLOOD TYPE ARTERIAL; HCO3-(ACT) 27.1 mmoll (20.0-26.0); METHB 1.2 % (0.0-1.5); O2(CT) 16.3 mL/dL (15.0-23.0); O2HB 95.8 % (95.0-99.0); PCO2(98.6) 44 mmHg (35-45); PO2(98.6) 90 mmHg (60-100); SAMPLE BLOOD; SAO2 98.3 % (95.0-100.0); pH(98.6) 7.41 (7.35-7.45)
[2020-01-01] MEDS ORDERED: DUONEB (A & A) INH ONE (20:24)
[2020-01-01] MEDS ORDERED: ZITHROMAX 500 MG/NS 500 MG/250 ML IVPB IV ONE (20:24)
[2020-01-01 20:25] LABS: MODALITY ROOM AIR
[2020-01-01 20:34] LABS: BASO# 0.02 X1000 (0.0-0.2); BASO% 0.3 % (0.0-0.8); EOS# 0.79 X1000 (0.0-0.7); EOS% 11.9 % (0.0-10.0); HEMATOCRIT 36.4 % (42.0-52.0); IMM GRAN# 0.02 X1000 (0.0-0.04); IMM GRAN% 0.3 % (0.0-0.5); LYMPH# 1.27 X1000 (1.2-3.4); LYMPH% 19.1 % (20.5-51.1); MCH 33.3 PG (27-31); MCV 101.1 FL (81-99); MONO# 0.72 X1000 (0.11-0.59); MONO% 10.8 % (1.7-9.3); MPV 10.7 FL (7.4-10.4); NEUT# 3.83 X1000 (1.4-6.5); NEUT% 57.6 % (42.2-75.2); PLT 170 X1000 (130-400); RDW 13.7 % (11.5-14.5); WBC 6.65 X1000 (4.8-10.8)
[2020-01-01 20:44] LABS: INR 1.03; PROTIME 13.6 Seconds (11.0-16.0); PTT 29.8 Seconds (22.3-41.8)
[2020-01-01 20:52] LABS: ALB/GLOB RATIO 1.3; ALBUMIN 3.9 g/dL (3.5-5.0); CALCIUM 9.3 mg/dL (8.8-10.2); CREATININE 1.7 mg/dL (0.7-1.2); TOTAL BILIRUBIN 0.42 mg/dL (0.20-1.00); TOTAL PROTEIN 6.8 g/dL (6.3-8.3)
[2020-01-01] MEDS ORDERED: NS 1,000 ML IV ONE (21:08)
[2020-01-01] MEDS ORDERED: ROCEPHIN ONE (21:53)
[2020-01-01] MEDS ORDERED: ASPIRIN ONE (22:18)
[2020-01-01] MEDS ORDERED: ZITHROMAX 500 MG/NS 500 MG/250 ML IVPB IV SCH (23:52)
[2020-01-01] MEDS ORDERED: NITROGLYCERIN SL PRN (23:52)
[2020-01-01] MEDS ORDERED: PERCOCET-10 PO PRN (23:52)
[2020-01-01] MEDS ORDERED: TYLENOL PO PRN (23:52)
[2020-01-02] MEDS: DUONEB (A & A) INH SCH ×5 (03:27→22:04)
--- NOTE | 2020-01-02 04:57 | HISTORY AND PHYSICAL ---
PRIMARY CARE PHYSICIAN: Sky Flores MD. REASON FOR ADMISSION: Right-sided chest pain. HISTORY OF PRESENT ILLNESS: Mr. Ismael Dueñas is a 73-year-old male with a past medical history of chronic atrial fibrillation, coronary artery disease, diastolic heart failure, hypertensive heart disease, type 2 diabetes, prior melanoma, status post CABG and stent placement. He comes today complaining of a 2 to 3 day history of right chest pain which is nonradiating. He says the pain has been constant and with no specific aggravating or relieving factors. No associated anginal type symptoms with this. He says he has had a dry cough but it is not pleuritic in nature. He denies any fever, chills, shortness of breath, leg swelling, PND, orthopnea, palpitations, or lightheadedness. REVIEW OF SYSTEMS: No GI or complaints. No polyuria or polydipsia. No focal neurological complaints. Otherwise a 12 system review was done with positive findings per HPI. ALLERGIES: He is allergic to bacitracin, Neosporin. HOME MEDICATIONS: He is on Eliquis 5 mg b.i.d., aspirin 81 mg daily, atorvastatin 420 mg daily, multivitamin tablets once a day, divalproex 125 mg b.i.d., folic acid 1 mg daily, furosemide 40 mg daily, hydralazine 25 mg t.i.d., Imdur 60 mg daily, labetalol 200 mg t.i.d., Cozaar 50 mg daily, omeprazole 40 mg daily, sublingual nitroglycerin p.r.n. 0.4 mg, oxycodone 10 mg b.i.d., Seroquel 50 mg at bedtime, Ranexa 1000 mg b.i.d., spironolactone 25 mg daily, Restoril 30 mg at bedtime, trazodone 50 mg at bedtime. PAST SURGICAL HISTORY: She has had CABG, stent placement, back surgery, right hand amputation secondary to an industrial accident. FAMILY HISTORY: Notable for diabetes in son, heart disease in first-degree relatives. SOCIAL HISTORY: He does not smoke, drink or use drugs. He lives with his . LABORATORY DATA: White count 6000, H H is 12 and 36, MCV 101, platelet count is 170,000. Eosinophils 12, BUN is 21, creatinine is 1.7, glucose is 133. Troponin is 25. CK is normal. ProBNP 1400. PT/PTT is normal. Blood gas is PH of 7.41, pCO2 of 44, PO2 of 90, this is on room air. Chest film showed vague consolidation somewhat nodular in the right lower lung area, and platelike atelectasis in the mid lung zone. IMAGING: EKG: Atrial fibrillation with left axis deviation, nonspecific ST-wave changes in the inferior leads. Borderline LVH criteria noted. PHYSICAL EXAMINATION: GENERAL: An obese elderly white male, not in acute distress. AAO x3. Normal mood and affect. VITAL SIGNS: Blood pressure is 133/75, heart rate is 75, respirations 19, temperature is 97.9 degrees, O2 saturation is 100% on room air. HEENT: Head: Normocephalic, atraumatic. Eyes: SHAKEEL, EOMI. He is anicteric. Not pale. ENT exam is grossly normal. NECK: Supple. NECK: Short and thick. No JVD or carotid bruit. No thyromegaly. CHEST: Surprisingly is clear when auscultated with good air entry in the bases. CARDIOVASCULAR: First and second sounds heard. No gallops, murmurs or rubs. Rhythm is regular. ABDOMEN: Protuberant, soft, nontender. No organomegaly. Bowel sounds are normal. RECTAL: Examination is deferred at this time. EXTREMITIES: No edema, clubbing or cyanosis. Good distal pulse volumes. Irregular but symmetrical. NEUROLOGICAL: No gross focal deficits. No tremors. SKIN: Intact. No breakdown, lesion or erythema. Skin examination is grossly normal. ASSESSMENT: 1. Right lower lobe pneumonia. 2. Carotid artery disease. 3. Atrial fibrillation. 4. Hypertensive heart disease. 5. Type 2 diabetes. PLAN: The patient will be started on community-acquired pneumonia regimen, i.e. Zithromax and Rocephin with p.r.n. nebulizer treatments. I did medication reconciliation and resumed all appropriate medications. I have ordered a CT thorax without contrast due to the questionable findings on the x-ray to get a clearer picture of what we are actually dealing with. I anticipate a 2 day stay for this admission. The patient does have microcytic anemia also and a test will be ordered regarding this. cc: OlakMD Sky Cruz MD
--- NOTE | 2020-01-02 07:18 | Diag Imaging Result Doc PS360 ---
EXAM: CT THORAX W/O CONTRAST 01/01/2020 HISTORY: probable PNA TECHNIQUE: This exam was performed using automated exposure control, adjustment of mA or kV according to patient size, and/or use of iterative reconstruction technique. COMMENT: There is extensive coronary calcification. There are granulomatous calcifications in the liver and spleen. No abnormal fluid collections are present. There is some subpleural emphysematous change. There is an ill-defined nodular opacity in the left upper lobe on image 53 which was not present at the time the previous examination of 06/07/2017. This measures almost 24 mm in diameter. Several smaller nodules are present around image 65 in the lingula which were apparently present previously. The nodule which was previously present in the superior segment of the right lower lobe is either no longer present or has been obscured by a larger opacity present on image 78 of the current study, which measures in excess of 5 cm in diameter. There is some increased interstitial opacity in the lung bases. IMPRESSION: New and/or enlarged opacities in the right lower lobe and left upper lobe. Given the patient's history of lung adenocarcinoma with bronchoalveolar features, this may represent metastatic disease or metachronous primary lesions. Electronically signed by Royer Gardiner 01/02/2020 7:16 AM
[2020-01-02 07:32] LABS: RETIC% 2.17 % (0.8-2.1)
[2020-01-02 08:31] LABS: TSH 2.51 uIUmL (0.27-4.20)
[2020-01-02] MEDS ORDERED: TRANDATE PO SCH (09:00)
[2020-01-02] MEDS ORDERED: LIPITOR PO SCH (09:00)
[2020-01-02] MEDS ORDERED: PRILOSEC PO SCH (09:00)
[2020-01-02] MEDS: ALDACTONE PO SCH (09:46)
[2020-01-02] MEDS: APRESOLINE PO SCH ×3 (09:46→21:33)
[2020-01-02] MEDS: COZAAR PO SCH (09:47)
[2020-01-02] MEDS: CENTRUM SILVER PO SCH (09:47)
[2020-01-02] MEDS: DEPAKOTE SPRINKLE PO SCH ×2 (09:48→21:33)
[2020-01-02] MEDS: ELIQUIS PO SCH ×2 (09:49→21:38)
[2020-01-02] MEDS: FOLIC ACID PO SCH (09:49)
[2020-01-02] MEDS: LASIX PO SCH (09:50)
[2020-01-02] MEDS: IMDUR PO SCH (09:50)
[2020-01-02] MEDS: RANEXA PO SCH ×2 (09:51→21:32)
[2020-01-02] MEDS: VITAMIN B-12 PO SCH (09:52)
[2020-01-02 12:09] LABS: BASO# 0.01 X1000 (0.0-0.2); BASO% 0.2 % (0.0-0.8); EOS# 0.63 X1000 (0.0-0.7); EOS% 9.8 % (0.0-10.0); HEMATOCRIT 36.1 % (42.0-52.0); IMM GRAN# 0.02 X1000 (0.0-0.04); IMM GRAN% 0.3 % (0.0-0.5); LYMPH# 0.86 X1000 (1.2-3.4); LYMPH% 13.3 % (20.5-51.1); MCH 33.1 PG (27-31); MCHC 33.2 g/dL (33-37); MCV 99.4 FL (81-99); MONO# 0.67 X1000 (0.11-0.59); MONO% 10.4 % (1.7-9.3); MPV 10.8 FL (7.4-10.4); NEUT# 4.26 X1000 (1.4-6.5); PLT 175 X1000 (130-400); RBC 3.63 XMIL (4.7-6.1); RDW 13.5 % (11.5-14.5); WBC 6.45 X1000 (4.8-10.8)
[2020-01-02 12:44] LABS: CALCIUM 9.2 mg/dL (8.8-10.2); CREATININE 1.3 mg/dL (0.7-1.2); POTASSIUM 4.4 mmol/L (3.5-5.1)
[2020-01-02] MEDS: TRANDATE PO SCH ×2 (15:41→21:32)
[2020-01-02] MEDS ORDERED: ZITHROMAX 500 MG/NS 500 MG/250 ML IVPB IV SCH (20:00)
[2020-01-02] MEDS ORDERED: ROCEPHIN 1 GM in NS 50 ML IV SCH (21:00)
[2020-01-02] MEDS ORDERED: DESYREL PO SCH (21:00)
[2020-01-02] MEDS ORDERED: ASPIRIN EC PO SCH (21:00)
[2020-01-02] MEDS ORDERED: RESTORIL PO SCH (21:00)
[2020-01-02] MEDS: LIPITOR PO SCH (21:33)
--- NOTE | 2020-01-03 03:09 | PULMONOLOGY CONSULTATION ---
DATE: 01/02/2020 REQUESTING CLINICIAN: Mg Earl MD. REASON FOR CONSULTATION: Metastatic lung cancer versus primary. HISTORY OF PRESENT ILLNESS: Mr. Dueñas is a 74-year-old white male who is followed in my clinic. He completed SBRT in August of 2017 for a pulmonary nodule in the right lower lobe and in the left upper lobe. He developed areas of pneumonitis in both of these regions. His most recent PET scan was performed 11/21/2019, which reveals bilateral ground-glass nodules in the area of prior radiation. These areas are not FDG avid. He presented to the emergency room 01/01/2020 with substernal anterior chest pain. The patient took 3 nitroglycerin's and this pain was resolved. The patient has a component of dementia. He frequently reports posterior chest wall pain likely related to prior radiation. His confirms that the pain was anterior in nature. He denies fevers, chills, cough, or sputum production. PAST MEDICAL HISTORY: 1. Status post SBRT bilaterally as outlined above with focal areas of radiation pneumonitis/fibrosis. 2. Several myocardial infarctions with multiple prior stent placement. Previous coronary artery bypass grafting. 3. History of melanoma. 4. Diabetes mellitus. 5. Spinal stenosis. 6. Chronic obstructive pulmonary disease. 7. Arthritis. 8. Obstructive sleep apnea. 9. 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 10. Status post ankle fracture requiring pinning in 1987. 11. Status post cholecystectomy. 12. Status post amputation right great toe secondary to infection. SOCIAL HISTORY: The patient has an [id number] history for tobacco but has not smoked for several years. No alcohol use. He was previously exposed to asbestos and worked at [employer] for 36 years. Previously raised horses. FAMILY HISTORY: Positive for heart disease. REVIEW OF SYSTEMS: As noted in the HPI. PHYSICAL EXAMINATION: General: Reveals an obese white male, resting comfortably and in no distress. Vital signs: BP 127/71, heart rate 82, respiratory rate 18, oxygen saturation 99% on room air. HEENT: Pupils are equal and reactive. Oropharynx appears clear. Neck: Supple. Chest: Reveals good air entry bilaterally without wheezing or rhonchi. Cardiac: S1, S2. Abdomen: Soft. Extremities: Without edema. LABORATORIES: CT scan of the thorax is reviewed, he has ground-glass changes in the left upper lobe and right lower lobe. To my evaluation, they are not significantly different. Initial CT scan was compared to an old CT scan in 2017. IMPRESSION: A 74-year-old with prior radiation therapy for 2 nodular areas in 2017. Most recent PET scan 1 month ago did not reveal evidence of active disease. The patient presented with anterior chest pain, according to his . The patient has extensive coronary artery disease and this should be presumed to represent angina. RECOMMENDATIONS: 1. Okay for discharge from a pulmonary standpoint. He has already has a PET scan scheduled for the future. 2. Check troponin level in the morning to rule out myocardial ischemia. 3. Recommend follow up with Dr. Marks after discharge. cc: Rodri Maruice MD
[2020-01-03] MEDS: DUONEB (A & A) INH SCH (03:45)
[2020-01-03] MEDS ORDERED: PRILOSEC PO SCH (07:00)
[2020-01-03 07:02] LABS: BASO# 0.02 X1000 (0.0-0.2); BASO% 0.3 % (0.0-0.8); EOS# 0.56 X1000 (0.0-0.7); EOS% 8.8 % (0.0-10.0); HEMATOCRIT 36.7 % (42.0-52.0); HEMOGLOBIN 12.4 g/dL (14.0-18.0); IMM GRAN# 0.02 X1000 (0.0-0.04); IMM GRAN% 0.3 % (0.0-0.5); LYMPH% 17.3 % (20.5-51.1); MCH 33.3 PG (27-31); MCHC 33.8 g/dL (33-37); MCV 98.7 FL (81-99); MONO# 0.62 X1000 (0.11-0.59); MONO% 9.7 % (1.7-9.3); MPV 10.7 FL (7.4-10.4); NEUT# 4.05 X1000 (1.4-6.5); NEUT% 63.6 % (42.2-75.2); PLT 169 X1000 (130-400); RBC 3.72 XMIL (4.7-6.1); RDW 13.5 % (11.5-14.5); WBC 6.37 X1000 (4.8-10.8)
[2020-01-03 07:47] LABS: CALCIUM 9.7 mg/dL (8.8-10.2); CREATININE 1.4 mg/dL (0.7-1.2); POTASSIUM 4.4 mmol/L (3.5-5.1)
[2020-01-03] MEDS ORDERED: POLYSPORIN OINTMENT TOP SCH (09:00)
[2020-01-03 09:06] VITALS: BP 167/97
[2020-01-03] MEDS: DEPAKOTE SPRINKLE PO SCH (10:36)
[2020-01-03] MEDS: ELIQUIS PO SCH (10:36)
[2020-01-03] MEDS: RANEXA PO SCH (10:37)
[2020-01-03] MEDS: LIPITOR PO SCH (10:37)
[2020-01-03] MEDS: VITAMIN B-12 PO SCH (10:37)
[2020-01-03] MEDS: APRESOLINE PO SCH (10:37)
[2020-01-03] MEDS: COZAAR PO SCH (10:37)
[2020-01-03] MEDS: LASIX PO SCH (10:37)
[2020-01-03] MEDS: CENTRUM SILVER PO SCH (10:37)
[2020-01-03] MEDS: IMDUR PO SCH (10:37)
[2020-01-03] MEDS: FOLIC ACID PO SCH (10:37)
[2020-01-03] MEDS: ALDACTONE PO SCH (10:38)
[2020-01-03] MEDS: TRANDATE PO SCH (10:38)
--- NOTE | 2020-01-04 08:33 | DISCHARGE SUMMARY ---
ADMISSION DATE: 01/02/2020 DISCHARGE DATE: 01/03/2020 DISCHARGE DIAGNOSES: 1. Chest pain, resolved. Negative cardiac enzymes. 2. Extensive history of coronary artery disease. 3. New and/or enlarged opacities in the right lower lobe and left upper lobe evaluated by Pulmonary Department. He has already a PET scan scheduled for the future and he has a history of cancer. 4. Status post split beat rotation therapy (SBRT) bilaterally with focal areas of radiation pneumonitis/fibrosis. 5. History of myocardial infarction with multiple prior stent placements 6. History of melanoma. 7. Diabetes. 8. Spinal stenosis. 9. Chronic obstructive pulmonary disease. 10. Arthritis. 11. Obstructive sleep apnea. 12. 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 13. Status post ankle fracture requiring pinning in 1997. 14. Status post cholecystectomy. 15. Status post amputation of the right great toe secondary to infection. HOSPITAL COURSE: A 73-year-old, male with multiple comorbidities as outlined above, presented to the emergency department and was admitted on 01/02/2020 due to 2 to 3 day history of right-sided chest pain which is not radiating. It has been constant and nonspecific. No associated anginal type symptoms with this. Possible dry cough, but is not pleuritic in nature. We did a CT scan that showed left upper lobe and right lower lobe new and/or enlarged opacities and given this patient's history of lung adenocarcinoma with bronchoalveolar fissure, this may represent metastatic disease and/or metachronous primary lesions. This patient has been followed by Radiation Oncology and also by Pulmonary Department and actually the facility specialist evaluated this patient and he is okay to discharge this patient home because he has a PET scan scheduled already in the future. His troponins have been normal. He is no longer complaining of chest pain, which basically was atypical for coronary artery disease. He has been recommended to follow Dr. Marks after discharge. He seems to be stable. His is at the bedside and agrees with the discharge and the plan. PHYSICAL EXAMINATION: Vital Signs: Temperature 98.3 degrees, pulse 92, respiratory rate 18, blood pressure 167/97, oxygen saturation 100% on room air. HEENT: Head normocephalic. No trauma. PERRLA. Neck: Supple. No JVD. No masses. Central trachea. Chest: Clear to auscultation. Some crepitus at the bases, mostly on the right side. Extremities: Some trace edema. No clubbing. No cyanosis. Right hand amputation. Neurological: The patient is awake and alert. He is oriented. He is following commands. LABORATORY: WBC 6.3, hemoglobin 12.4, hematocrit 36.7, platelet 169,000. Sodium 138, potassium 4.4, chloride 99, bicarbonate 25, BUN 17, creatinine 1.4, glucose 161, calcium 9.7. High sensitive troponin 29. DISCHARGE MEDICATIONS: Basically he will continue with his home medication apixaban 5 mg p.o. b.i.d., aspirin 81 mg p.o. at bedtime, atorvastatin 20 mg p.o. daily, vitamin B12/folic acid 1 tablet p.o. daily, divalproex sodium 135 mg p.o. b.i.d., folic acid 1 mg p.o. daily, Lasix 40 mg p.o. daily, hydralazine 25 mg p.o. t.i.d., isosorbide mononitrate 60 mg p.o. daily, labetalol 400 mg p.o. t.i.d., losartan 50 mg p.o. daily, Centrum Silver 1 tablet p.o. daily, nitroglycerin 0.4 mg sublingual as needed chest pain, omeprazole 40 mg p.o. daily, Oxycodone/acetaminophen 10/325 mg 1 tablet p.o. b.i.d. as needed, quetiapine 50 mg p.o. at bedtime, Ranexa 1000 mg p.o. b.i.d., spironolactone 25 mg p.o. daily, temazepam 30 mg p.o. at bedtime and trazodone 50 mg p.o. at bedtime. cc: Mg Earl MD
== END 2020-01-03 11:32 | disposition home or self-care (01) | DRG 313 ==
LOC: ED 17:41 → SUATTDRO 01-02 00:02 → EDIPHOLD 01-02 00:02 → 4N 01-02 15:39
PROVIDERS: ATTEND Internal Medicine